=== PATIENT | female | born 1990 | race Hispanic/Latino ===

== ENCOUNTER 2017-10-15 11:53 | Emergency (ER) | payer SELFPAY ==
--- NOTE | 2017-10-15 12:59 | ER ---
Nurse's Notes [facility] Name: Sharon Bee Age: 27 yrs Sex: Female : 1990 Arrival Date: 10/15/2017 Time: 12:01 Bed DIS1 Private MD: None, None Diagnosis: Acute pharyngitis Presentation: 10/15 12:18 Presenting complaint: Patient states: sore throat and cough x 2 days ago. Transition of aa5 care: patient was not received from another setting of care. Onset of symptoms was September 2017. Risk Assessment: Do you want to hurt yourself or someone else? Patient reports no desire to harm self or others. Initial Sepsis Screen: Does the patient meet any 2 criteria? No. Patient's initial sepsis screen is negative. Does the patient have a suspected source of infection? No. Patient's initial sepsis screen is negative. Care prior to arrival: None. 12:18 Method Of Arrival: Ambulatory aa5 12:18 Acuity: MARZENA 4 aa5 Triage Assessment: 12:45 General: Appears in no apparent distress. comfortable, well groomed, well developed, sg well nourished, Behavior is calm, cooperative, appropriate for age. 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 - Social history:: Smoking status: Patient uses tobacco products, smokes one-half pack cigarettes per day. - Ebola Screening: : No symptoms or risks identified at this time. Screenin:45 Abuse screen: Denies threats or abuse. Denies injuries from another. Nutritional sg screening: No deficits noted. Tuberculosis screening: No symptoms or risk factors identified. Never had TB. Fall Risk None identified. Assessment: 12:45 General: Appears in no apparent distress. comfortable, well groomed, well developed, sg well nourished, Behavior is calm, cooperative, appropriate for age. Pain: Complains of pain in sore throat. Neuro: Level of Consciousness is awake, alert, obeys commands, Oriented to person, place, time, situation, Reservoir Engineering Manager are equal bilaterally Moves all extremities. Full function Gait is steady, Speech is normal, Facial symmetry appears normal. Cardiovascular: Heart tones S1 S2 present Patient's skin is warm and dry. Chest pain is denied. Respiratory: Airway is patent Respiratory effort is even, unlabored, Respiratory pattern is regular, symmetrical, Breath sounds are clear. GI: No signs and/or symptoms were reported involving the gastrointestinal system. : No signs and/or symptoms were reported regarding the genitourinary system. EENT: Throat is pink. Derm: No signs and/or symptoms reported regarding the dermatologic system. Derm: Skin is pink, warm \T\ dry. Musculoskeletal: No signs and/or symptoms reported regarding the musculoskeletal system. Vital Signs: 12:19 BP 130 / 83; Pulse 85; Resp 16 S; Temp 98.3(TE); Pulse Ox 100% on R/A; Weight 86.18 kg aa5 (R); Height 5 ft. 4 in. (162.56 cm) (R); Pain 6/10; 12:19 Body Mass Index 32.61 (86.18 kg, 162.56 cm) aa5 ED Course: 12:01 Patient arrived in ED. mr 12:01 None, None is Private Physician. mr 12:02 Ashley Newberry FNP-C [facility]. snw 12:02 Urban Turner MD is Attending Physician. snw 12:19 Triage completed. aa5 12:19 Arm band placed on. aa5 12:45 Patient has correct armband on for positive identification. Bed in low position. Call sg light in reach. Pulse ox on. NIBP on. 13:03 Alexandru Mcgregor RN is Primary Nurse. sg 13:03 No provider procedures requiring assistance completed. Patient did not have IV access sg during this emergency room visit. Administered Medications: 13:03 Drug: Zithromax 500 mg Route: PO; sg Outcome: 12:59 Discharge ordered by . snw 13:03 Discharged to home ambulatory. sg 13:03 Condition: good 13:03 Discharge instructions given to patient, Instructed on discharge instructions, follow up and referral plans. safety practices, Demonstrated understanding of instructions, follow-up care, medications, Prescriptions given X 1. 13:04 Patient left the ED. sg Signatures: Alexandru Mcgregor RN RN sg Therrien, Shelly, FNP-C FNP-Csnw Deng, Nalini mr Rouse, Abbie, RN RN aa5
--- NOTE | 2017-10-15 12:59 | EDPHYS ---
Physician Documentation [facility] Name: Sharon Bee Age: 27 yrs Sex: Female : 1990 Arrival Date: 10/15/2017 Time: 12:01 Bed DIS1 Private MD: None, None ED Physician Urban Turner HPI: 10/15 13:18 This 27 yrs old Female presents to ER via Ambulatory with complaints of Sore snw Throat. 13:18 The patient presents with sore throat. The patient describes throat pain as scratchy, snw suffocating. Onset: The symptoms/episode began/occurred suddenly, 2 day(s) ago, and became persistent. Severity of symptoms: At their worst the symptoms were moderate. Associated signs and symptoms: The patient has no apparent associated signs or symptoms. The patient has not experienced similar symptoms in the past. It is unknown whether or not the patient has recently seen a physician. 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 - Social history:: Smoking status: Patient uses tobacco products, smokes one-half pack cigarettes per day. - Ebola Screening: : No symptoms or risks identified at this time. ROS: 13:17 Constitutional: Negative for fever, chills, and weight loss, Eyes: Negative for injury, snw pain, redness, and discharge, Neck: Negative for injury, pain, and swelling, Cardiovascular: Negative for chest pain, palpitations, and edema, Respiratory: Negative for shortness of breath, cough, wheezing, and pleuritic chest pain, Abdomen/GI: Negative for abdominal pain, nausea, vomiting, diarrhea, and constipation, Back: Negative for injury and pain, : Negative for injury, bleeding, discharge, and swelling, MS/Extremity: Negative for injury and deformity, Skin: Negative for injury, rash, and discoloration, Neuro: Negative for headache, weakness, numbness, tingling, and seizure. 13:17 ENT: Positive for sore throat. Exam: 13:16 Constitutional: This is a well developed, well nourished patient who is awake, alert, snw and in no acute distress. Head/Face: Normocephalic, atraumatic. Eyes: Pupils equal round and reactive to light, extra-ocular motions intact. Lids and lashes normal. Conjunctiva and sclera are non-icteric and not injected. Cornea within normal limits. Periorbital areas with no swelling, redness, or edema. Chest/axilla: Normal chest wall appearance and motion. Nontender with no deformity. No lesions are appreciated. Cardiovascular: Regular rate and rhythm with a normal S1 and S2. No gallops, murmurs, or rubs. Normal PMI, no JVD. No pulse deficits. Respiratory: Lungs have equal breath sounds bilaterally, clear to auscultation and percussion. No rales, rhonchi or wheezes noted. No increased work of breathing, no retractions or nasal flaring. Abdomen/GI: Soft, non-tender, with normal bowel sounds. No distension or tympany. No guarding or rebound. No evidence of tenderness throughout. Back: No spinal tenderness. No costovertebral tenderness. Full range of motion. Skin: Warm, dry with normal turgor. Normal color with no rashes, no lesions, and no evidence of cellulitis. MS/ Extremity: Pulses equal, no cyanosis. Neurovascular intact. Full, normal range of motion. Neuro: Awake and alert, GCS 15, oriented to person, place, time, and situation. Cranial nerves II-XII grossly intact. Motor strength 5/5 in all extremities. Sensory grossly intact. Cerebellar exam normal. Normal gait. 13:16 ENT: TM's: not visable, because of cerumen, Nose: is normal, Mouth: is normal, Posterior pharynx: Tonsils: bilaterally enlarged, with erythema, erythema, that is moderate, Dental exam: normal, Breath odor: is normal. 13:16 Neck: External neck: is normal, ROM/movement: is normal, Lymph nodes: lymphadenopathy is appreciated, anterior cervical nodes. Vital Signs: 12:19 BP 130 / 83; Pulse 85; Resp 16 S; Temp 98.3(TE); Pulse Ox 100% on R/A; Weight 86.18 kg aa5 (R); Height 5 ft. 4 in. (162.56 cm) (R); Pain 6/10; 12:19 Body Mass Index 32.61 (86.18 kg, 162.56 cm) aa5 MDM: 12:46 Patient medically screened. snw 13:17 Data reviewed: vital signs, nurses notes. Data interpreted: Pulse oximetry: on room air snw is 100 %. Interpretation: normal. Counseling: I had a detailed discussion with the patient and/or guardian regarding: the historical points, exam findings, and any diagnostic results supporting the discharge/admit diagnosis, the need for outpatient follow up, to return to the emergency department if symptoms worsen or persist or if there are any questions or concerns that arise at home. Special discussion: Based on the history and exam findings, there is no indication for further emergent testing or inpatient evaluation. I discussed with the patient/guardian the need to see the primary care provider for further evaluation of the symptoms. Administered Medications: 13:03 Drug: Zithromax 500 mg Route: PO; sg Disposition: 10/15/17 12:59 Discharged to Home. Impression: Acute pharyngitis. - Condition is Stable. - Discharge Instructions: Hypertension, Pharyngitis, Rehydration, Adult. - Prescriptions for Zithromax 500 mg Oral Tablet - take 1 tablet by ORAL route once daily for 5 days; 5 tablet. - Medication Reconciliation Form, Thank You Letter, Antibiotic Education, Prescription Opioid Use form. - Follow up: Private Physician; When: 2 - 3 days; Reason: Recheck today's complaints, Continuance of care, Re-evaluation by your physician. Follow up: Emergency Department; When: As needed; Reason: Worsening of condition. Addendum: 10/18/2017 06:16 Co-signature as Attending Physician, Urban Turner MD. g s Signatures: Alexandru Mcgregor RN RN sg Ashley Newberry, PHOTOSTAT OPERATOR HELPER-C PHOTOSTAT OPERATOR HELPER-Csnw Abbie Rouse RN RN aa5 Urban Turner MD MD Corrections: (The following items were deleted from the chart) 10/15 13:04 12:59 10/15/2017 12:59 Discharged to Home. Impression: Acute pharyngitis. Condition is sg Stable. Forms are Medication Reconciliation Form, Thank You Letter, Antibiotic Education, Prescription Opioid Use. Follow up: Private Physician; When: 2 - 3 days; Reason: Recheck today's complaints, Continuance of care, Re-evaluation by your physician. Follow up: Emergency Department; When: As needed; Reason: Worsening of condition. snw
[2017-10-15] MEDS ORDERED: AZITHROMYCIN 250 MG TAB ONE (13:04)
[2017-10-15 13:09] VITALS: BP 130/83; TEMP 98.3; O2SAT 100
== END 2017-10-15 13:04 | disposition home or self-care (01) ==
LOC: ER 11:53
DX: J02.9 Acute pharyngitis, unspecified (principal); F17.210 Nicotine dependence, cigarettes, uncomplicated
CPT/HCPCS: 99283

== ENCOUNTER 2017-10-18 11:03 | Emergency (ER) | payer SELFPAY ==
[2017-10-18] MEDS ORDERED: DEXAMETHASONE 10 MG/ML VIAL ONE (11:36)
--- NOTE | 2017-10-18 12:24 | ER ---
Nurse's Notes [facility] Name: Sharon Bee Age: 27 yrs Sex: Female : 1990 Arrival Date: 10/18/2017 Time: 11:05 Bed 12 Private MD: None, None Diagnosis: Streptococcal pharyngitis Presentation: 10/18 11:11 Presenting complaint: Patient states: " I was seen her about 3 days ago and dx w/ ph pharyngitis but my throat is still really hurting and my L ear hurts." Pt denies fever, N/V/D. Transition of care: patient was not received from another setting of care. Onset of symptoms was October 18, 2017. Risk Assessment: Do you want to hurt yourself or someone else? Patient reports no desire to harm self or others. Initial Sepsis Screen: Does the patient meet any 2 criteria? Yes Does the patient have a suspected source of infection? No. Patient's initial sepsis screen is negative. Care prior to arrival: None. 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 - Social history:: Smoking status: Patient uses tobacco products, denies chronic smoking, but will smoke occasionally. - Ebola Screening: : No symptoms or risks identified at this time. Screenin:18 Abuse screen: Denies threats or abuse. Denies injuries from another. Nutritional ph screening: No deficits noted. Tuberculosis screening: No symptoms or risk factors identified. Fall Risk None identified. Assessment: 11:16 General: Appears in no apparent distress. comfortable, Behavior is calm, cooperative, ph appropriate for age, Denies fever. Pain: Complains of pain in left ear. Neuro: Level of Consciousness is awake, alert, obeys commands, Oriented to person, place, time, situation. Cardiovascular: Capillary refill < 3 seconds Patient's skin is warm and dry. Respiratory: Airway is patent Respiratory effort is even, unlabored, Breath sounds are clear bilaterally. Denies cough, shortness of breath. GI: No signs and/or symptoms were reported involving the gastrointestinal system. EENT: Throat is reddened bilaterally Reports pain when swallowing. Derm: Skin is intact, is healthy with good turgor, Skin is pink, warm \\T\\ dry. Musculoskeletal: Circulation, motion, and sensation intact. Range of motion: intact in all extremities. Vital Signs: 11:13 BP 119 / 78; Pulse 68; Resp 20; Temp 97.8(TE); Pulse Ox 100% on R/A; Weight 86.18 kg; ph Height 5 ft. 4 in. (162.56 cm); Pain 8/10; 11:13 Body Mass Index 32.61 (86.18 kg, 162.56 cm) ph ED Course: 11:05 Patient arrived in ED. sb2 11:05 None, None is Private Physician. sb2 11:09 Fernando Madrigal [facility]. pm1 11:09 Manolo Bravo MD is Attending Physician. pm1 11:11 Tina Gaston RN is Primary Nurse. ph 11:13 Triage completed. ph 11:14 Arm band placed on. ph 11:18 Patient has correct armband on for positive identification. Bed in low position. Call light in reach. 12:58 No provider procedures requiring assistance completed. Patient did not have IV access hb during this emergency room visit. Administered Medications: 11:49 Drug: Decadron 10 mg Route: IM; Site: right vastus lateralis; ph 12:41 Drug: Bicillin L-A 1.2 million units Route: IM; Site: right gluteus; hb Outcome: 12:23 Discharge ordered by . pm1 12:58 Discharged to home ambulatory. hb 12:58 Condition: stable 12:58 Discharge instructions given to patient, Instructed on discharge instructions, follow up and referral plans. medication usage, Demonstrated understanding of instructions, follow-up care, medications. 12:58 Patient left the ED. hb Signatures: Tina Gaston RN RN Fernando Madrigal NP STUDENT TEACHER pm1 Enma Pritchard RN RN Caron Lewis sb2
--- NOTE | 2017-10-18 12:24 | EDPHYS ---
Physician Documentation [facility] Name: Sharon Bee Age: 27 yrs Sex: Female : 1990 Arrival Date: 10/18/2017 Time: 11:05 Bed 12 Private MD: None, None ED Physician Manolo Bravo HPI: 10/18 11:25 This 27 yrs old Female presents to ER via Ambulatory with complaints of Sore pm1 Throat, Ear Pain. 11:25 The patient presents with sore throat. The patient describes throat pain as constant. pm1 Onset: The symptoms/episode began/occurred 5 day(s) ago. Severity of symptoms: in the emergency department the symptoms are actually worse. Modifying factors: The symptoms are alleviated by nothing, the symptoms are aggravated by foods, swallowing, Patient's oral intake status: good Denies contact with similarly ill indivduals. Associated signs and symptoms: Pertinent positives: earache, Pertinent negatives chills, fever. The patient has been recently seen at the [facility] Emergency Department, this week, for similar complaints was given a prescription for antibiotics. Patient seen here 3 days ago and prescribed azithromycin. Patient complaining of sore throat and left earache. Sore throat not improved with abs therapy. 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 - Social history:: Smoking status: Patient uses tobacco products, denies chronic smoking, but will smoke occasionally. - Ebola Screening: : No symptoms or risks identified at this time. ROS: 11:25 Constitutional: Negative for fever, chills, and weight loss, Eyes: Negative for injury, pm1 pain, redness, and discharge. 11:25 Neck: Negative for injury, pain, and swelling, Cardiovascular: Negative for chest pain, palpitations, and edema, Respiratory: Negative for shortness of breath, cough, wheezing, and pleuritic chest pain, Abdomen/GI: Negative for abdominal pain, nausea, vomiting, diarrhea, and constipation, Back: Negative for injury and pain, : Negative for injury, bleeding, discharge, and swelling, MS/Extremity: Negative for injury and deformity, Skin: Negative for injury, rash, and discoloration, Neuro: Negative for headache, weakness, numbness, tingling, and seizure. 11:25 ENT: Positive for ear pain, sore throat, Negative for sinus congestion, sinus pain, difficulty swallowing, difficulty handling secretions. Exam: 11:25 Constitutional: This is a well developed, well nourished patient who is awake, alert, pm1 and in no acute distress. Head/Face: Normocephalic, atraumatic. Eyes: Pupils equal round and reactive to light, extra-ocular motions intact. Lids and lashes normal. Conjunctiva and sclera are non-icteric and not injected. Cornea within normal limits. Periorbital areas with no swelling, redness, or edema. 11:25 Chest/axilla: Normal chest wall appearance and motion. Nontender with no deformity. No lesions are appreciated. Cardiovascular: Regular rate and rhythm with a normal S1 and S2. No gallops, murmurs, or rubs. Normal PMI, no JVD. No pulse deficits. Respiratory: Lungs have equal breath sounds bilaterally, clear to auscultation and percussion. No rales, rhonchi or wheezes noted. No increased work of breathing, no retractions or nasal flaring. Abdomen/GI: Soft, non-tender, with normal bowel sounds. No distension or tympany. No guarding or rebound. No evidence of tenderness throughout. Back: No spinal tenderness. No costovertebral tenderness. Full range of motion. Skin: Warm, dry with normal turgor. Normal color with no rashes, no lesions, and no evidence of cellulitis. MS/ Extremity: Pulses equal, no cyanosis. Neurovascular intact. Full, normal range of motion. 11:25 ENT: External ear(s): are unremarkable, Ear canal(s): cerumen impaction, occluding the right ear canal, occluding the left ear canal, TM's: not visable, because of cerumen, Nose: is normal, no acute changes, Mouth: is normal, no acute changes, Posterior pharynx: Airway: normal, no evidence of obstruction, patent, Tonsils: bilaterally enlarged, with erythema, no exudate, no ulcerations, erythema, that is moderate, exudate, is not appreciated, peritonsillar mass, is not appreciated, pooling of secretions, is not appreciated. 11:25 Neck: C-spine: vertebral tenderness, is not appreciated, crepitus, is not appreciated, Lymph nodes: lymphadenopathy is appreciated, posterior cervical nodes. 11:25 Neuro: Orientation: is normal, Motor: is normal, moves all fours, Gait: is steady, at a normal pace, without difficulty. Vital Signs: 11:13 BP 119 / 78; Pulse 68; Resp 20; Temp 97.8(TE); Pulse Ox 100% on R/A; Weight 86.18 kg; ph Height 5 ft. 4 in. (162.56 cm); Pain 8/10; 11:13 Body Mass Index 32.61 (86.18 kg, 162.56 cm) ph MDM: 11:11 Patient medically screened. pm1 12:21 Data reviewed: vital signs. Data interpreted: Pulse oximetry: on room air is 100 %. pm1 Interpretation: normal. Counseling: I had a detailed discussion with the patient and/or guardian regarding: the historical points, exam findings, and any diagnostic results supporting the discharge/admit diagnosis, lab results, the need for outpatient follow up, to return to the emergency department if symptoms worsen or persist or if there are any questions or concerns that arise at home. 10/18 11:27 Order name: [place] Screen Profile; Complete Time: 12:18 pm1 10/18 11:28 Order name: Strep; Complete Time: 12:18 pm1 10/18 11:25 Order name: Urine Dipstick-Ancillary (obtain specimen); Complete Time: 11:49 pm1 10/18 11:25 Order name: Urine Test (obtain specimen); Complete Time: 11:49 pm1 Administered Medications: 11:49 Drug: Decadron 10 mg Route: IM; Site: right vastus lateralis; ph 12:41 Drug: Bicillin L-A 1.2 million units Route: IM; Site: right gluteus; hb Disposition: 18:04 Co-signature as Attending Physician, Manolo Bravo MD. rn Disposition: 10/18/17 12:23 Discharged to Home. Impression: Streptococcal pharyngitis. - Condition is Stable. - Discharge Instructions: Strep Throat. - Medication Reconciliation Form, Thank You Letter, Antibiotic Education, Work release form form. - Follow up: Emergency Department; When: As needed; Reason: Worsening of condition. Follow up: Private Physician; When: 2 - 3 days; Reason: Recheck today's complaints, Continuance of care, Re-evaluation by your physician. - Problem is new. - Symptoms have improved. Signatures: Dispatcher [employer] EDMS Manolo Bravo MD MD rn Hall, Patricia, RN RN Fernando Madrigal, FOOD COUNTER ATTENDANT FOOD COUNTER ATTENDANT pm1 Enma Pritchard RN RN Corrections: (The following items were deleted from the chart) 12:58 12:23 10/18/2017 12:23 Discharged to Home. Impression: Streptococcal pharyngitis. hb Condition is Stable. Forms are Medication Reconciliation Form, Thank You Letter, Antibiotic Education, Prescription Opioid Use. Follow up: Emergency Department; When: As needed; Reason: Worsening of condition. Follow up: Private Physician; When: 2 - 3 days; Reason: Recheck today's complaints, Continuance of care, Re-evaluation by your physician. Problem is new. Symptoms have improved. pm1
[2017-10-18] MEDS ORDERED: PEN G BENZ LA 1.2MU/2ML SYRINGE IM ONE (12:40)
[2017-10-18 13:02] VITALS: BP 119/78; TEMP 97.8; O2SAT 100
== END 2017-10-18 12:58 | disposition home or self-care (01) ==
LOC: ER 11:03
DX: J02.0 Streptococcal pharyngitis (principal)
CPT/HCPCS: 36415; 86308; 87081; 96372; 99283; J0561; J1100

== ENCOUNTER 2018-05-08 22:01 | Emergency (ER) | payer SELFPAY ==
--- OUTSIDE RECORDS SUMMARY | 2018-05-08 22:04 | XMS REPORT ---
:1990 [facility] Address [address] [place] [address] Dr. Amaral [address] [place] [id number] Care Team Providers Name Role Phone Unavailable Unavailable Unavailable Problems This patient has no known problems. Allergies, Adverse Reactions, Alerts This patient has no known allergies or adverse reactions. Medications This patient has no known medications.
[2018-05-08 23:41] LABS: Protime INR 0.86
[2018-05-08 23:47] LABS: Absolute Lymphocytes (CBC) 2.8 K/uL (0.7-4.9); Absolute Monocytes 0.8 K/uL (0.1-1.3); Absolute Neutrophil 4.7 K/uL (1.8-8.0); Basophils % 0.3 % (0-1.3); Eosinophils % 6.8 % (0-4.4); Hematocrit 38.6 % (36.0-45.0); Lymphocytes % 31.4 % (15.3-44.8); MPV 8.2 fL (7.6-11.3); Monocytes % 8.9 % (3.3-12.3); RBC Red Blood Cell Count 4.11 M/uL (3.86-4.86)
[2018-05-08 23:57] LABS: ALT/SGPT 20 U/L (12-78); AST/SGOT 10 U/L (15-37); Albumin 3.5 g/dL (3.4-5.0); Alkaline Phosphatase 74 U/L (45-117); BUN Blood Urea Nitrogen 21 mg/dL (7-18); Bicarbonate 26 mmol/L (21-32); Bilirubin Direct 0.1 mg/dL (0-0.2); Bilirubin Total 0.2 mg/dL (0.2-1.0); Glucose Level 65 mg/dL (74-106); NT PRO-BNP 29 pg/mL (<125); Potassium 3.7 mmol/L (3.5-5.1); Protein, Total 6.9 g/dL (6.4-8.2); Sodium Level 141 mmol/L (136-145); Troponin (Emerg Dept Use Only) < 0.02 ng/mL (0.0-0.045)
--- NOTE | 2018-05-09 00:08 | ER ---
Nurse's Notes [facility] Name: Sharon Bee Age: 27 yrs Sex: Female : 1990 Arrival Date: 05/08/2018 Time: 22:03 Bed 16 Private MD: Diagnosis: Chest pain, unspecified Presentation: 05/08 22:16 Presenting complaint: Patient states: "I've been getting this pain in my chest off and lp1 on for the last 2 days and I just wanted to get it checked out"; Patient states pain to mid chest and back intermittently without exertion; Denies shortness of breath, dizziness, N/V;. Transition of care: patient was not received from another setting of care. Onset of symptoms was May 07, 2018. Risk Assessment: Do you want to hurt yourself or someone else? Patient reports no desire to harm self or others. Initial Sepsis Screen: Does the patient meet any 2 criteria? No. Patient's initial sepsis screen is negative. Does the patient have a suspected source of infection? No. Patient's initial sepsis screen is negative. Care prior to arrival: None. 22:16 Method Of Arrival: Ambulatory lp1 22:16 Acuity: MARZENA 3 lp1 Triage Assessment: 22:21 General: Appears in no apparent distress. comfortable, Behavior is calm, cooperative, lp1 appropriate for age. Pain: Denies pain. Cardiovascular: Patient's skin is warm and dry. 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 - Social history:: Smoking status: Patient uses tobacco products, denies chronic smoking, but will smoke occasionally, Patient uses alcohol, occasionally. street drugs, marijuana. - Ebola Screening: : No symptoms or risks identified at this time. Screenin:21 Abuse screen: Denies threats or abuse. Denies injuries from another. Nutritional lp1 screening: No deficits noted. Tuberculosis screening: No symptoms or risk factors identified. Fall Risk None identified. Assessment: 22:20 General: Appears in no apparent distress. comfortable, Behavior is calm, cooperative, rr5 appropriate for age. Pain: Complains of pain in chest Pain radiates to back Pain currently is 0 out of 10 on a pain scale. Quality of pain is described as sharp, Pain began gradually, Is intermittent. Neuro: Level of Consciousness is awake, alert, obeys commands, Oriented to person, place, time, situation, Appropriate for age. Cardiovascular: Reports chest pain, Capillary refill < 3 seconds Patient's skin is warm and dry. Respiratory: Airway is patent Respiratory effort is even, unlabored, Respiratory pattern is regular, symmetrical. GI: No signs and/or symptoms were reported involving the gastrointestinal system. : No signs and/or symptoms were reported regarding the genitourinary system. EENT: No signs and/or symptoms were reported regarding the EENT system. Derm: Skin is intact, Skin temperature is warm. Musculoskeletal: Capillary refill < 3 seconds, Range of motion: intact in all extremities. 23:20 Reassessment: Patient appears in no apparent distress at this time. No changes from rr5 previously documented assessment. Patient and/or family updated on plan of care and expected duration. Pain level reassessed. awaiting for laboratory results. 05/09 00:22 Reassessment: Patient appears in no apparent distress at this time. Patient is alert, rr5 oriented x 3, equal unlabored respirations, skin warm/dry/pink. discharge instruction given and explained without complaints made. Patient denies pain at this time. Vital Signs: 05/08 22:19 BP 124 / 78; Pulse 85; Resp 16; Temp 99(O); Pulse Ox 100% on R/A; Weight 81.65 kg; lp1 Height 5 ft. 4 in. (162.56 cm); Pain 0/10; 23:20 BP 115 / 70; Pulse 61; Resp 17; Pulse Ox 100% ; rr5 05/09 00:20 BP 118 / 66; Pulse 64; Resp 17; Pulse Ox 99% ; rr5 05/08 22:19 Body Mass Index 30.90 (81.65 kg, 162.56 cm) lp1 ED Course: 05/08 22:03 Patient arrived in ED. am2 22:13 Fernando Madrigal NP is PHCP. pm1 22:13 Doug Wilson MD is Attending Physician. pm1 22:17 Luevano, Bebeto, RN is Primary Nurse. rr5 22:19 Triage completed. lp1 22:20 Arm band placed on left wrist. lp1 22:20 Patient has correct armband on for positive identification. Placed in gown. Bed in low rr5 position. Call light in reach. Side rails up X2. desk monitor on. Pulse ox on. NIBP on. 22:21 Patient maintains SpO2 saturation greater than 95% on room air. lp1 22:44 XRAY Chest (1 view) In Process Unspecified. EDMS 23:00 Inserted saline lock: 20 gauge in left antecubital area, using aseptic technique. Blood ds4 collected. 23:10 Basic Metabolic Panel Sent. ds4 23:10 CBC with Diff Sent. ds4 23:10 LFT's Sent. ds4 23:10 Magnesium Sent. ds4 23:10 NT PRO-BNP Sent. ds4 23:10 PT-INR Sent. ds4 23:10 Troponin (emerg Dept Use Only) Sent. ds4 02 00:24 No provider procedures requiring assistance completed. IV discontinued, intact, rr5 bleeding controlled, No redness/swelling at site. Pressure dressing applied. Administered Medications: No medications were administered Outcome: 00:06 Discharge ordered by MD. pm1 00:24 Discharged to home ambulatory, with family. rr5 00:24 Condition: stable 00:24 Discharge instructions given to patient, Instructed on discharge instructions, follow up and referral plans. Demonstrated understanding of instructions, follow-up care. 00:24 Patient left the ED. rr5 Signatures: Dispatcher [employer] EDTX Renee Duque, KELLEY RN lp1 Nam Bailey ds4 Fernando Madrigal NP VOLUNTEER SERVICES COORDINATOR pm1 Amanda Mendoza am2 Bebeto Luevano, RN RN rr5
--- NOTE | 2018-05-09 00:08 | EDPHYS ---
Physician Documentation [facility] Name: Sharon Bee Age: 27 yrs Sex: Female : 1990 Arrival Date: 05/08/2018 Time: 22:03 Bed 16 Private MD: ED Physician Doug Wilson HPI: 05/08 23:46 This 27 yrs old Female presents to ER via Ambulatory with complaints of Chest pm1 Pain. 23:46 The patient or guardian reports chest pain that is located primarily in the anterior pm1 aspect of left upper chest. The pain does not radiate. Associated signs and symptoms: Pertinent negatives: abdominal pain, cough, dizziness, nausea, shortness of breath, vomiting. The chest pain is described as sharp. Duration: The patient or guardian reports multiple episodes, that are intermittent, the episodes last approximately 2 second(s). Modifying factors: The symptoms are alleviated by nothing. the symptoms are aggravated by deep breath. Severity of pain: in the emergency department the pain has resolved. The patient has not experienced similar symptoms in the past. The patient has not recently seen a physician. Onset: 2 days ago. 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 - Social history:: Smoking status: Patient uses tobacco products, denies chronic smoking, but will smoke occasionally, Patient uses alcohol, occasionally. street drugs, marijuana. - Ebola Screening: : No symptoms or risks identified at this time. ROS: 23:46 Constitutional: Negative for fever, chills, and weight loss, Eyes: Negative for injury, pm1 pain, redness, and discharge, ENT: Negative for injury, pain, and discharge, Neck: Negative for injury, pain, and swelling. 23:46 Respiratory: Negative for shortness of breath, cough, wheezing, and pleuritic chest pain, Abdomen/GI: Negative for abdominal pain, nausea, vomiting, diarrhea, and constipation, Back: Negative for injury and pain, : Negative for injury, bleeding, discharge, and swelling, MS/Extremity: Negative for injury and deformity, Skin: Negative for injury, rash, and discoloration, Neuro: Negative for headache, weakness, numbness, tingling, and seizure. 23:46 Cardiovascular: Positive for chest pain, Negative for edema, orthopnea, palpitations. Exam: 23:46 Constitutional: This is a well developed, well nourished patient who is awake, alert, pm1 and in no acute distress. Head/Face: Normocephalic, atraumatic. Eyes: Pupils equal round and reactive to light, extra-ocular motions intact. Lids and lashes normal. Conjunctiva and sclera are non-icteric and not injected. Cornea within normal limits. Periorbital areas with no swelling, redness, or edema. ENT: Nares patent. No nasal discharge, no septal abnormalities noted. Tympanic membranes are normal and external auditory canals are clear. Oropharynx with no redness, swelling, or masses, exudates, or evidence of obstruction, uvula midline. Mucous membranes moist. Neck: Trachea midline, no thyromegaly or masses palpated, and no cervical lymphadenopathy. Supple, full range of motion without nuchal rigidity, or vertebral point tenderness. No Meningismus. 23:46 Cardiovascular: Regular rate and rhythm with a normal S1 and S2. No gallops, murmurs, or rubs. Normal PMI, no JVD. No pulse deficits. Respiratory: Lungs have equal breath sounds bilaterally, clear to auscultation and percussion. No rales, rhonchi or wheezes noted. No increased work of breathing, no retractions or nasal flaring. Abdomen/GI: Soft, non-tender, with normal bowel sounds. No distension or tympany. No guarding or rebound. No evidence of tenderness throughout. Back: No spinal tenderness. No costovertebral tenderness. Full range of motion. Skin: Warm, dry with normal turgor. Normal color with no rashes, no lesions, and no evidence of cellulitis. MS/ Extremity: Pulses equal, no cyanosis. Neurovascular intact. Full, normal range of motion. 23:46 Chest/axilla: Inspection: normal, Palpation: tenderness, of the anterior aspect of left upper chest, that totally reproduces the patient's complaints. 23:46 Neuro: Orientation: is normal, Motor: is normal, moves all fours. Vital Signs: 22:19 BP 124 / 78; Pulse 85; Resp 16; Temp 99(O); Pulse Ox 100% on R/A; Weight 81.65 kg; lp1 Height 5 ft. 4 in. (162.56 cm); Pain 0/10; 23:20 BP 115 / 70; Pulse 61; Resp 17; Pulse Ox 100% ; rr5 05/09 00:20 BP 118 / 66; Pulse 64; Resp 17; Pulse Ox 99% ; rr5 05/08 22:19 Body Mass Index 30.90 (81.65 kg, 162.56 cm) lp1 MDM: 05/08 22:13 Patient medically screened. pm1 23:48 Data reviewed: vital signs. Data interpreted: Pulse oximetry: on room air is 100 %. pm1 Interpretation: normal. 05/09 00:06 Counseling: I had a detailed discussion with the patient and/or guardian regarding: the pm1 historical points, exam findings, and any diagnostic results supporting the discharge/admit diagnosis, lab results, radiology results, the need for outpatient follow up, to return to the emergency department if symptoms worsen or persist or if there are any questions or concerns that arise at home. 00:06 JOSETTE Risk Score: TOTAL SCORE = 0. pm1 05/08 22:32 Order name: Basic Metabolic Panel; Complete Time: 00:04 pm1 05/08 22:32 Order name: CBC with Diff; Complete Time: 00:04 pm05/08 22:32 Order name: LFT's; Complete Time: 00:04 pm05/08 22:32 Order name: Magnesium; Complete Time: 00:04 pm05/08 22:32 Order name: NT PRO-BNP; Complete Time: 00:04 pm05/08 22:32 Order name: PT-INR; Complete Time: 23:46 pm1 05/08 22:32 Order name: Troponin (emerg Dept Use Only); Complete Time: 00:04 pm1 05/08 22:32 Order name: XRAY Chest (1 view) pm1 05/08 22:32 Order name: EKG; Complete Time: 22:34 pm1 05/08 22:32 Order name: Cardiac monitoring; Complete Time: 23:10 pm1 05/08 22:32 Order name: EKG - Nurse/Tech; Complete Time: 23:09 pm1 05/08 22:32 Order name: IV Saline Lock; Complete Time: 23:09 pm1 02 22:32 Order name: Labs collected and sent; Complete Time: 23:09 pm1 05/08 22:32 Order name: O2 Per Protocol; Complete Time: 23:09 pm1 02 22:32 Order name: O2 Sat Monitoring; Complete Time: 23:09 pm1 Administered Medications: No medications were administered Disposition: 07:56 Co-signature as Attending Physician, Doug Wilson MD I agree with the assessment and gilda plan of care. Disposition: 05/09/18 00:06 Discharged to Home. Impression: Chest pain, unspecified. - Condition is Stable. - Discharge Instructions: Nonspecific Chest Pain. - Medication Reconciliation Form, Thank You Letter, Antibiotic Education, Prescription Opioid Use, Work release form form. - Follow up: Emergency Department; When: As needed; Reason: Worsening of condition. Follow up: Private Physician; When: 2 - 3 days; Reason: Recheck today's complaints, Continuance of care, Re-evaluation by your physician. - Problem is new. - Symptoms have improved. Signatures: Dispatcher [employer] EDDoug Tipton MD MD cha Pena, Laura, RN RN lp1 Fernando Madrigal, JUSTICE TERMINAL GAUGER pm1 Bebeto Luevano, RN RN rr5 Corrections: (The following items were deleted from the chart) 00:24 00:06 05/09/2018 00:06 Discharged to Home. Impression: Chest pain, unspecified. rr5 Condition is Stable. Forms are Medication Reconciliation Form, Thank You Letter, Antibiotic Education, Prescription Opioid Use. Follow up: Emergency Department; When: As needed; Reason: Worsening of condition. Follow up: Private Physician; When: 2 - 3 days; Reason: Recheck today's complaints, Continuance of care, Re-evaluation by your physician. Problem is new. Symptoms have improved. pm1
[2018-05-09 01:51] VITALS: TEMP 99
[2018-05-09 01:54] VITALS: BP 118/66; O2SAT 99
--- NOTE | 2018-05-09 06:50 | RAD REPORT ---
EXAM DESCRIPTION: RAD - Chest Single View - 05/08/2018 10:44 pm CLINICAL HISTORY: Intermittent chest pain COMPARISON: January 2016 TECHNIQUE: AP portable chest image was obtained 2239 hours . FINDINGS: No focal lung parenchymal process. Adjusting for more shallow inspiration, current exam is not significantly different from the comparison. Heart and vasculature are normal. No measurable ple ural effusion and no pneumothorax. No acute bony abnormality seen. No acute aortic findings suspected . IMPRESSION: No acute cardiopulmonary process. No suspicious interval change.
--- NOTE | 2018-05-09 08:09 | EKG ---
Test Date: 2018-04-07 Test Time: 22:24:50 Cheese Specialist: RR MEASUREMENT RESULTS: Intervals: Rate: 69 MA: 164 QRSD: 88 QT: 374 QTc: 400 [place]: P: 72 MA: 164 QRS: 28 T: 68 INTERPRETIVE STATEMENTS: Normal sinus rhythm Lateral infarct, age undetermined Abnormal ECG No previous ECG available for comparison Electronically Signed On 05-09-18 08:08:40 MOTTLER MACHINE FEEDER by Aly Robison
== END 2018-05-09 00:24 | disposition home or self-care (01) ==
LOC: ER 22:01
DX: R07.9 Chest pain, unspecified (principal); Z72.0 Tobacco use
CPT/HCPCS: 36415; 71045; 80048; 80076; 83735; 83880; 84484; 85025; 85610; 93005; 99285

== ENCOUNTER 2018-07-08 19:25 | Emergency (ER) | payer SELFPAY ==
--- OUTSIDE RECORDS SUMMARY | 2018-07-08 19:27 | XMS REPORT ---
:1990 [facility] Address [address] [place] [address] Dr. Amaral [address] [place] [id number] Care Team Providers Name Role Phone Unavailable Unavailable Unavailable Problems This patient has no known problems. Allergies, Adverse Reactions, Alerts This patient has no known allergies or adverse reactions. Medications This patient has no known medications.
--- NOTE | 2018-07-08 20:07 | EDPHYS ---
Physician Documentation [facility] Name: hSaron Bee Age: 27 yrs Sex: Female : 1990 Arrival Date: 07/08/2018 Time: 19:26 Bed 10 Private MD: ED Physician Doug Wilson HPI: 07/08 19:48 This 27 yrs old Female presents to ER via Ambulatory with complaints of Sore kb Throat, Fever. 19:48 The patient presents with sore throat. The patient describes throat pain as constant. kb Onset: The symptoms/episode began/occurred 2 day(s) ago. Severity of symptoms: At their worst the symptoms were moderate, in the emergency department the symptoms are unchanged. Modifying factors: The symptoms are alleviated by nothing, the symptoms are aggravated by swallowing, Patient's oral intake status: good. Associated signs and symptoms: Pertinent positives: fever, Sore throat Pertinent negatives chest pain, chills, cough, diarrhea, dysphagia, earache, flu-like symptoms, headache, nausea, rhinorrhea, shortness of breath, vomiting. The patient has not experienced similar symptoms in the past. The patient has not recently seen a physician. 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 - Social history:: Smoking status: Patient uses tobacco products, denies chronic smoking, but will smoke occasionally. - Ebola Screening: : No symptoms or risks identified at this time. ROS: 19:47 Cardiovascular: Negative for chest pain, palpitations, and edema, Respiratory: Negative kb for shortness of breath, cough, wheezing, and pleuritic chest pain, Abdomen/GI: Negative for abdominal pain, nausea, vomiting, diarrhea, and constipation, Back: Negative for injury and pain, MS/Extremity: Negative for injury and deformity, Skin: Negative for injury, rash, and discoloration, Neuro: Negative for headache, weakness, numbness, tingling, and seizure. 19:47 Constitutional: Positive for fever, Negative for body aches, chills, fatigue, malaise, poor PO intake, weight loss. 19:47 ENT: Positive for sore throat. Exam: 19:47 Constitutional: This is a well developed, well nourished patient who is awake, alert, kb and in no acute distress. Head/Face: Normocephalic, atraumatic. Neck: Trachea midline, no thyromegaly or masses palpated, and no cervical lymphadenopathy. Supple, full range of motion without nuchal rigidity, or vertebral point tenderness. No Meningismus. Chest/axilla: Normal chest wall appearance and motion. Nontender with no deformity. No lesions are appreciated. Cardiovascular: Regular rate and rhythm with a normal S1 and S2. No gallops, murmurs, or rubs. Normal PMI, no JVD. No pulse deficits. Respiratory: Lungs have equal breath sounds bilaterally, clear to auscultation and percussion. No rales, rhonchi or wheezes noted. No increased work of breathing, no retractions or nasal flaring. Abdomen/GI: Soft, non-tender, with normal bowel sounds. No distension or tympany. No guarding or rebound. No evidence of tenderness throughout. Skin: Warm, dry with normal turgor. Normal color with no rashes, no lesions, and no evidence of cellulitis. MS/ Extremity: Pulses equal, no cyanosis. Neurovascular intact. Full, normal range of motion. Neuro: Awake and alert, GCS 15, oriented to person, place, time, and situation. Cranial nerves II-XII grossly intact. Motor strength 5/5 in all extremities. Sensory grossly intact. Cerebellar exam normal. Normal gait. 19:47 ENT: External ear(s): are unremarkable, Ear canal(s): are normal, TM's: are normal, Nose: is normal, Mouth: is normal, Posterior pharynx: Airway: normal, Tonsils: are normal in appearance, bilaterally enlarged, with erythema, Uvula: normal, midline, swelling, that is mild, erythema, that is mild, exudate, is not appreciated. Vital Signs: 19:34 BP 118 / 68; Pulse 84; Resp 18; Temp 98.5(O); Pulse Ox 99% on R/A; Weight 80.74 kg (R); ak1 Height 5 ft. 4 in. (162.56 cm); Pain 6/10; 19:34 Body Mass Index 30.55 (80.74 kg, 162.56 cm) ak1 MDM: 19:36 Patient medically screened. kb 19:47 Data reviewed: vital signs, nurses notes. Data interpreted: Pulse oximetry: on room air kb is 99 %. Interpretation: normal. 20:06 Counseling: I had a detailed discussion with the patient and/or guardian regarding: the kb historical points, exam findings, and any diagnostic results supporting the discharge/admit diagnosis, lab results, the need for outpatient follow up, a family practitioner, to return to the emergency department if symptoms worsen or persist or if there are any questions or concerns that arise at home. 07/08 19:27 Order name: Flu [facility] 07/08 19:27 Order name: Strep [facility] 07/08 19:27 Order name: Influenza Screen (A ; Complete Time: 20:06 EDMS 07/08 19:27 Order name: Group A Streptococcus Rapid Sc; Complete Time: 19:55 EDMS 07/08 20:02 Order name: Throat Culture EDMS Administered Medications: No medications were administered Disposition: 07/09 06:42 Co-signature as Attending Physician, Doug Wilson MD I agree with the assessment and [facility] plan of care. Disposition: 07/08/18 20:07 Discharged to Home. Impression: Acute pharyngitis. - Condition is Stable. - Discharge Instructions: Pharyngitis, [id number], Sore Throat, [id number]. - Medication Reconciliation Form, Thank You Letter, Antibiotic Education, Prescription Opioid Use, Work release form form. - Follow up: Emergency Department; When: As needed; Reason: Worsening of condition. Follow up: Private Physician; When: 2 - 3 days; Reason: Recheck today's complaints, Continuance of care, Re-evaluation by your physician. Signatures: Dispatcher [employer] EDIA Ayesha Bone FNP-C FNP-Callie Moody RN RN aj1 Doug Wilson MD MD cha Krenek, Amber, RN RN ak1 Corrections: (The following items were deleted from the chart) 07/08 21:09 20:07 07/08/2018 20:07 Discharged to Home. Impression: Acute pharyngitis. Condition is aj1 Stable. Forms are Medication Reconciliation Form, Thank You Letter, Antibiotic Education, Prescription Opioid Use. Follow up: Emergency Department; When: As needed; Reason: Worsening of condition. Follow up: Private Physician; When: 2 - 3 days; Reason: Recheck today's complaints, Continuance of care, Re-evaluation by your physician. kb
--- NOTE | 2018-07-08 20:07 | ER ---
Nurse's Notes [facility] Name: Sharon Bee Age: 27 yrs Sex: Female : 1990 Arrival Date: 07/08/2018 Time: 19:26 Bed 10 Private MD: Diagnosis: Acute pharyngitis Presentation: 07/08 19:34 Presenting complaint: Patient states: fever 101.1 last night. tylenol at 1700. pt c/o ak1 throat pain X2 days. Transition of care: patient was not received from another setting of care. Onset of symptoms was July 06, 2018. Risk Assessment: Do you want to hurt yourself or someone else? Patient reports no desire to harm self or others. Initial Sepsis Screen: Does the patient meet any 2 criteria? No. Patient's initial sepsis screen is negative. Does the patient have a suspected source of infection? No. Patient's initial sepsis screen is negative. Care prior to arrival: None. 19:34 Method Of Arrival: Ambulatory ak1 19:34 Acuity: MARZENA 4 ak1 Triage Assessment: 19:35 General: Appears in no apparent distress. Behavior is calm, cooperative. 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 - Social history:: Smoking status: Patient uses tobacco products, denies chronic smoking, but will smoke occasionally. - Ebola Screening: : No symptoms or risks identified at this time. Screenin:00 Abuse screen: Denies threats or abuse. Denies injuries from another. Nutritional aj1 screening: No deficits noted. Tuberculosis screening: No symptoms or risk factors identified. Fall Risk None identified. Assessment: 20:00 General: Appears in no apparent distress. uncomfortable, Behavior is calm, cooperative, aj1 appropriate for age. Pain: Complains of pain in left aspect of posterior pharynx and right aspect of posterior pharynx. Neuro: Level of Consciousness is awake, alert, obeys commands, Oriented to person, place, time, situation. Cardiovascular: Patient's skin is warm and dry. Respiratory: Airway is patent Respiratory effort is even, unlabored, Respiratory pattern is regular, symmetrical, Breath sounds are clear bilaterally. GI: No signs and/or symptoms were reported involving the gastrointestinal system. : No signs and/or symptoms were reported regarding the genitourinary system. EENT: Throat is reddened has enlarged tonsils bilaterally Reports sore throat. Derm: No signs and/or symptoms reported regarding the dermatologic system. Skin is pink, warm \T\ dry. normal. Musculoskeletal: No signs and/or symptoms reported regarding the musculoskeletal system. Circulation, motion, and sensation intact. 21:08 Reassessment: Patient appears in no apparent distress at this time. No changes from aj1 previously documented assessment. Patient and/or family updated on plan of care and expected duration. Pain level reassessed. Patient is alert, oriented x 3, equal unlabored respirations, skin warm/dry/pink. Vital Signs: 19:34 BP 118 / 68; Pulse 84; Resp 18; Temp 98.5(O); Pulse Ox 99% on R/A; Weight 80.74 kg (R); ak1 Height 5 ft. 4 in. (162.56 cm); Pain 6/10; 19:34 Body Mass Index 30.55 (80.74 kg, 162.56 cm) ak1 ED Course: 19:26 Patient arrived in ED. am2 19:35 Triage completed. ak1 19:35 Arm band placed on Patient placed in an exam room, on a stretcher, Patient notified of ak1 wait time. 19:35 Flu and/or RSV swab sent to lab. Strep swab sent to lab. ak1 19:36 Ayesha Bone FNP-C is PHCP. kb 19:36 Doug Wilson MD is Attending Physician. kb 20:00 Patient has correct armband on for positive identification. Bed in low position. aj1 20:00 No provider procedures requiring assistance completed. aj1 20:49 Callie Romo, KELLEY is Primary Nurse. aj1 21:08 Patient did not have IV access during this emergency room visit. aj1 Administered Medications: No medications were administered Outcome: 20:07 Discharge ordered by . kb 21:08 Discharged to home ambulatory. aj1 21:08 Condition: good 21:08 Discharge instructions given to patient, Instructed on discharge instructions, follow up and referral plans. Demonstrated understanding of instructions, follow-up care. 21:09 Patient left the ED. aj1 Signatures: Ayesha Bone, TERRELL MEJÍA-Callie Moody RN RN aj1 Anai Taylor RN RN ak1 Amanda Mendoza am2
[2018-07-08 21:13] VITALS: BP 118/68; TEMP 98.5; O2SAT 99
== END 2018-07-08 21:09 | disposition home or self-care (01) ==
LOC: ER 19:25
DX: J02.9 Acute pharyngitis, unspecified (principal); Z72.0 Tobacco use
CPT/HCPCS: 87070; 87081; 87804; 99283

== ENCOUNTER 2018-07-28 18:48 | Emergency (ER) | payer SELFPAY ==
--- OUTSIDE RECORDS SUMMARY | 2018-07-28 18:51 | XMS REPORT ---
:1990 [facility] Address [address] [place] [address] Dr. Amaral [address] [place] [id number] Care Team Providers Name Role Phone Unavailable Unavailable Unavailable Problems This patient has no known problems. Allergies, Adverse Reactions, Alerts This patient has no known allergies or adverse reactions. Medications This patient has no known medications.
[2018-07-28] MEDS ORDERED: ALBUTEROL 2.5 MG/3 ML NEB SOL ONE (19:28)
[2018-07-28] MEDS ORDERED: predniSONE 20 MG TAB ONE (19:29)
--- NOTE | 2018-07-28 20:10 | EDPHYS ---
Physician Documentation [facility] Name: Sharon Bee Age: 27 yrs Sex: Female : 1990 Arrival Date: 07/28/2018 Time: 18:50 Bed 5 Private MD: ED Physician Doug Wilson HPI: 07/28 20:00 This 27 yrs old Female presents to ER via Ambulatory with complaints of Cold pm1 Symptoms. 20:00 The patient or guardian reports cough, with productive sputum, that is yellow. Onset: pm1 The symptoms/episode began/occurred yesterday. Severity of symptoms: in the emergency department the symptoms are unchanged. Modifying factors: The symptoms are alleviated by nothing, the symptoms are aggravated by nothing. Associated signs and symptoms: Pertinent positives: fever, sore throat, wheezing, sinus congestion. The patient has not experienced similar symptoms in the past. The patient has not recently seen a physician. 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 - Social history:: Smoking status: Patient/guardian denies using tobacco. - Ebola Screening: : No symptoms or risks identified at this time. ROS: 20:00 Eyes: Negative for injury, pain, redness, and discharge. pm1 20:00 Neck: Negative for injury, pain, and swelling, Cardiovascular: Negative for chest pain, palpitations, and edema. 20:00 Abdomen/GI: Negative for abdominal pain, nausea, vomiting, diarrhea, and constipation, Back: Negative for injury and pain, : Negative for injury, bleeding, discharge, and swelling, MS/Extremity: Negative for injury and deformity, Skin: Negative for injury, rash, and discoloration, Neuro: Negative for headache, weakness, numbness, tingling, and seizure. 20:00 Constitutional: Positive for body aches, fever, Negative for poor PO intake. 20:00 ENT: Positive for ear pain, sinus congestion, sore throat, Negative for difficulty swallowing, difficulty handling secretions, hoarseness. 20:00 Respiratory: Positive for cough, wheezing, Negative for shortness of breath. Exam: 20:00 Constitutional: This is a well developed, well nourished patient who is awake, alert, pm1 and in no acute distress. Head/Face: Normocephalic, atraumatic. Eyes: Pupils equal round and reactive to light, extra-ocular motions intact. Lids and lashes normal. Conjunctiva and sclera are non-icteric and not injected. Cornea within normal limits. Periorbital areas with no swelling, redness, or edema. ENT: Nares patent. No nasal discharge, no septal abnormalities noted. Tympanic membranes are normal and external auditory canals are clear. Oropharynx with no redness, swelling, or masses, exudates, or evidence of obstruction, uvula midline. Mucous membranes moist. Neck: Trachea midline, no thyromegaly or masses palpated, and no cervical lymphadenopathy. Supple, full range of motion without nuchal rigidity, or vertebral point tenderness. No Meningismus. Chest/axilla: Normal chest wall appearance and motion. Nontender with no deformity. No lesions are appreciated. Cardiovascular: Regular rate and rhythm with a normal S1 and S2. No gallops, murmurs, or rubs. Normal PMI, no JVD. No pulse deficits. 20:00 Abdomen/GI: Soft, non-tender, with normal bowel sounds. No distension or tympany. No guarding or rebound. No evidence of tenderness throughout. Back: No spinal tenderness. No costovertebral tenderness. Full range of motion. Skin: Warm, dry with normal turgor. Normal color with no rashes, no lesions, and no evidence of cellulitis. MS/ Extremity: Pulses equal, no cyanosis. Neurovascular intact. Full, normal range of motion. 20:00 Respiratory: the patient does not display signs of respiratory distress, Respirations: normal, Breath sounds: wheezing: expiratory that is mild, is heard diffusely. 20:00 Neuro: Orientation: is normal, Motor: is normal, moves all fours. Vital Signs: 19:00 BP 133 / 82; Pulse 82; Resp 16; Temp 97.8; Pulse Ox 98% on R/A; Weight 77.11 kg; Height la1 5 ft. 4 in. (162.56 cm); 19:00 Body Mass Index 29.18 (77.11 kg, 162.56 cm) la1 MDM: 19:[address] [facility] 20:09 Data reviewed: vital signs. Data interpreted: Pulse oximetry: on room air is 98 %. pm1 Interpretation: normal. Counseling: I had a detailed discussion with the patient and/or guardian regarding: the historical points, exam findings, and any diagnostic results supporting the discharge/admit diagnosis, lab results, the need for outpatient follow up, to return to the emergency department if symptoms worsen or persist or if there are any questions or concerns that arise at home. 07/28 19:12 Order name: Flu; Complete Time: 19:57 pm1 07/28 19:12 Order name: Strep; Complete Time: 19:57 pm1 07/28 19:50 Order name: Throat Culture EDMS Administered Medications: 19:21 Drug: Albuterol 2.5 mg Route: Inhalation; ak1 19:57 Follow up: Response: No adverse reaction ak1 19:21 Drug: predniSONE 60 mg Route: PO; ak1 19:56 Follow up: Response: No adverse reaction ak1 Disposition: 07/28/18 20:09 Discharged to Home. Impression: Bronchitis, not specified as acute or chronic. - Condition is Stable. - Discharge Instructions: Acute Bronchitis, Adult, How to Use an Inhaler. - Prescriptions for Tessalon Perles 100 mg Oral Capsule - take 1 capsule by ORAL route every 8 hours As needed; 15 capsule. Medrol (Juancarlos) 4 mg Oral Tablets, Dose Pack - take 1 tablet by ORAL route as directed - follow package instructions; 1 packet. Albuterol Sulfate 90 mcg/actuation - inhale 1-2 puff by INHALATION route every 4-6 hours; 1 Inhaler. - Medication Reconciliation Form, Thank You Letter, Antibiotic Education, Prescription Opioid Use form. - Follow up: Emergency Department; When: As needed; Reason: Worsening of condition. Follow up: Private Physician; When: 2 - 3 days; Reason: Recheck today's complaints, Continuance of care, Re-evaluation by your physician. - Problem is new. - Symptoms have improved. Addendum: 07/30/2018 11:04 Co-signature as Attending Physician, Doug Wilson MD I agree with the assessment and c vinson plan of care. Signatures: Dispatcher [employer] EDJudy Quintero RN RN aa1 Doug Wilson MD MD cha Attema, Lee, RN RN la1 Anai Taylor RN RN ak1 Fernando Madrigal, WARNING ANALYST WARNING ANALYST pm1 Corrections: (The following items were deleted from the chart) 07/28 20:19 20:09 07/28/2018 20:09 Discharged to Home. Impression: Bronchitis, not specified as aa1 acute or chronic. Condition is Stable. Forms are Medication Reconciliation Form, Thank You Letter, Antibiotic Education, Prescription Opioid Use. Follow up: Emergency Department; When: As needed; Reason: Worsening of condition. Follow up: Private Physician; When: 2 - 3 days; Reason: Recheck today's complaints, Continuance of care, Re-evaluation by your physician. Problem is new. Symptoms have improved. pm1
--- NOTE | 2018-07-28 20:10 | ER ---
Nurse's Notes [facility] Name: Sharon Bee Age: 27 yrs Sex: Female : 1990 Arrival Date: 07/28/2018 Time: 18:50 Bed 5 Private MD: Diagnosis: Bronchitis, not specified as acute or chronic Presentation: 07/28 18:58 Presenting complaint: Patient states: I have been feeling ill for 1.5 days and I am la1 trying to see if I need some antibiotics or something. pt reports cough and lethargy. TMAX 101.1, took tylenol at 1600. Transition of care: patient was not received from another setting of care. Onset of symptoms was July 28, 2018. Risk Assessment: Do you want to hurt yourself or someone else? Patient reports no desire to harm self or others. Initial Sepsis Screen: Does the patient meet any 2 criteria? No. Patient's initial sepsis screen is negative. Does the patient have a suspected source of infection? No. Patient's initial sepsis screen is negative. Care prior to arrival: None. 18:58 Method Of Arrival: Ambulatory la1 18:58 Acuity: MARZENA 4 la1 Triage Assessment: 19:04 General: Appears in no apparent distress. Behavior is calm, cooperative. 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 - Social history:: Smoking status: Patient/guardian denies using tobacco. - Ebola Screening: : No symptoms or risks identified at this time. Screenin:04 Abuse screen: Denies threats or abuse. Denies injuries from another. Nutritional ak1 screening: No deficits noted. Tuberculosis screening: No symptoms or risk factors identified. Fall Risk None identified. Assessment: 19:21 General: Appears in no apparent distress. uncomfortable, Behavior is calm, cooperative. ak1 Pain: Denies pain. Neuro: No deficits noted. Cardiovascular: No deficits noted. Respiratory: Reports cough that is Airway is patent Breath sounds are clear bilaterally. GI: No signs and/or symptoms were reported involving the gastrointestinal system. : No signs and/or symptoms were reported regarding the genitourinary system. EENT: Reports nasal congestion throat pain. Derm: No signs and/or symptoms reported regarding the dermatologic system. Musculoskeletal: No signs and/or symptoms reported regarding the musculoskeletal system. 20:17 Reassessment: Patient appears in no apparent distress at this time. Patient is alert, aa1 oriented x 3, equal unlabored respirations, skin warm/dry/pink. Discussed d/c \T\ f/u instructions with pt; denies questions or concerns at this time. Amb to lobby with steady gait. Patient states feeling better. Vital Signs: 19:00 BP 133 / 82; Pulse 82; Resp 16; Temp 97.8; Pulse Ox 98% on R/A; Weight 77.11 kg; Height la1 5 ft. 4 in. (162.56 cm); 19:00 Body Mass Index 29.18 (77.11 kg, 162.56 cm) la1 ED Course: 18:50 Patient arrived in ED. as 18:59 Triage completed. la1 19:00 Arm band placed on left wrist. la1 19:03 Anai Taylor, KELLEY is Primary Nurse. ak1 19:04 Patient has correct armband on for positive identification. Bed in low position. Call ak1 light in reach. Side rails up X 1. 19:05 Fernando Madrigal NP is PHCP. pm1 19:05 Doug Wilson MD is Attending Physician. pm1 19:22 Flu and/or RSV swab sent to lab. Strep swab sent to lab. ak1 20:17 No provider procedures requiring assistance completed. Patient did not have IV access aa1 during this emergency room visit. Administered Medications: 19:21 Drug: Albuterol 2.5 mg Route: Inhalation; ak1 19:57 Follow up: Response: No adverse reaction ak1 19:21 Drug: predniSONE 60 mg Route: PO; ak1 19:56 Follow up: Response: No adverse reaction ak1 Outcome: 20:09 Discharge ordered by . pm1 20:17 Discharged to home ambulatory, with friend. aa1 20:17 Condition: good 20:17 Discharge instructions given to patient, friend, Instructed on discharge instructions, follow up and referral plans. medication usage, Demonstrated understanding of instructions, follow-up care, medications, Prescriptions given X 3. 20:19 Patient left the ED. aa1 Signatures: Judy Rodriguez RN RN aa1 Charleen Pascal Lee, RN RN la1 Anai Taylor, RN RN ak1 Fernando Madrigal, FACILITIES MANAGER FACILITIES MANAGER pm1
[2018-07-28 20:38] VITALS: BP 133/82; TEMP 97.8; O2SAT 98
== END 2018-07-28 20:19 | disposition home or self-care (01) ==
LOC: ER 18:48
DX: J40 Bronchitis, not specified as acute or chronic (principal); R01.1 Cardiac murmur, unspecified
CPT/HCPCS: 87070; 87081; 87804; J7512

== ENCOUNTER 2019-01-28 12:38 | Emergency (ER) | payer SELFPAY ==
[2019-01-28 13:37] LABS: Urine Blood TRACE (NEG); Urine Glucose NEGATIVE (NEG); Urine Protein NEGATIVE (NEG); Urine pH 6.5 (5.0-7.0)
--- NOTE | 2019-01-28 14:06 | RAD REPORT ---
EXAM DESCRIPTION: RAD - Chest Pa And Lat (2 Views) - 01/28/2019 1:58 pm CLINICAL HISTORY: Cough;Congestion COMPARISON: May 2018 TECHNIQUE: PA and lateral views of the chest were obtained. FINDINGS: The lungs are clear. Heart size is normal and central vasculature is within normal limit s. No pleural effusion or pneumothorax seen. No acute bony finding noted. No aortic abnormality. IMPRESSION: No acute cardiopulmonary process. No significant interval change.
[2019-01-28] MEDS ORDERED: ALBUTEROL 2.5 MG/3 ML NEB SOL ONE (14:29)
[2019-01-28] MEDS ORDERED: IPRATROPIUM BROM 0.5MG/2.5ML ONE (14:29)
[2019-01-28] MEDS ORDERED: predniSONE 20 MG TAB ONE (14:30)
--- NOTE | 2019-01-28 14:56 | ER ---
Nurse's Notes [facility] Name: Sharon Bee Age: 28 yrs Sex: Female : 1990 Arrival Date: 01/28/2019 Time: 12:40 Bed 13 Private MD: Diagnosis: Cough;bronchitis Presentation: 01/28 12:43 Presenting complaint: Patient states: cough/congestion/fever x 1 month. Recently sv started having wheezing, back pain as well. Transition of care: patient was not received from another setting of care. Onset of symptoms was December 2018. Risk Assessment: Do you want to hurt yourself or someone else? Patient reports no desire to harm self or others. Initial Sepsis Screen: Does the patient meet any 2 criteria? No. Patient's initial sepsis screen is negative. Does the patient have a suspected source of infection? No. Patient's initial sepsis screen is negative. Care prior to arrival: Medication(s) given: Excedrin taken this morning. 12:43 Method Of Arrival: Ambulatory sv 12:43 Acuity: MARZENA 3 sv Triage Assessment: 12:47 General: Appears in no apparent distress. uncomfortable, Behavior is calm, cooperative, sv appropriate for age. Pain: Complains of pain in back. Neuro: Level of Consciousness is awake, alert, obeys commands, Gait is steady. Respiratory: Reports cough that is non-productive, Respiratory effort is even, unlabored, Respiratory pattern is regular, symmetrical. 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 - Social history:: Smoking status: Patient uses tobacco products, denies chronic smoking, but will smoke occasionally. - Ebola Screening: : No symptoms or risks identified at this time. - Family history:: not pertinent. - Hospitalizations: : No recent hospitalization is reported. Screenin:32 Abuse screen: Denies threats or abuse. Nutritional screening: No deficits noted. tw2 Tuberculosis screening: No symptoms or risk factors identified. Fall Risk None identified. Assessment: 12:44 Reassessment: Ok by Dr Wilson to order a CXR. sv 14:05 General: Appears in no apparent distress. comfortable, Behavior is calm, cooperative, rb1 Denies fever. Pain: Complains of pain in back Pain currently is 3 out of 10 on a pain scale. Aggravated by coughing. Neuro: Level of Consciousness is awake, alert, obeys commands, Oriented to person, place, time, situation. Cardiovascular: Capillary refill < 3 seconds is brisk in bilateral fingers. Respiratory: Reports cough that is productive, clear, cloudy sputum Airway is patent Respiratory effort is even, unlabored, Respiratory pattern is regular, symmetrical. GI: Reports nausea. : No signs and/or symptoms were reported regarding the genitourinary system. EENT: Reports nasal congestion since x 1 month. Derm: Skin is pink, warm \T\ dry. 15:00 Reassessment: Patient appears in no apparent distress at this time. Patient and/or rb1 family updated on plan of care and expected duration. Pain level reassessed. Patient is alert, oriented x 3, equal unlabored respirations, skin warm/dry/pink. Vital Signs: 12:45 BP 130 / 79; Pulse 89; Resp 20; Temp 98.4; Pulse Ox 99% ; Weight 88.9 kg; Height 5 ft. sv 4 in. (162.56 cm); Pain 3/10; 14:15 BP 131 / 80; Pulse 84; Resp 17; Pulse Ox 100% on R/A; Pain 3/10; rb1 15:15 BP 133 / 78; Pulse 98; Resp 16; Temp 98.3(O); Pulse Ox 100% on R/A; Pain 0/10; rb1 12:45 Body Mass Index 33.64 (88.90 kg, 162.56 cm) sv ED Course: 12:40 Patient arrived in ED. as 12:44 Triage completed. sv 12:45 Arm band placed on. sv 13:13 Urine --Ancillary (enter results) Sent. sv 13:13 Urine Dipstick--Ancillary (enter results) Sent. sv 13:57 Chest Pa And Lat (2 Views) XRAY In Process Unspecified. EDMS 14:00 Bed in low position. Call light in reach. tw2 14:01 Manasa Evans, KELLEY is Primary Nurse. rb1 14:03 Cale Ferrari MD is Attending Physician. wa 14:55 Wade Rueda MD is Referral Physician. wa 15:17 No provider procedures requiring assistance completed. Patient did not have IV access rb1 during this emergency room visit. Administered Medications: 14:34 Drug: Albuterol - atroVENT (3:1) (2.5 mg - 0.5 mg) 3 ml Route: Nebulizer; rb1 15:00 Follow up: Response: No adverse reaction; Marked relief of symptoms rb1 14:34 Drug: predniSONE 60 mg Route: PO; rb1 15:00 Follow up: Response: No adverse reaction rb1 Outcome: 14:56 Discharge ordered by . wa 15:17 Patient left the ED. rb1 15:17 Discharged to home ambulatory. rb1 15:17 Condition: stable 15:17 Discharge instructions given to patient, Instructed on discharge instructions, follow up and referral plans. medication usage, Demonstrated understanding of instructions, follow-up care, medications, Prescriptions given X 3. Signatures: Dispatcher [employer] Roxana Pickens RN RN sv Martinez, Amelia as Barber, Rebecca, RN RN rb1 Ruth Rajan RN RN tw2 Cale Ferrari MD MD oh
--- NOTE | 2019-01-28 14:57 | EDPHYS ---
Physician Documentation [facility] Name: Sharno Bee Age: 28 yrs Sex: Female : 1990 Arrival Date: 01/28/2019 Time: 12:40 Bed 13 Private MD: ED Physician Cale Ferrari HPI: 01/28 14:50 This 28 yrs old Female presents to ER via Ambulatory with complaints of Cough, wa Congestion. 14:50 The patient or guardian reports cough, that is constant, with no sputum. Onset: The wa symptoms/episode began/occurred 4 week(s) ago. Severity of symptoms: At their worst the symptoms were moderate, in the emergency department the symptoms are actually worse, moderately. Modifying factors: The symptoms are alleviated by nothing, the symptoms are aggravated by nothing. Associated signs and symptoms: Pertinent positives: nasal congestion. back pain. The patient has not experienced similar symptoms in the past. The patient has not recently seen a physician. states initially began with URI symptoms. URO symptoms have since improved but cough not getting better. denies SOB. . 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 - Social history:: Smoking status: Patient uses tobacco products, denies chronic smoking, but will smoke occasionally. - Ebola Screening: : No symptoms or risks identified at this time. - Family history:: not pertinent. - Hospitalizations: : No recent hospitalization is reported. ROS: 14:52 Constitutional: Negative for fever, chills, and weight loss, Eyes: Negative for injury, wa pain, redness, and discharge, Neck: Negative for injury, pain, and swelling, Cardiovascular: Negative for chest pain, palpitations, and edema, Abdomen/GI: Negative for abdominal pain, nausea, vomiting, diarrhea, and constipation, Back: Negative for injury and pain, : Negative for injury, bleeding, discharge, and swelling, MS/Extremity: Negative for injury and deformity, Skin: Negative for injury, rash, and discoloration, Neuro: Negative for headache, weakness, numbness, tingling, and seizure, Psych: Negative for depression, anxiety, suicide ideation, homicidal ideation, and hallucinations. 14:52 ENT: Positive for sinus congestion. 14:52 Respiratory: Positive for cough, with no reported sputum. 14:52 All other systems are negative. Exam: 14:53 Constitutional: This is a well developed, well nourished patient who is awake, alert, wa and in no acute distress. Head/Face: Normocephalic, atraumatic. Eyes: Pupils equal round and reactive to light, extra-ocular motions intact. Lids and lashes normal. Conjunctiva and sclera are non-icteric and not injected. Cornea within normal limits. Periorbital areas with no swelling, redness, or edema. ENT: Nares patent. No nasal discharge, no septal abnormalities noted. Tympanic membranes are normal and external auditory canals are clear. Oropharynx with no redness, swelling, or masses, exudates, or evidence of obstruction, uvula midline. Mucous membranes moist. Neck: Trachea midline, no thyromegaly or masses palpated, and no cervical lymphadenopathy. Supple, full range of motion without nuchal rigidity, or vertebral point tenderness. No Meningismus. Chest/axilla: Normal chest wall appearance and motion. Nontender with no deformity. No lesions are appreciated. Cardiovascular: Regular rate and rhythm with a normal S1 and S2. No gallops, murmurs, or rubs. Normal PMI, no JVD. No pulse deficits. Abdomen/GI: Soft, non-tender, with normal bowel sounds. No distension or tympany. No guarding or rebound. No evidence of tenderness throughout. Back: No spinal tenderness. No costovertebral tenderness. Full range of motion. Skin: Warm, dry with normal turgor. Normal color with no rashes, no lesions, and no evidence of cellulitis. MS/ Extremity: Pulses equal, no cyanosis. Neurovascular intact. Full, normal range of motion. Neuro: Awake and alert, GCS 15, oriented to person, place, time, and situation. Cranial nerves II-XII grossly intact. Motor strength 5/5 in all extremities. Sensory grossly intact. Cerebellar exam normal. Normal gait. 14:53 Respiratory: the patient does not display signs of respiratory distress, Respirations: normal, Breath sounds: mild scattered coarseness noted. Vital Signs: 12:45 BP 130 / 79; Pulse 89; Resp 20; Temp 98.4; Pulse Ox 99% ; Weight 88.9 kg; Height 5 ft. sv 4 in. (162.56 cm); Pain 3/10; 14:15 BP 131 / 80; Pulse 84; Resp 17; Pulse Ox 100% on R/A; Pain 3/10; rb1 15:15 BP 133 / 78; Pulse 98; Resp 16; Temp 98.3(O); Pulse Ox 100% on R/A; Pain 0/10; rb1 12:45 Body Mass Index 33.64 (88.90 kg, 162.56 cm) sv MDM: 14:03 Patient medically screened. wa 14:54 Differential Diagnosis: Bronchitis Upper Respiratory Infection Viral Syndrome wa Pneumonia. Data reviewed: vital signs, nurses notes, lab test result(s), radiologic studies. Test interpretation: by ED physician or midlevel provider: UA nml. UPT neg. CXR nml. ED course: nebs. prednisone given. will d/c with same. 01/28 13:12 Order name: Urine Dipstick--Ancillary (enter results); Complete Time: 14:24 ss 01/28 13:12 Order name: Urine --Ancillary (enter results); Complete Time: 14:24 ss 01/28 12:45 Order name: Chest Pa And Lat (2 Views) XRAY; Complete Time: 14:24 sv Administered Medications: 14:34 Drug: Albuterol - atroVENT (3:1) (2.5 mg - 0.5 mg) 3 ml Route: Nebulizer; rb1 15:00 Follow up: Response: No adverse reaction; Marked relief of symptoms rb1 14:34 Drug: predniSONE 60 mg Route: PO; rb1 15:00 Follow up: Response: No adverse reaction rb1 Disposition: 01/28/19 14:56 Discharged to Home. Impression: Cough, bronchitis. - Condition is Stable. - Discharge Instructions: Acute Bronchitis, [id number]. - Prescriptions for Prednisone 20 mg Oral Tablet - take 2 tablets by ORAL route once daily for 4 days; 8 tablet. Albuterol Sulfate 90 mcg/actuation - inhale 1-2 puff by INHALATION route every 4-6 hours; 1 Inhaler. cetirizine 10 mg Oral tablet - take 1 tablet by ORAL route once daily; 10 tablet. - Work release form, Medication Reconciliation Form, Thank You Letter, Antibiotic Education, Prescription Opioid Use form. - Follow up: Wade Rueda MD; When: 2 - 3 days; Reason: Recheck today's complaints. - Problem is new. - Symptoms have improved. - Notes: take meddication as prescribed. do not smoke. see your doctor or return here immediately if you rapidly worsen Signatures: Dispatcher [employer] EDRoxana Quiñones RN RN Manasa Evans RN RN rb1 Cale Ferrari MD MD wa Corrections: (The following items were deleted from the chart) 15:17 14:56 01/28/2019 14:56 Discharged to Home. Impression: Cough; bronchitis. Condition is rb1 Stable. Forms are Work release form, Medication Reconciliation Form, Thank You Letter, Antibiotic Education, Prescription Opioid Use. Follow up: Wade Rueda; When: 2 - 3 days; Reason: Recheck today's complaints. Problem is new. Symptoms have improved. wa
[2019-01-28 15:32] VITALS: BP 130/79; TEMP 98.4; O2SAT 99
== END 2019-01-28 15:17 | disposition home or self-care (01) ==
LOC: ER 12:38
DX: J40 Bronchitis, not specified as acute or chronic (principal)
CPT/HCPCS: 71046; 81003; 81025; 94640; 99284; J7512

== ENCOUNTER 2019-09-06 01:56 | Emergency (ER) | payer SELFPAY ==
[2019-09-06] MEDS ORDERED: METHYLPREDNISOLONE 125 MG INJ ONE (03:59)
[2019-09-06] MEDS ORDERED: IPRATROPIUM BROM 0.5MG/2.5ML ONE (03:59)
[2019-09-06] MEDS ORDERED: ALBUTEROL 2.5 MG/3 ML NEB SOL ONE (04:00)
[2019-09-06] MEDS ORDERED: HYDROCODONE/CHLORPHEN 5 ML/OSYR ONE (04:00)
--- NOTE | 2019-09-06 04:13 | ER ---
Nurse's Notes [facility] Name: Sharon Bee Age: 29 yrs Sex: Female : 1990 Arrival Date: 09/06/2019 Time: 01:59 Bed 8 Private MD: Diagnosis: Asthmatic bronchitis Presentation: 09/05 02:29 Chief complaint: Patient states: "I was wondering if I could get a steroid shot or lp1 something, I have had this cough and congestion for 2 weeks and my chest is starting to hurt from the coughing"; patient states sore throat; denies fever. Coronavirus screen: Patient reports a cough. Patient reports shortness of breath or difficulty breathing. Patient denies measured and/or subjective temperature greater than 100.4F prior to today's visit. Patient denies travel on a cruise ship or to a country the [facility] currently lists as an affected area. Patient denies contact with known and/or suspected case of COVID-19. Ebola Screen: No symptoms or risks identified at this time. Risk Assessment: Do you want to hurt yourself or someone else? Patient reports no desire to harm self or others. Onset of symptoms was September 06, 2019. 02:29 Method Of Arrival: Ambulatory lp1 02:29 Acuity: MARZENA 3 lp1 02:32 Initial Sepsis Screen: Does the patient meet any 2 criteria? No. Patient's initial lp1 sepsis screen is negative. Does the patient have a suspected source of infection? No. Patient's initial sepsis screen is negative. 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 - Social history:: Smoking status: unknown Patient uses street drugs, marijuana. Screenin:34 Abuse screen: Denies threats or abuse. Denies injuries from another. Nutritional lp1 screening: No deficits noted. Tuberculosis screening: No symptoms or risk factors identified. Fall Risk None identified. Assessment: 02:48 General: Appears in no apparent distress. comfortable, Behavior is calm, cooperative, rr5 appropriate for age. Pain: Complains of pain in chest Pain radiates to back Pain currently is 4 out of 10 on a pain scale. Quality of pain is described as aching, Pain began gradually, Is intermittent. Neuro: Level of Consciousness is awake, alert, obeys commands, Oriented to person, place, time, situation. Cardiovascular: Capillary refill < 3 seconds Patient's skin is warm and dry. Respiratory: Reports cough that is pain with cough Airway is patent Respiratory effort is even, unlabored, Respiratory pattern is regular, symmetrical. GI: No signs and/or symptoms were reported involving the gastrointestinal system. : No signs and/or symptoms were reported regarding the genitourinary system. EENT: No signs and/or symptoms were reported regarding the EENT system. Derm: Skin is intact, is healthy with good turgor, Skin is pink, warm \\T\\ dry. Skin temperature is warm. Musculoskeletal: Circulation, motion, and sensation intact. Capillary refill < 3 seconds. 03:10 Reassessment: Patient appears in no apparent distress at this time. Patient and/or rr5 family updated on plan of care and expected duration. Pain level reassessed. Patient is alert, oriented x 3, equal unlabored respirations, skin warm/dry/pink. awaiting for results. 04:21 Reassessment: Patient appears in no apparent distress at this time. Patient is alert, rr5 oriented x 3, equal unlabored respirations, skin warm/dry/pink. discharge instruction given and explained without complaints made. awaiting for her ride home. patient received tussionex advised not to drive home. Patient states feeling better. Patient states symptoms have improved. Vital Signs: 02:32 BP 130 / 98; Pulse 71; Resp 18; Temp 98.1(O); Pulse Ox 99% on R/A; Weight 90.26 kg (R); lp1 Height 5 ft. 4 in. (162.56 cm); 03:58 BP 126 / 78; Pulse 79; Resp 20; Pulse Ox 98% ; rr5 04:21 BP 135 / 75; Pulse 80; Resp 19; Pulse Ox 98% ; rr5 02:32 Body Mass Index 34.16 (90.26 kg, 162.56 cm) lp1 ED Course: 01:59 Patient arrived in ED. ag3 02:31 Triage completed. lp1 02:31 Arm band placed on right wrist. lp1 02:34 Flu and/or RSV swab sent to lab. Strep swab sent to lab. lp1 02:48 Bebeto Luevano, RN is Primary Nurse. rr5 02:50 Patient has correct armband on for positive identification. Bed in low position. Call rr5 light in reach. Pulse ox on. NIBP on. 02:59 Dejuan Li MD is Attending Physician. pkl 03:06 Chest Pa And Lat (2 Views) XRAY In Process Unspecified. EDMS 03:58 Initial Neb Treatment Given as ordered Patient was instructed and evaluated on rr5 procedure. 04:21 No provider procedures requiring assistance completed. Patient did not have IV access rr5 during this emergency room visit. Administered Medications: 03:55 Drug: SOLU-Medrol 125 mg Route: IM; Site: right deltoid; rr5 03:58 Drug: Albuterol - atroVENT (3:1) (2.5 mg - 0.5 mg) 3 ml Route: Nebulizer; rr5 03:58 Drug: Tussionex Pennkinetic ER 5 ml Route: PO; rr5 Outcome: 04:12 Discharge ordered by . pkl 04:21 Discharged to home ambulatory. rr5 04:21 Condition: stable 04:21 Discharge instructions given to patient, Instructed on discharge instructions, follow up and referral plans. medication usage, Demonstrated understanding of instructions, follow-up care, medications, Prescriptions given X 4. 05:23 Patient left the ED. lp1 Signatures: Dispatcher [employer] EDMT Dejuan Li MD MD pkl Renee Duque RN RN lp1 Kassie Malagon 3 Bebeto Luevano, RN RN rr5
--- NOTE | 2019-09-06 04:13 | EDPHYS ---
Physician Documentation [facility] Name: Sharon Bee Age: 29 yrs Sex: Female : 1990 Arrival Date: 09/06/2019 Time: 01:59 Bed 8 Private MD: ED Physician Dejuan Li HPI: 09/05 03:23 This 29 yrs old Female presents to ER via Ambulatory with complaints of Cough. pkl 03:23 The patient or guardian reports cough, described as moderate, with no sputum. Onset: pkl The symptoms/episode began/occurred 2 week(s) ago. Associated signs and symptoms: Pertinent positives: wheezing. 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 - Social history:: Smoking status: unknown Patient uses street drugs, marijuana. ROS: 03:23 Eyes: Negative for injury, pain, redness, and discharge, ENT: Negative for injury, pkl pain, and discharge, Neck: Negative for injury, pain, and swelling, Cardiovascular: Negative for chest pain, palpitations, and edema. 03:23 Respiratory: Positive for cough, with no reported sputum, wheezing. 03:23 Abdomen/GI: Negative for abdominal pain, nausea, vomiting, and diarrhea. 03:23 Back: Negative for acute changes. 03:23 : Negative for urinary symptoms. 03:23 MS/extremity: Negative for acute changes. 03:23 Skin: Negative for rash. 03:23 Neuro: Negative for altered mental status. Exam: 03:23 Head/Face: Normocephalic, atraumatic. Eyes: Pupils equal round and reactive to light, pkl extra-ocular motions intact. Lids and lashes normal. Conjunctiva and sclera are non-icteric and not injected. Cornea within normal limits. Periorbital areas with no swelling, redness, or edema. ENT: Nares patent. No nasal discharge, no septal abnormalities noted. Tympanic membranes are normal and external auditory canals are clear. Oropharynx with no redness, swelling, or masses, exudates, or evidence of obstruction, uvula midline. Mucous membranes moist. Neck: Trachea midline, no thyromegaly or masses palpated, and no cervical lymphadenopathy. Supple, full range of motion without nuchal rigidity, or vertebral point tenderness. No Meningismus. Chest/axilla: Normal chest wall appearance and motion. Nontender with no deformity. No lesions are appreciated. Cardiovascular: Regular rate and rhythm with a normal S1 and S2. No gallops, murmurs, or rubs. Normal PMI, no JVD. No pulse deficits. 03:23 Respiratory: the patient does not display signs of respiratory distress, Respirations: normal, Breath sounds: bronchial sounds, that are moderate, are scattered, rhonchi, that are moderate, are scattered. 03:23 Abdomen/GI: Bowel sounds: normal, Palpation: abdomen is soft and non-tender. 03:23 Back: Exam negative for acute changes. 03:23 : Exam negative for acute changes. 03:23 Musculoskeletal/extremity: Exam is negative for acute changes. 03:23 Skin: Exam negative for rash. 03:23 Neuro: Orientation: is normal, Mentation: is normal, Cranial nerves: grossly normal, Motor: is normal. Vital Signs: 02:32 BP 130 / 98; Pulse 71; Resp 18; Temp 98.1(O); Pulse Ox 99% on R/A; Weight 90.26 kg (R); lp1 Height 5 ft. 4 in. (162.56 cm); 03:58 BP 126 / 78; Pulse 79; Resp 20; Pulse Ox 98% ; rr5 04:21 BP 135 / 75; Pulse 80; Resp 19; Pulse Ox 98% ; rr5 02:32 Body Mass Index 34.16 (90.26 kg, 162.56 cm) lp1 MDM: 02:59 Patient medically screened. pkl 04:10 Data reviewed: vital signs, nurses notes, lab test result(s), radiologic studies, plain pkl films. ED course: Patient feeling much better. Advised to follow up with PCP next week. Patient understood instruction. 09/05 02:32 Order name: Flu; Complete Time: 03:22 lp1 09/05 02:32 Order name: Strep; Complete Time: 03:22 lp1 09/05 02:32 Order name: Chest Pa And Lat (2 Views) XRAY lp1 09/05 03:17 Order name: Throat Culture EDMS Administered Medications: 03:55 Drug: SOLU-Medrol 125 mg Route: IM; Site: right deltoid; rr5 03:58 Drug: Albuterol - atroVENT (3:1) (2.5 mg - 0.5 mg) 3 ml Route: Nebulizer; rr5 03:58 Drug: Tussionex Pennkinetic ER 5 ml Route: PO; rr5 Disposition: 09/06/19 04:12 Discharged to Home. Impression: Asthmatic bronchitis. - Condition is Stable. - Prescriptions for Prednisone 20 mg Oral Tablet - take 1 tablet by ORAL route once daily for 5 days; 5 tablet. Zithromax Z- Juancarlos 250 mg Oral Tablet - take 1 tablet by ORAL route as directed for 5 days Day 1 - take two (2) tablets one time. Day 2, 3, 4 , 5 take one (1) tablet once daily.; 6 tablet. Albuterol Sulfate 90 mcg/actuation - inhale 1-2 puff by INHALATION route every 4-6 hours; 1 Inhaler. Guaifenesin AC 10- 100 mg/5 mL Oral Liquid - take 10 milliliters by ORAL route every 8 hours As needed; 120 milliliter. - Medication Reconciliation Form, Thank You Letter, Antibiotic Education, Prescription Opioid Use form. - Follow up: Private Physician; When: 2 - 3 days; Reason: Re-evaluation by your physician. - Problem is new. - Symptoms have improved. Signatures: Dispatcher [employer] EDAR Dejuan Li MD MD pkl Renee Duque RN RN lp1 Bebeto Luevano RN RN rr5 Corrections: (The following items were deleted from the chart) 05:23 04:12 09/06/2019 04:12 Discharged to Home. Impression: Asthmatic bronchitis. Condition lp1 is Stable. Forms are Medication Reconciliation Form, Thank You Letter, Antibiotic Education, Prescription Opioid Use. Follow up: Private Physician; When: 2 - 3 days; Reason: Re-evaluation by your physician. Problem is new. Symptoms have improved. pkl
[2019-09-06 05:31] VITALS: TEMP 98.1
[2019-09-06 05:32] VITALS: O2SAT 98
[2019-09-06 05:34] VITALS: BP 135/75
--- NOTE | 2019-09-06 08:39 | RAD REPORT ---
EXAM DESCRIPTION: RAD - Chest Pa And Lat (2 Views) - 09/06/2019 3:07 am CLINICAL HISTORY: COUGH COMPARISON: Chest two views December 2018 TECHNIQUE: Frontal and lateral views of the chest were obtained. FINDINGS: The lungs are clear. Lung parenchymal pattern matches the prior study. Heart size is norm al and central vasculature is within normal limits. No pleural effusion or pneumothorax seen. No ac paco bony finding noted. No aortic abnormality. No significant change from comparison. IMPRESSION: No acute cardiopulmonary process.
== END 2019-09-06 05:23 | disposition home or self-care (01) ==
LOC: ER 01:56
DX: J45.909 Unspecified asthma, uncomplicated (principal); R01.1 Cardiac murmur, unspecified
CPT/HCPCS: 71046; 87070; 87081; 87804; 94640; 96372; 99284; J2930

== ENCOUNTER 2020-06-04 12:04 | Emergency (ER) | payer SELFPAY ==
--- OUTSIDE RECORDS SUMMARY | 2020-06-04 12:07 | XMS REPORT | Continuity of Care Document ---
:1990 Author Organization [facility] t Address [address] [place] [address] Care Team Providers Name Role Phone [place] DO Attending Clinician Doctor Unassigned, Name Attending Clinician Unavailable Problems This patient has no known problems. Allergies, Adverse Reactions, Alerts This patient has no known allergies or adverse reactions. Medications This patient has no known medications. Procedures This patient has no known procedures. Encounters Start End Encounter Admission Attending Care Care Encounter Source Date/Time Date/Time Type Type Clinicians Facility Department ID 2020-04-22 2020-04-22 Emergency MEG Obregon [id number] 08:09:00 11:33:00 Jimbo [place] [id number] [place] [id number] [place] [id number] 2020-04-22 2020-04-22 Orders Doctor [place] [id number] 00:00:00 00:00:00 Only UnassignedCHANEL [id number] [facility] [id number] 2019-12-15 2019-12-15 Letter Doctor [place] [id number] 00:00:00 00:00:00 (Out) UnassignedCHANEL [id number] [facility] [id number] Results This patient has no known results.
[2020-06-04] MEDS ORDERED: HYDROCODONE/APAP 7.5/325 MG TAB ONE (13:50)
[2020-06-04] MEDS ORDERED: LIDOCAINE 1% MPF 5 ML VIAL ONE (14:05)
[2020-06-04] MEDS ORDERED: BUPIVACAINE 0.5% PF 10 ML VIAL ONE (14:05)
--- NOTE | 2020-06-04 14:42 | RAD REPORT ---
EXAM DESCRIPTION: RAD - Finger-Thumb Right - 06/04/2020 2:23 pm CLINICAL HISTORY: Thumb pain and swelling FINDINGS: No fracture or dislocation. No bone or joint abnormality visualized
[2020-06-04] MEDS ORDERED: ONDANSETRON 4 MG (ODT) TAB ONE (15:04)
--- NOTE | 2020-06-04 15:20 | ER ---
Nurse's Notes [facility] Name: Sharon Bee Age: 29 yrs Sex: Female : 1990 Arrival Date: 06/04/2020 Time: 12:06 Bed 2 Private MD: Diagnosis: Cellulitis of right finger-right thumb Presentation: 06/04 12:23 Chief complaint: Patient states: "I woke up with my right thumb swelling and really jd3 hurting. no recent injury.". Coronavirus screen: At this time, the client does not indicate any symptoms associated with coronavirus-19. Ebola Screen: Patient negative for fever greater than or equal to 101.5 degrees Fahrenheit, and additional compatible Ebola Virus Disease symptoms. Initial Sepsis Screen: Does the patient meet any 2 criteria? No. Patient's initial sepsis screen is negative. Does the patient have a suspected source of infection? No. Patient's initial sepsis screen is negative. Risk Assessment: Do you want to hurt yourself or someone else? Patient reports no desire to harm self or others. Onset of symptoms was June 04, 2020. 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 - Social history:: Smoking status: Patient reports the use of cigarette tobacco products, denies chronic smoking, but will smoke occasionally. Screenin:05 Abuse screen: Denies threats or abuse. Denies injuries from another. Nutritional ca1 screening: No deficits noted. Tuberculosis screening: No symptoms or risk factors identified. Fall Risk None identified. Assessment: 13:05 General: Appears in no apparent distress. comfortable, Behavior is calm, cooperative, ca1 appropriate for age. Pain: Complains of pain in dorsal aspect of distal phalanx of right thumb, dorsal aspect of proximal phalanx of right thumb, palmar aspect of distal phalanx of right thumb, palmar aspect of proximal phalanx of right thumb and right thumbnail Pain currently is .9 out of 10 on a pain scale. Pain began 1 day ago. Neuro: Level of Consciousness is awake, alert, obeys commands, Oriented to person, place, time, situation. Derm: Skin is intact, is healthy with good turgor, Skin is pink, warm \\T\\ dry. Musculoskeletal: Circulation, motion, and sensation intact. Capillary refill < 3 seconds, Range of motion: limited in IP of right thumb Swelling present in dorsal aspect of distal phalanx of right thumb and palmar aspect of distal phalanx of right thumb. 13:37 Reassessment: Patient appears in no apparent distress at this time. Patient and/or ca1 family updated on plan of care and expected duration. Pain level reassessed. Patient is alert, oriented x 3, equal unlabored respirations, skin warm/dry/pink. 14:30 Reassessment: Patient appears in no apparent distress at this time. Patient and/or ca1 family updated on plan of care and expected duration. Pain level reassessed. Patient is alert, oriented x 3, equal unlabored respirations, skin warm/dry/pink. 15:30 Reassessment: Patient appears in no apparent distress at this time. Patient and/or ca1 family updated on plan of care and expected duration. Pain level reassessed. Patient is alert, oriented x 3, equal unlabored respirations, skin warm/dry/pink. Vital Signs: 12:24 BP 134 / 98; Pulse 116; Resp 17 S; Temp 97.6(TE); Pulse Ox 100% on R/A; Weight 90.72 kg jd3 (R); Height 5 ft. 4 in. (162.56 cm) (R); Pain 8/10; 13:37 BP 127 / 82; Pulse 87; Resp 16 S; Pulse Ox 100% on R/A; ca1 14:30 BP 113 / 73; Pulse 99; Resp 16 S; Pulse Ox 100% on R/A; ca1 15:30 BP 126 / 89; Pulse 89; Resp 16 S; Pulse Ox 100% on R/A; ca1 12:24 Body Mass Index 34.33 (90.72 kg, 162.56 cm) jd3 ED Course: 12:06 Patient arrived in ED. as 12:19 Arsalan Collins MD is Attending Physician. kdr 12:23 Triage completed. jd3 12:26 Arm band placed on. jd3 13:05 Patient has correct armband on for positive identification. Bed in low position. Call ca1 light in reach. Side rails up X 1. Pulse ox on. NIBP on. 13:14 Doug Mendoza PA is PHCP. cp 13:16 Liz Farrar, RN is Primary Nurse. ca1 14:23 XRAY Finger-Thumb RIGHT In Process Unspecified. EDMS 15:15 Assist provider with I \\T\\ D: of an abscess on right thumb Set up I\\T\\D tray. Performed by ca 1 Doug WILSON Dressing with 4X4s, tape Patient tolerated well. Patient did not have IV access during this emergency room visit. 15:19 Francis Ochoa MD is Referral Physician. cp Administered Medications: 13:35 Drug: Hydrocodone-Acetaminophen (7.5 mg-325 mg) 1 tabs {Note: rass 0.} Route: PO; ca1 15:43 Follow up: Response: No adverse reaction; Pain is decreased; RASS: Alert and Calm (0) ca1 14:49 Drug: Lidocaine (1 %) 10 ml {Note: by PA. Tatiana} Volume: 20 ml; Route: ca1 Infiltration; 14:49 Drug: Marcaine (0.5 %) 10 ml {Note: by STEVE Simpson.} Volume: 10 ml; Route: ca1 Infiltration; 14:49 Drug: Ondansetron (Zofran) 4 mg Route: PO; ca1 15:44 Follow up: Response: No adverse reaction; Nausea is decreased ca1 15:43 Drug: Bactrim (160 mg-800 mg (DS) 1 tablet Route: PO; ca1 15:43 Follow up: Response: Medication administered at discharge. ca1 15:43 Drug: Doxycycline 100 mg Route: PO; ca1 15:43 Follow up: Response: Medication administered at discharge. ca1 Outcome: 15:20 Discharge ordered by . cp 15:50 Discharged to home ambulatory. ca1 15:50 Condition: stable 15:50 Discharge instructions given to patient, Instructed on discharge instructions, follow up and referral plans. no drinking with medication, no driving heavy equipment, medication usage, wound care, Demonstrated understanding of instructions, follow-up care, medications, wound care, Prescriptions given X x 5 15:51 Patient left the ED. ca1 Signatures: Dispatcher [employer] EDMS Arsalan Collins MD MD kdr Martinez, Amelia as Page, Corey, PA PA cp Davies, Jonathon, RN RN jd3 Liz Farrar RN RN ca1 Corrections: (The following items were deleted from the chart) 12:27 12:24 Pulse 116bpm; Resp 17bpm; Spontaneous; Pulse Ox 100% RA; Temp 97.6F Temporal; jd3 90.72 kg Reported; Height 5 ft. 4 in. Reported; BMI: 34.3; Pain 8/10; jd3 13:38 13:37 BP 127 / 82; Pulse 67bpm; Resp 16bpm; Spontaneous; Pulse Ox 100% RA; ca1 ca1
--- NOTE | 2020-06-04 15:21 | EDPHYS ---
Physician Documentation [facility] Name: Sharon Bee Age: 29 yrs Sex: Female : 1990 Arrival Date: 06/04/2020 Time: 12:06 Bed 2 Private MD: ED Physician Arsalan Collins HPI: 06/04 13:30 This 29 yrs old Female presents to ER via Ambulatory with complaints of finger cp swelling. 13:30 The patient or guardian reports pain, swelling, tenderness. The complaints affect the cp nelson side distal phalanx right thumb. Context: resulted from an unknown cause. Onset: The symptoms/episode began/occurred this morning. Associated signs and symptoms: Pertinent negatives: cyanosis distally, decreased sensation distally, known injury. 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 - Social history:: Smoking status: Patient reports the use of cigarette tobacco products, denies chronic smoking, but will smoke occasionally. ROS: 13:40 Constitutional: Negative for body aches, chills, fever, poor PO intake. cp 13:40 MS/extremity: Positive for pain, swelling, tenderness, of the palmar aspect of distal cp phalanx of right thumb, Negative for injury or acute deformity, paresthesias. 13:40 Skin: Negative for rash. 13:40 All other systems are negative. Exam: 13:45 Constitutional: The patient appears in no acute distress, alert, awake, non-toxic, well cp developed, well nourished, uncomfortable. 13:45 Musculoskeletal/extremity: Extremities: grossly normal except: noted in the palmar cp aspect of distal phalanx of right thumb: erythema, pain, swelling, tenderness, There is no evidence of obvious abscess, Perfusion: the extremity is normally perfused throughout, Severe pain noted. 13:45 Skin: cellulitis, that is moderate, on the palmar aspect of distal phalanx of right thumb. Vital Signs: 12:24 BP 134 / 98; Pulse 116; Resp 17 S; Temp 97.6(TE); Pulse Ox 100% on R/A; Weight 90.72 kg jd3 (R); Height 5 ft. 4 in. (162.56 cm) (R); Pain 8/10; 13:37 BP 127 / 82; Pulse 87; Resp 16 S; Pulse Ox 100% on R/A; ca1 14:30 BP 113 / 73; Pulse 99; Resp 16 S; Pulse Ox 100% on R/A; ca1 15:30 BP 126 / 89; Pulse 89; Resp 16 S; Pulse Ox 100% on R/A; ca1 12:24 Body Mass Index 34.33 (90.72 kg, 162.56 cm) jd3 MDM: 13:14 Patient medically screened. cp 15:17 ED course: Review of [place] prescription monitor website shows narcotic score of 040, cp sedative score of 020 and overdose risk score of 190. 15:20 Data reviewed: vital signs, nurses notes, radiologic studies, plain films. cp 15:20 Test interpretation: by ED physician or midlevel provider: xrays of right thumb cp negative for foreign body and/or fracture. Counseling: I had a detailed discussion with the patient and/or guardian regarding: the historical points, exam findings, and any diagnostic results supporting the discharge/admit diagnosis, radiology results, to return to the emergency department if symptoms worsen or persist or if there are any questions or concerns that arise at home. Response to treatment: the patient's symptoms have markedly improved after treatment. ED course: VSS. Pain improved with meds. Digital block performed using 8 ccs mixture 1% lidocaine w/o epi and 0.5% marcaine. Area cleaned with alcohol and betadine, using 21 gauge needle, area pierced with resultant bloody drainage. Will discharge to home with RXs for oral antibiotics and pain meds. 06/04 13:25 Order name: XRAY Finger-Thumb RIGHT; Complete Time: 14:43 cp Administered Medications: 13:35 Drug: Hydrocodone-Acetaminophen (7.5 mg-325 mg) 1 tabs {Note: rass 0.} Route: PO; ca1 15:43 Follow up: Response: No adverse reaction; Pain is decreased; RASS: Alert and Calm (0) ca1 14:49 Drug: Lidocaine (1 %) 10 ml {Note: by STEVE Simpson.} Volume: 20 ml; Route: ca1 Infiltration; 14:49 Drug: Marcaine (0.5 %) 10 ml {Note: by PA. Tatiana} Volume: 10 ml; Route: ca1 Infiltration; 14:49 Drug: Ondansetron (Zofran) 4 mg Route: PO; ca1 15:44 Follow up: Response: No adverse reaction; Nausea is decreased ca1 15:43 Drug: Bactrim (160 mg-800 mg (DS) 1 tablet Route: PO; ca1 15:43 Follow up: Response: Medication administered at discharge. ca1 15:43 Drug: Doxycycline 100 mg Route: PO; ca1 15:43 Follow up: Response: Medication administered at discharge. ca1 Disposition: 16:00 Chart complete. cp 16:50 Co-signature as Attending Physician, Arsalan Collins MD I agree with the assessment and kdr plan of care. Disposition: 06/04/20 15:20 Discharged to Home. Impression: Cellulitis of right finger - right thumb. - Condition is Stable. - Discharge Instructions: Cellulitis, Adult. - Prescriptions for Doxycycline Hyclate 100 mg Oral Tablet - take 1 tablet by ORAL route every 12 hours; 20 tablet. Bactrim DS 800- 160 mg Oral Tablet - take 1 tablet by ORAL route every 12 hours for 10 days; 20 tablet. Ibuprofen 800 mg Oral Tablet - take 1 tablet by ORAL route every 8 hours As needed take with food; 30 tablet. Tylenol- Codeine #3 300-30 mg Oral Tablet - take 2 tablets by ORAL route every 8-12 hours As needed; 15 tablet. Zofran 4 mg Oral Tablet - take 1 tablet by ORAL route every 12 hours As needed; 20 tablet. - Medication Reconciliation Form, Thank You Letter, Antibiotic Education, Prescription Opioid Use form. - Follow up: Francis Ochoa MD; When: 2 - 3 days; Reason: Worsening of condition. - Problem is new. - Symptoms have improved. Signatures: Dispatcher [employer] EDMS Arsalan Collins MD MD kdr Page, Corey, PA PA cp Davies, Jonathon, RN RN jd3 Liz Farrar RN RN ca1 Corrections: (The following items were deleted from the chart) 15:51 15:20 06/04/2020 15:20 Discharged to Home. Impression: Cellulitis of right finger - ca1 right thumb. Condition is Stable. Forms are Medication Reconciliation Form, Thank You Letter, Antibiotic Education, Prescription Opioid Use. Follow up: Francis Ochoa; When: 2 - 3 days; Reason: Worsening of condition. Problem is new. Symptoms have improved. cp
[2020-06-04] MEDS ORDERED: DOXYCYCLINE 100 MG CAP PO ONE (15:59)
[2020-06-04] MEDS ORDERED: SMZ./TMP. 800/160 MG TABLET ONE (15:59)
[2020-06-04 20:45] VITALS: TEMP 97.6; O2SAT 100
[2020-06-04 20:48] VITALS: BP 126/89
== END 2020-06-04 15:51 | disposition home or self-care (01) ==
LOC: ER 12:04
DX: L03.011 Cellulitis of right finger (principal); F17.210 Nicotine dependence, cigarettes, uncomplicated
CPT/HCPCS: 99284

== ENCOUNTER 2021-04-13 06:32 | Emergency (ER) | payer SELFPAY ==
--- OUTSIDE RECORDS SUMMARY | 2021-04-13 06:34 | XMS REPORT | Continuity of Care Document ---
:1990 Author Organization [facility] t Address [address] [place] [address] Care Team Providers Name Role Phone Ellen Iqbal Attending Clinician ELLEN MIDDLETON Attending Clinician Unavailable Doctor Unassigned, Name Attending Clinician Unavailable Singer VILLARREAL Attending Clinician Payers Payer Name Policy Type Policy Number Effective Date Expiration Date S yogi [facility] - [id number] 2013 00:00:00 OUT OF STATE Problems Condition Condition Condition Status Onset Resolution Last Treating Co mments Source Name Details Category Date Date Treatment Clinician Date Uterine Uterine Disease Active Univers size-date size-date 04-14 ity [place] Medical antepartum antepartum Br anch Nausea Nausea Disease Active Overview: Univer s without without 04-14 Formattin ity o f vomiting vomiting 00:00: g of this Bill as 00 note Medical might be Branch different from the original. 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 Marijuana . Positive drug screen in 2010 for THC Hepatitis Hepatitis Disease Active 2012-04 Uni vers C carrier C carrier 2-23 ity of 00:00: [place] 00 Medical Branch Generalize Generalize Disease Active 2012-04 U nivers d anxiety d anxiety 05-25 ity of disorder disorder 00:00: [address] High-risk High-risk Disease Active 2012-04 Overview: Univers 05-25 Formattin i ty of 00:00: g of this [place] 00 note Medical might be Branch different from the original. 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 SARS-CoV-2 [facility] (event) Branch Tobacco use and 2020-11-04 2020-11-04 Never used Universit y of exposure 00:00:00 00:00:00 [facility] Alcohol intake 2020-11-04 2020-11-04 Current University of 00:00:00 00:00:00 non-drinker of [facility] alcohol Branch (finding) Tobacco Comment 2013-03-24 2013-03-24 states she only Univ ersity of 00:00:00 00:00:00 smoked once a [place] Medic al week ago and has Branch stopped. states only time she smoked Sex Ass[birth year] At [birth year] Universit y of 00:00:00 00:00:00 [facility] Smoking Status Start Date Stop Date Source Former smoker 2020-11-04 00:00:00 2020-11-04 00:00:00 Universi of [facility] Medications Ordered Filled Start Stop Current Ordering Indication Dosage Frequency Signature Comments Components Source Medication Medication Date Date Medication? Clinician (SIG) Name Name amoxicillin 2020- No 500mg Take 500 Univers (TRIMOX) 8- 08-05 mg by ity of 500 mg 02:18: 00:00 mouth 3 [place] capsule 27 :00 (three) Medical times Branch daily. ALPRAZolam 2020- No .5mg Take 0.5 Un deangelo (XANAX) 0.5 - 08-05 mg by ity of mg tablet 02:18: 00:00 mouth 2 [place] 21 :00 (two) Medical times Branch daily. acetaminoph 2020- No 650mg Take 650 Univers en 806 08-05 mg by ity of (TYLENOL) 02:18: 00:00 mouth [place] 325 mg 18 :00 every 6 Medical tablet (six) Branch hours as needed. ketorolac 2020- No 30mg 30 mg, Unive rs (TORADOL) 04-22 Slow IV ity of injection 18:00: 17:59 Push, Q6H, [place] 30 mg 00 :00 4 doses, Medical First dose Branch on Basia 04/22/20 at 1200, Last dose on Sun04/23/20 at 0600, Routine cefTRIAXone 2020- No 2000mg 2,000 mg, Univers (ROCEPHIN) 04-22 IV ity of 2,000 mg in 17:15: 16:56 Piggyback, [place] NaCl 0.9% 00 :00 ONCE, 1 Medical (NS) 100 mL dose, [facility] MINI-BAG 04/22/20 at 1115, 100 mL
Reas on for Anti-Infec tive: Empiric Therapy for Suspected Infection< br>Empiric Therapy Site: Urine
D uration of therapy: 72 hours NaCl 0.9% 2020- No 1000mL at 999 Uni vers (NS) bolus 04-22 mL/hr, ity of infusion 15:30: 16:00 1,000 mL, Bill as 1,000 mL 00 :00 IV Medical Piggyback, [place] ONCE, 1 dose, Basia 04/22/20 at 0930, STAT ondansetron 2020- No 4mg 4 mg, Slow Univers (ZOFRAN 04-22 IV Push, ity of (PF)) 14:30: 14:25 ONCE, 1 [place] injection 4 00 :00 dose, Basia Med ical mg 04/22/20 at Branch 0830, Routine ondansetron 2020- Yes [id number] 4mg Take 1 Univers 4 mg -21 tablet by ity of disintegrat 00:00: mouth [place] ing tablet 00 every 8 Medica l (eight) Branch hours as needed for Nausea and Vomiting (N/V). ondansetron 2020- Yes [id number] 4mg Take 1 Univers 4 mg 1-21 tablet by ity of disintegrat 00:00: mouth [place] ing tablet 00 every 8 Medica l (eight) Branch hours as needed for Nausea and Vomiting (N/V). ondansetron Yes [id number] 4mg Take 1 Univers 4 mg 1-21 tablet by ity of disintegrat 00:00: mouth [place] ing tablet 00 every 8 Medica l (eight) Branch hours as needed for Nausea and Vomiting (N/V). ondansetron 2020- No [id number] 4mg Take 1 Univers 4 mg 1-21 08-05 tablet by ity of disintegrat 00:00: 00:00 [place] tablet 00 :00 every 8 Medica l (eight) Branch hours as needed for Nausea and Vomiting (N/V). sulfamethox 2020- No [id number] 1{tbl} Take 1 Univers azole-trime 1-21 02-05 tablet by it y of thoprim 00:00: 05:59 mouth 2 [place] 800-160 mg 00 :00 (two) Medical per tablet times Branch daily for 14 days. acetaminoph Yes 650mg Take 650 U nivers en 1-16 mg by ity of (TYLENOL) 19:13: mouth [place] 325 mg 48 every 6 Medical tablet (six) Branch hours as needed. acetaminoph Yes 650mg Take 650 U nivers en 1-16 mg by ity of (TYLENOL) 19:13: mouth [place] 325 mg 48 every 6 Medical tablet (six) Branch hours as needed. acetaminoph Yes 650mg Take 650 U nivers en 1-16 mg by ity of (TYLENOL) 19:13: mouth [place] 325 mg 48 every 6 Medical tablet (six) Branch hours as needed. acetaminoph Yes 650mg Take 650 U nivers en 1-16 mg by ity of (TYLENOL) 19:13: mouth [place] 325 mg 48 every 6 Medical tablet (six) Branch hours as needed. acetaminoph Yes 650mg Take 650 U nivers en 1-16 mg by ity of (TYLENOL) 19:13: mouth [place] 325 mg 48 every 6 Medical tablet (six) Branch hours as needed. ALPRAZolam 2012-04 Yes .5mg Take 0.5 Uni vers (XANAX) 0.5 2-23 mg by ity of mg tablet 16:14: mouth 2 [place] 46 (two) Medical times Branch daily. ALPRAZolam 2012-04 Yes .5mg Take 0.5 Uni vers (XANAX) 0.5 2-23 mg by ity of mg tablet 16:14: mouth 2 [place] 46 (two) Medical times Branch daily. ALPRAZolam 2012-04 Yes .5mg Take 0.5 Uni vers (XANAX) 0.5 2-23 mg by ity of mg tablet 16:14: mouth 2 [place] 46 (two) Medical times Branch daily. ALPRAZolam 2012-04 Yes .5mg Take 0.5 Uni vers (XANAX) 0.5 2-23 mg by ity of mg tablet 16:14: mouth 2 [place] 46 (two) Medical times Branch daily. ALPRAZolam 2012-04 Yes .5mg Take 0.5 Uni vers (XANAX) 0.5 2-23 mg by ity of mg tablet 16:14: mouth 2 [place] 46 (two) Medical times Branch daily. amoxicillin 2012-04 Yes 500mg Take 500 U nivers (TRIMOX) 2-23 mg by ity of 500 mg 16:13: mouth 3 [place] capsule 24 (three) Medical times Branch daily. amoxicillin 2012-04 Yes 500mg Take 500 U nivers (TRIMOX) 2-23 mg by ity of 500 mg 16:13: mouth 3 [place] capsule 24 (three) Medical times Branch daily. amoxicillin 2012-04 Yes 500mg Take 500 U nivers (TRIMOX) 2-23 mg by ity of 500 mg 16:13: mouth 3 [place] capsule 24 (three) Medical times Branch daily. amoxicillin 2012-04 Yes 500mg Take 500 U nivers (TRIMOX) 2-23 mg by ity of 500 mg 16:13: mouth 3 [place] capsule 24 (three) Medical times Branch daily. amoxicillin 2012-04 Yes 500mg Take 500 U nivers (TRIMOX) 2-23 mg by ity of 500 mg 16:13: mouth 3 [place] capsule 24 (three) Medical times Branch daily. 2012-04 Yes [id number] 1{tbl} Take 1 Tab Univers multivitami 2-23 by mouth ity of n ( 00:00: [place]. [place] VITAMIN) 00 Medical tablet Branch 2012-04 Yes [id number] 1{tbl} Take 1 Tab Univers multivitami 2-23 by mouth ity of n ( 00:00: daily. [place] VITAMIN) 00 Medical tablet Branch 2012-04 Yes [id number] 1{tbl} Take 1 Tab Univers multivitami 2-23 by mouth ity of n ( 00:00: daily. [place] VITAMIN) 00 Medical tablet Branch 2012-04 Yes [id number] 1{tbl} Take 1 Tab Univers multivitami 2-23 by mouth ity of n ( 00:00: daily. [place] VITAMIN) 00 Medical tablet Branch 2012-04 Yes [id number] 1{tbl} Take 1 Tab Univers multivitami 2-23 by mouth ity of n ( 00:00: daily. [place] VITAMIN) 00 Medical tablet [place] 2012-041- No [id number] 1{tbl} Take 1 Tab Univers multivitami 2-23 08-05 by mouth ity of n ( 00:00: 00:00 daily. Bill as VITAMIN) 00 :00 [facility] Immunizations Ordered Filled Immunization Date Status Comments [facility] e Immunization Name Name Rubella 2011-03-11 Completed University of 00:00:00 [facility] Varicella 2011-03-11 Completed University of (varivax)(chicken 00:00:00 [place] edical pox) Branch Rubella 2011-03-11 Completed University of 00:00:00 [facility] Varicella 2011-03-11 Completed University of (varivax)(chicken 00:00:00 [place] M edical pox) Branch Rubella 2011-03-11 Completed University of 00:00:00 [facility] Varicella 2011-03-11 Completed University of (varivax)(chicken 00:00:00 [place] M edical pox) Branch Rubella 2011-03-11 Completed University of 00:00:00 [facility] Varicella 2011-03-11 Completed University of (varivax)(chicken 00:00:00 [place] M edical pox) Branch Rubella 2011-03-11 Completed University of 00:00:00 [facility] Varicella 2011-03-11 Completed University of (varivax)(chicken 00:00:00 [place] M edical pox) Branch Rubella 2011-03-11 Completed University of 00:00:00 [facility] Varicella 2011-03-11 Completed University of (varivax)(chicken 00:00:00 [place] M edical pox) Branch TDAP 2011-01-22 Completed University of 00:00:00 [place] [facility] TDAP 2011-01-22 Completed University of 00:00:00 [place] [facility] TDAP 2011-01-22 Completed University of 00:00:00 [place] [facility] TDAP 2011-01-22 Completed University of 00:00:00 [place] [facility] TDAP 2011-01-22 Completed University of 00:00:00 [place] [facility] TDAP 2011-01-22 Completed University of 00:00:00 [facility] Vital Signs Vital Name Observation Time Observation Value Comments Source Systolic blood 2020-11-05 05:50:00 136 mm[Hg] Univer sity of pressure [facility] Diastolic blood 2020-11-05 05:50:00 88 mm[Hg] Unive rsity of [facility] Heart rate 2020-11-05 05:50:00 85 /min [facility] Respiratory rate 2020-11-05 05:50:00 20 /min [facility] Oxygen saturation in 2020-11-05 05:50:00 100 /min [facility] Arterial blood by [facility] Pulse oximetry [place] Body temperature 2020-11-05 02:15:00 37.39 Daja [facility] Body height 2020-11-05 02:15:00 162.6 cm [facility] Body weight 2020-11-05 02:15:00 85.276 kg [facility] BMI 2020-11-05 02:15:00 32.27 kg/m2 [facility] Systolic blood 2020-11-03 20:53:00 134 mm[Hg] Univer sity of pressure [facility] Diastolic blood 2020-11-03 20:53:00 70 mm[Hg] Unive rsity of [facility] Heart rate 2020-11-03 20:53:00 91 /min [facility] Body temperature 2020-11-03 20:53:00 37.22 Daja [facility] [place] [facility] Respiratory rate 2020-11-03 20:53:00 14 /min [facility] Body weight 2020-11-03 20:53:00 90.719 kg Universi ty of [place] [facility] BMI 2020-11-03 20:53:00 34.33 kg/m2 Universi ty of [place] [facility] Oxygen saturation in 2020-11-03 20:53:00 99 /min University of Arterial blood by [facility] Pulse oximetry Branch Systolic blood 2020-04-22 17:00:00 115 mm[Hg] Univer sity of pressure [place] [facility] Diastolic blood 2020-04-22 17:00:00 78 mm[Hg] Unive rsity of pressure [place] [facility] Heart rate 2020-04-22 17:00:00 79 /min Universi ty of [place] [facility] Respiratory rate 2020-04-22 17:00:00 18 /min Univ ersity of [place] [facility] Oxygen saturation in 2020-04-22 17:00:00 97 /min University of Arterial blood by [facility] Pulse oximetry Branch Body temperature 2020-04-22 15:03:42 37.06 Daja [facility] [place] [facility] ersity of [place] [facility] Body weight 2020-04-22 14:06:00 90.719 kg Universi ty of [place] [facility] BMI 2020-04-22 14:06:00 34.33 kg/m2 Universi ty of [place] [facility] Systolic blood 2020-04-22 17:00:00 115 mm[Hg] Univer sity of pressure [place] [facility] Diastolic blood 2020-04-22 17:00:00 78 mm[Hg] Unive rsity of pressure [place] [facility] Heart rate 2020-04-22 17:00:00 79 /min Universi ty of [place] [facility] Respiratory rate 2020-04-22 17:00:00 18 /min Univ ersity of [place] [facility] Oxygen saturation in 2020-04-22 17:00:00 97 /min University of Arterial blood by [facility] Pulse oximetry Branch Body temperature 2020-04-22 15:03:42 37.06 Daja Univ ersity of [place] [facility] Body weight 2020-04-22 14:06:00 90.719 kg Universi ty of [place] [facility] BMI 2020-04-22 14:06:00 34.33 kg/m2 Universi ty of [place] [facility] Procedures Procedure Date / Time Performed Performing Clinician Sourc e COMP. METABOLIC PANEL 2020-11-05 03:28:00 Lashawn Sun [facility] ([id number]) Medical Branch CBC WITH DIFF 2020-11-05 03:28:00 Lashawn Sun [facility] Medical Branch URINALYSIS 2020-11-05 03:28:00 Lashawn Sun [facility] Medical [place] NOTICE OF PRIVACY 2020-11-05 02:00:38 Doctor Unassigned, No [facility] Branch CONSENT/REFUSAL FOR 2020-11-05 02:00:15 Doctor Unassigned, No Un iversity of [place] DIAGNOSIS AND Name Medical Branch TREATMENT NOTICE OF PRIVACY 2020-11-03 20:36:23 Doctor Unassigned, [facility] Branch CONSENT/REFUSAL FOR 2020-11-03 20:35:15 Doctor Unassigned, No Un iversity of [place] DIAGNOSIS AND Name Medical Branch TREATMENT CT ABDOMEN PELVIS WO 2020-04-22 14:46:00 Jimbo Obregon [facility] CONTRAST Medical Branch POCT TEST 2020-04-22 14:25:00 Jimbo Obregon [facility] of [place] [facility] COMP. METABOLIC PANEL 2020-04-22 14:24:00 Jimbo [place] ([id number]) Medical Branch CBC WITH DIFF 2020-04-22 14:24:00 [place], [facility] o f [place] [facility] URINALYSIS 2020-04-22 14:24:00 [facility] o f [place] [facility] NOTICE OF PRIVACY 2020-04-22 13:57:03 Doctor Unassigned, No Univ ersity of [facility] Name Medical Branch CONSENT/REFUSAL FOR 2020-04-22 13:56:47 Doctor Unassigned, No Un iversity of [place] DIAGNOSIS AND Name Medical Branch TREATMENT Encounters Start End Encounter Admission Attending Care Care Encounter Source Date/Time Date/Time Type Type Clinicians Facility Department ID 2020-11-04 2020-11-05 Emergency Harika Middleton [facility] [id number] Univers 21:22:00 00:55:00 Ellen Allen [id number] i [facility] [id number] [place] [id number] [place] [id number] Branch 2020-11-04 2020-11-04 Emergency X Harika MIDDLETON [facility] ERT [id number] Univers 21:22:00 21:22:00 ity [facility] 2020-11-03 2020-11-03 Emergency [place] [id number] Univers 15:54:00 17:59:00 [place] [id number] i ty of [place] 4.2.7.2.686 [facility] [id number] [place] [address] Branch 2020-11-03 2020-11-[address] [facility] ERT [id number] Univers 15:35:00 15:35:00 ity [facility] 2020-11-03 2020-11-03 Orders Doctor [place] [id number] Univers 00:00:00 00:00:00 Only Unassigned, CHANEL [id number] [facility] 4.2.7.2.686 [facility] [id number] [place] [address] Branch 2020-04-22 2020-04-22 Emergency [place], [facility] [id number] 08:09:00 11:33:00 Jimbo Allen [id number] [place] 4.2.7.2.686 [place] [id number] 2020-04-22 2020-04-22 Emergency [place], [facility] [id number] Univers 08:09:00 11:33:00 Jimbo Allen [id number] i ty of [place] 4.2.7.2.686 [facility] [id number] [place] [address] Branch 2020-04-22 2020-04-[address] [facility] ERT [id number] Univers 07:58:00 07:58:00 ity [facility] 2020-04-22 2020-04-22 Orders Doctor [place] [id number] 00:00:00 00:00:00 Only UnassignedCHANEL [id number] [facility] 4.2.7.2.686 [id number] 2020-04-22 2020-04-22 Orders Doctor [place] [id number] Univers 00:00:00 00:00:00 Only Unassigned, CHANEL [id number] ity of [facility] 4.2.7.2.686 Bill as [id number] [facility] 009 Branch 2019-12-15 2019-12-15 Letter Doctor [place] [id number] 00:00:00 00:00:00 (Out) Unassigned, CHANEL [id number] [facility] 4.2.7.2.686 [id number] 2019-12-15 2019-12-15 Letter Doctor [place] [id number] Univers 00:00:00 00:00:00 (Out) Unassigned, CHANEL [id number] ity of [facility] 4.2.7.2.686 Bill as [id number] [address] Results Test Description Test Time Test Comments Results Result Comments Source URINALYSIS 2020-11-05 04:15:11 Test Item Value Reference Range Interpretation Comme nts APPEARANCE (test code = Hazy Clear A 7029770135) COLOR (test code = 0225354008) Anai Yellow A PH (test code = 9631636089) 4.8-8.0 SP GRAVITY (test code = 1.003-1.030 5344443853) GLU U QUAL (test code = Normal Normal 8610744928) BLOOD (test code = 6842283421) Negative Negative KETONES (test code = 1304180692) 5 mg/dL Negative A PROTEIN (test code = 2887-8) 30 mg/dL Negative A UROBILIN (test code = Normal Normal 6819785485) BILIRUBIN (test code = Negative Negative 9154133376) NITRITE (test code = 8784760949) Negative Negative LEUK VERNA (test code = Negative Negative 2234722832) RBC/HPF (test code = 8976193996) See_Comment [Automated message] The system which ge nerated this result transmit nessa reference range: 0 - 3 HP F. The reference range was not used to interpret th is result as normal/abnormal . WBC/HPF (test code = 6149949802) See_Comment [Automated message] The system which ge nerated this result transmit nessa reference range: 0 - 5 HP F. The reference range was not used to interpret th is result as normal/abnormal . BACTERIA (test code = Moderate Negative A 2312193679) MUCOUS (test code = 4050420611) Marked Negative LPF A SQ EPITH (test code = HPF 6480653169) HYAL CAST (test code = See_Comment H [Aut omated message] The 6405744776) system which ge nerated this result transmit nessa reference range: <=2 LPF. The reference range was not u sed to interpret this result as normal/abnormal . TRANS EPI (test code = <1 See_Comment [Aut omated message] The 1472138363) system which ge nerated this result transmit nessa reference range: <=1 HPF. The reference range was not u sed to interpret this result as normal/abnormal . Lab Interpretation (test code = Abnormal 45471-0) [facility]. METABOLIC PANEL ([id number])2020-11-05 04:11:13 Test Item Value Reference Range Interpretation Comments NA (test code = 138 mmol/L 135-145 7315514335) K (test code = 3.6 mmol/L 3.5-5.0 6697573122) CL (test code = 102 mmol/L 98-108 6245165215) CO2 TOTAL (test code = 27 mmol/L 23-31 3084512772) AGAP (test code = 2-16 0613259253) BUN (test code = 16 mg/dL 7-23 0864265933) GLUCOSE (test code = 75 mg/dL 70-110 4020138100) CREATININE (test code = 1.11 mg/dL 0.50-1.04 H 8543895117) TOTAL BILI (test code = 0.3 mg/dL 0.1-1.8 1363794933) CALCIUM (test code = 9.5 mg/dL 8.6-10.6 7642207068) T PROTEIN (test code = 7.2 g/dL 6.3-8.2 6680725853) ALBUMIN (test code = 4.2 g/dL 3.5-5.0 3349935522) ALK PHOS (test code = 62 U/L 34-122 1915065039) ALTv (test code = 17 U/L 5-35 1742-6) AST(SGOT) (test code = 29 U/L 13-40 2431554146) eGFR (test code = mL/min/1.73m2 5555500260) EDGAR (test code = EDGAR) Association of Glomerular Filtration Rate (GFR) and Staging of Kidney Disease* + --+ --+ ------+| GFR (mL/min/1.73 m2) ?| With Kidney Damage ?| ?Without Kidney Damage+ --------+ --------+ +| ?>90 ?| ?Stage one ?| ? Normal ?+ ---+ ---+ -------+| ?60-89 ?| ?Stage two ?| ? Decreased GFR ? + --+ --+ ------+| ?30-59 ?| ?Stage three ?| ? Stage three ? + --+ --+ ------+| ?15-29 ?| ?Stage four ? | ? Stage four ?+ ---+ ---+ -------+| ?<15 (or dialysis) ? ?| ?Stage five ? | ? Stage five ?+ ---+ ---+ -------+ *Each stage assumes the associated GFR level has been in effect for at least three months. ?Stages 1 to 5, with or without kidney disease, indicate chronic kidney disease. Notes: Determination of stages one and two (with eGFR >59mL/min/1.73 m2) requires estimation of kidney damage for at least three months as defined by structural or functional abnormalities of the kidney, manifested by either:Pathological abnormalities or Markers of kidney damage (including abnormalities in the composition of the blood or urine or abnormalities in imaging tests). Lab Interpretation Abnormal (test code = 10588-0) [facility] WITH [id number] 03:40:30 Test Item Value Reference Range Interpretation Comments WBC (test code = See_Comment [Automated 7950-2) message] The sy stem which generated this result transmitted reference range : 4.30 - 11.10 10*3/?L. The reference range was not used to interpret this result as normal/abnormal . RBC (test code = See_Comment [Automated 806-1) message] The sy stem which generated this result transmitted reference range : 3.93 - 5.25 10*6/?L. The reference range was not used to interpret this result as normal/abnormal . HGB (test code = 12.3 g/dL 11.6-15.0 718-7) HCT (test code = 37.0 % 35.7-45.2 4544-3) MCV (test code = 91.4 fL 80.6-95.5 787-2) MCH (test code = 30.4 pg 25.9-32.8 785-6) MCHC (test code = 33.2 g/dL 31.6-35.1 786-4) RDW-SD (test code = 42.9 fL 39.0-49.9 35259-6) RDW-CV (test code = 12.9 % 12.0-15.5 788-0) PLT (test code = See_Comment [Automated 777-3) message] The sy stem which generated this result transmitted reference range : 166 - 358 10*3/ ?L. The reference r larry was not used to interpret this result as normal/abnormal . MPV (test code = 9.4 fL 9.5-12.9 L 70422-6) NRBC/100 WBC (test See_Comment [Automat ed code = 4300959805) message] The system which generated this result transmitted reference range : 0.0 - 10.0 /100 WBCs. The refer ence range was not u sed to interpret th is result as normal/abnormal . NRBC x10^3 (test code <0.01 See_Comment [Auto mated = 3262585183) message] The s ystem which generated this result transmitted reference range : 10*3/?L. The reference range was not used to interpret this result as normal/abnormal . GRAN MAT (NEUT) % 56.1 % (test code = 770-8) IMM GRAN % (test code 0.20 % = 0303794549) LYMPH % (test code = 32.7 % 736-9) MONO % (test code = 9.0 % 5905-5) EOS % (test code = 1.6 % 713-8) BASO % (test code = 0.4 % 706-2) GRAN MAT x10^3(ANC) 5.02 10*3/uL 1.88-7.09 (test code = 7212993517) IMM GRAN x10^3 (test <0.03 0.00-0.06 code = 0897134466) LYMPH x10^3 (test code 2.93 10*3/uL 1.32-3.29 = 731-0) MONO x10^3 (test code 0.81 10*3/uL 0.33-0.92 = 742-7) EOS x10^3 (test code = 0.14 10*3/uL 0.03-0.39 711-2) BASO x10^3 (test code 0.04 10*3/uL 0.01-0.07 = 704-7) Lab Interpretation Abnormal (test code = 54379-7) [facility] WITH [id number] 15:23:00 Test Item Value Reference Range Interpretation Comments WBC (test code = See_Comment H [Automated 1650-2) message] The sy stem which generated this result transmitted reference range : 4.30 - 11.10 10*3/?L. The reference range was not used to interpret this result as normal/abnormal . RBC (test code = See_Comment [Automated 379-8) message] The sy stem which generated this result transmitted reference range : 3.93 - 5.25 10*6/?L. The reference range was not used to interpret this result as normal/abnormal . HGB (test code = 12.9 g/dL 11.6-15 718-7) HCT (test code = 38.8 % 35.7-45.2 4544-3) MCV (test code = 92.6 fL 80.6-95.5 787-2) MCH (test code = 30.8 pg 25.9-32.8 785-6) MCHC (test code = 33.2 g/dL 31.6-35.1 786-4) RDW-SD (test code = 41.8 fL 39-49.9 47057-3) RDW-CV (test code = 12.3 % 12-15.5 788-0) PLT (test code = See_Comment [Automated 447-3) message] The sy stem which generated this result transmitted reference range : 166 - 358 10*3/ ?L. The reference r larry was not used to interpret this result as normal/abnormal . MPV (test code = 9.5 fL 9.5-12.9 93663-6) NRBC/100 WBC (test See_Comment [Automat ed code = 7368294124) message] The system which generated this result transmitted reference range : 0.0 - 10.0 /100 WBCs. The refer ence range was not u sed to interpret th is result as normal/abnormal . NRBC x10^3 (test code <0.01 See_Comment [Auto mated = 3256557282) message] The s ystem which generated this result transmitted reference range : 10*3/?L. The reference range was not used to interpret this result as normal/abnormal . GRAN MAT (NEUT) % 74.1 % (test code = 770-8) IMM GRAN % (test code 0.40 % = 4723743915) LYMPH % (test code = 13.0 % 736-9) MONO % (test code = 11.5 % 5905-5) EOS % (test code = 0.8 % 713-8) BASO % (test code = 0.2 % 706-2) GRAN MAT x10^3(ANC) 9.93 10*3/uL 1.88-7.09 H (test code = 7479007237) IMM GRAN x10^3 (test 0.06 10*3/uL 0-0.06 code = 1552168496) LYMPH x10^3 (test code 1.74 10*3/uL 1.32-3.29 = 731-0) MONO x10^3 (test code 1.55 10*3/uL 0.33-0.92 H = 742-7) EOS x10^3 (test code = 0.11 10*3/uL 0.03-0.39 711-2) BASO x10^3 (test code 0.03 10*3/uL 0.01-0.07 = 704-7) Lab Interpretation Abnormal (test code = 38118-2) [facility] [id number] 15:12:23CT Abdomen and Pelvis without contrast. CLINICAL HISTORY: ?FLANK PAIN WITH HEMATURIA. R/O RENAL STONES. TECHNIQUE: Multidetector helical CT acquisition was obtained from the lungbases to the greater trochanters without oral and IV contrast. ?The imageswere reviewed in lung, bone, and soft tissue windows. FINDINGS: ?Absence of intravenous contrast limits evaluation of the solidorgans. Evaluation of the bowel is also limited by lack of oral contrast. Lower lungs: Clear. Liver, Gallbladder and Spleen: Unremarkable. Peritoneum: ?No free air or free fluid. No lymphadenopathy. Pancreas and Adrenals: ?Unremarkable pancreas and adrenal glands. Kidneys and Ureters: Mild increased attenuation of the renal pyramids notedon both sides which could be signs of systemic dehydration and/or very mildform of tubular ectasia. No kidney stones are seen. Congestion notedsurrounding the inferior pole of right kidney with thick and the renalfascia. Multiple calcifications are seen in the pelvis, most likelyphleboliths.. ? Vessels: Normal. Retroperitoneum: No abnormal fluid or lymphadenopathy. Bowel: No acute findings. Normal appendix is visualized. Bladder ?and Reproductive Organs: Urinary bladder is collapsed. No g rosspathology in the uterus or adnexa. Bones: Exaggerated lumbar lordosis, probably partially sacralized L5, withbilateral L5 spondylolysis and very minimal spondylolisthesis. Soft tissues: Unremarkable. CONCLUSION:1. No kidney stones or hydronephrosis. Increased attenuation of the renalpyramids couldbe signs of systemic dehydration and/or mild form of tubularectasia.2. Congestion of focal fat and thickened fascia along the inferior pole ofthe right kidney could be sign of recently passed kidney stone. The otherpossibility is pyelonephritis. Please correlate with history and urinalysisas well as blood test results. [facility], Radiant Results Inft User - 04/22/2020 9:13 AM CSTCT Abdomen and Pelvis without contrast.CLINICAL HISTORY: FLANK PAIN WITH HEMATURIA. R/O RENAL STONES.TECHNIQUE: Multidetector helical CT acquisition was obtained from the lungbases to the greater trochanters without oral and IV contrast. The imageswere reviewed in lung, bone, and soft tissue windows.FINDINGS: Absence of intravenous contrast limits evaluation of the solidorgans. Evaluation of the bowel is also limited by lack of oral contrast. Lower lungs: Clear.Liver, Gallbladder and Spleen: Unremarkable.Peritoneum:No free air or free fluid. No lymphadenopathy.Pancreas and Adrenals: Unremarkable pancreas and adrenal glands.Kidneys and Ureters: Mild increased attenuation of the renal pyramids notedon both sides which could be signs of systemic dehydration and/or very mildform of tubular ectasia. No kidney stonesare seen. Congestion notedsurrounding the inferior pole of right kidney with thick and the renalfascia. Multiple calcifications are seen in the pelvis, most likelyphleboliths.. Vessels: Normal.Retroperitoneum: No abnormal fluid or lymphadenopathy.Bowel: No acute findings. Normal appendix is visualized.Bladder and Reproductive Organs: Urinary bladder is collapsed. No grosspathology in the uterus or adnexa. Bones: Exaggerated lumbar lordosis, probably partially sacralized L5, withbilateral L5 spondylolysis and very minimal spondylolisthesis.Soft tissues: Unremarkable.CONCLUSION:1. No kidney stones or hydronephrosis. Increased attenuation of the renalpyramids could be signs of systemic dehydration and/or mild form of tubularectasia.2. Congestion of focal fat and thickened fascia along the inferiorpole ofthe right kidney could be sign of recently passed kidney stone. The otherpossibility is pyelonephritis. Please correlate with history and urinalysisas well as blood test results.[facility]. METABOLIC PANEL ([id number])2020-04-22 15:01:00 Test Item Value Reference Range Interpretation Comments NA (test code = 135 mmol/L 135-145 7890359636) K (test code = 3.6 mmol/L 3.5-5 3451549636) CL (test code = 103 mmol/L 98-108 2406356850) CO2 TOTAL (test code = 24 mmol/L 23-31 4442209776) AGAP (test code = 2-16 5981797364) BUN (test code = 9 mg/dL 7-23 2562375792) GLUCOSE (test code = 108 mg/dL 70-110 8566212208) CREATININE (test code 0.82 mg/dL 0.5-1.04 = 8822779111) TOTAL BILI (test code 0.5 mg/dL 0.1-1.1 = 0189420549) CALCIUM (test code = 9.1 mg/dL 8.6-10.6 2376719374) T PROTEIN (test code = 7.6 g/dL 6.3-8.2 8428235934) ALBUMIN (test code = 4.3 g/dL 3.5-5 3385098641) ALK PHOS (test code = 79 U/L 34-122 7595780249) ALTv (test code = 18 U/L 5-35 1742-6) AST(SGOT) (test code = 24 U/L 13-40 5277876404) eGFR Calculation mL/min/1.73m2 (Non-) (test code = 0140492294) eGFR Calculation mL/min/1.73m2 () (test code = 6606053480) EDGAR (test code = EDGAR) Association of Glomerular Filtration Rate (GFR) and Staging of Kidney Disease* + -+ + ---+| GFR (mL/min/1.73 m2) ?| With Kidney Damage ?| ?Without Kidney Damage+ -------+ ------+ ---------+| ?>90 ?| ?Stage one ?| ? Normal ?+ --+ -+ ----+| ?60-89 ?| ?Stage two ?| ? Decreased GFR ? + -+ + ---+| ?30-59 ?| ?Stage three ?| ? Stage three ? + -+ + ---+| ?15-29 ?| ?Stage four ? | ? Stage four ?+ --+ -+ ----+| ?<15 (or dialysis) ? ?| ?Stage five ? | ? Stage five ?+ --+ -+ ----+ *Each stage assumes the associated GFR level has been in effect for at least three months. ?Stages 1 to 5, with or without kidney disease, indicate chronic kidney disease. Notes: Determination of stages one and two (with eGFR >59mL/min/1.73 m2) requires estimation of kidney damage for at least three months as defined by structural or functional abnormalities of the kidney, manifested by either:Pathological abnormalities or Markers of kidney damage (including abnormalities in the composition of the blood or urine or abnormalities in imaging tests). [facility] [id number] 14:59:00 Test Item Value Reference Range Interpretation Comments APPEARANCE (test code = Hazy Clear A 1025531444) COLOR (test code = Yellow Yellow 4238382092) PH (test code = 4.8-8.0 6252209420) SP GRAVITY (test code = 1.003-1.030 8725227418) GLU U QUAL (test code = Normal Normal 5318314365) BLOOD (test code = 1+ Negative A 6574839869) KETONES (test code = 5 mg/dL Negative A 4695663797) PROTEIN (test code = Negative Negative 2887-8) UROBILIN (test code = Normal Normal 8729566412) BILIRUBIN (test code = Negative Negative 5239470888) NITRITE (test code = Positive Negative A 5092731409) LEUK VERNA (test code = 25/uL Negative A 9070720815) RBC/HPF (test code = See_Comment [Autom ated message] 2712364218) The system [employer] generated this result transmitted ref erence range: 0 - 3 HP F. The reference range was not used to int erpret this result as normal/abnormal . WBC/HPF (test code = See_Comment H [Autom ated message] 1617167932) The system [employer] generated this result transmitted ref erence range: 0 - 5 HP F. The reference range was not used to int erpret this result as normal/abnormal . BACTERIA (test code = Moderate Negative A 6233959563) MUCOUS (test code = Moderate Negative LPF A 4290277795) SQ EPITH (test code = HPF 5077588142) Lab Interpretation (test Abnormal code = 43626-2) [facility] [id number] 14:25:00 Test Item Value Reference Range Interpretation Comments POCT PREG (test code = 1605) negative On board controls acceptable with present C Line (test code = 3574) POCT PREG LOT # (test code = 3575) [id number] POCT PREG TEST DATE (test 2021-11-30 code = 3576) Lab Interpretation (test code = Normal 84708-5) [facility]"
[2021-04-13 07:33] LABS: Urine Blood Negative (Negative); Urine Glucose Negative (Negative); Urine Protein Negative (Negative); Urine Specific Gravity 1.025 (1.005-1.030)
[2021-04-13] MEDS ORDERED: ONDANSETRON 4 MG/2 ML VIAL ONE (07:34)
[2021-04-13] MEDS ORDERED: NA CHLORIDE 0.9% 1,000 ML ONE (07:34)
[2021-04-13] MEDS ORDERED: MORPHINE 4 MG/ML SYR ONE ×2 (07:34→09:53)
[2021-04-13 07:42] LABS: Absolute Lymphocytes (CBC) 0.4 K/uL (0.7-4.9); Lymphocytes % 3.7 % (15.3-44.8); MPV 7.6 fL (7.6-11.3); RBC Red Blood Cell Count 4.47 M/uL (3.86-4.86)
[2021-04-13 08:09] LABS: Urine Bacteria <20 /HPF (<20); Urine RBC <5 /HPF (NONE SEEN)
[2021-04-13 08:10] LABS: Potassium 3.5 mmol/L (3.5-5.1)
[2021-04-13 08:45] LABS: Urine Specific Gravity/Preg 1.025 (1.005-1.030)
[2021-04-13 09:23] LABS: SARS-COV-2 RT PCR NEGATIVE (NEGATIVE)
--- NOTE | 2021-04-13 09:31 | RAD REPORT ---
EXAM DESCRIPTION: CT - Abdomen Pelvis W Contrast - 04/13/2021 8:59 am CLINICAL HISTORY: fever, vomiting;Abd pain COMPARISON: Abdomen Pelvis W Contrast dated 03/11/2016 TECHNIQUE: Biphasic, helical CT imaging of the abdomen and pelvis was performed following 100 ml non -ionic IV contrast. No oral contrast administered. All CT scans are performed using dose optimization technique as appropriate and may include automated exposure control or mA/KV adjustment according to patient size. FINDINGS: No suspicious findings in the lung bases. The liver, spleen, and pancreas show no suspicious findings. Gallbladder and biliary tree are also wi thout suspicious finding. Symmetric renal function is seen with no hydronephrosis or suspicious renal mass. No pyelonephritis o r acute parenchymal process. Urinary bladder is only partially filled. Bladder wall does not appear t hickened or edematous. There are no bladder calculi present. Patient has numerous pelvic floor phlebo liths but none of these can be localize to a ureter. No adrenal abnormalities. Uterus and right ovary show no suspicious findings. Left ovary shows a 15 millimeter involuting cyst. Trace amounts of phys iologic quantity fluid seen in the adnexa and cul-de-sac. No gastric abnormality seen. A few of the distal small bowel loops are mildly prominent. This is a mi nimal finding. A few scattered mesenteric sub centimeter lymph nodes are seen. Tip of the cecum rests on the floor the pelvis. No appendicitis findings. No free air or pneumatosis. No abnormal free fluid or inflammatory stranding. No mass or bulky lym phadenopathy. No hernia finding seen. Patient does have L5 spondylolysis but there is no spondylolisthesis. Vertebral body height and align ment are normal. IMPRESSION: No CT findings of pyelonephritis. Cystitis is not suspected based on CT findings. No hyd ronephrosis or acute abnormality seen. A few mildly prominent small bowel loops in the lower left abdomen. This is a minimal finding. No sherry endicitis findings. Small involuting left ovarian cyst. L5 spondylolysis without spondylolisthesis. This is a potential source for back pain but would not be associated with fever symptoms.
--- NOTE | 2021-04-13 09:46 | EDPHYS ---
Physician Documentation [facility] Name: Sharon Bee Age: 30 yrs Sex: Female : 1990 Arrival Date: 04/13/2021 Time: 06:34 Bed 13 Private MD: ED Physician Manolo Bravo HPI: 04/13 07:27 This 30 yrs old Female presents to ER via Ambulatory with complaints of Back rn Pain, Nausea. 07:27 This 30 yrs old Female presents to ER via Ambulatory with complaints of Back rn Pain, Nausea. 07:27 The patient presents with pain that is acute. The symptoms are located in the left mid rn back and right mid back. Onset: The symptoms/episode began/occurred last night. The pain does not radiate. Associated signs and symptoms: Pertinent positives: abdominal pain, fever, nausea, vomiting, Pertinent negatives: chest pain, urinary retention, weakness. Modifying factors: The patient symptoms are alleviated by nothing, the patient symptoms are aggravated by nothing. Severity of symptoms: At their worst the symptoms were moderate, in the emergency department the symptoms are unchanged. The patient has experienced a previous episode. The patient has not recently seen a physician. Patient reports mid back pain since last night. Associated with abdominal pain, nausea, vomiting, diarrhea. Reports subjective fever and chills. Generalized weakness and malaise. Denies cough or shortness of breath.. 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 - Social history:: Smoking status: Reported history of juuling and/or vaping. - Family history:: not pertinent. - Hospitalizations: : No recent hospitalization is reported. ROS: 07:27 Constitutional: Positive for fever and chills Eyes: Negative for injury, pain, redness, rn and discharge, ENT: Negative for injury, pain, and discharge, Neck: Negative for injury, pain, and swelling, Cardiovascular: Negative for chest pain, palpitations, and edema, Respiratory: Negative for shortness of breath, cough, wheezing, and pleuritic chest pain, Abdomen/GI: Positive for abdominal pain/nausea/vomiting/diarrhea Back: Positive for mid back pain : Negative for injury, bleeding, discharge, and swelling, MS/Extremity: Negative for injury and deformity, Skin: Negative for injury, rash, and discoloration, Neuro: Negative for headache, numbness, tingling, and seizure. Exam: 07:30 Constitutional: This is a well developed, well nourished patient who is awake, alert, rn appears uncomfortable, sitting upright Head/Face: Normocephalic, atraumatic. Eyes: Periorbital areas with no swelling, redness, or edema. Cardiovascular: Tachycardic, regular. No pulse deficits. Respiratory: Mild tachypnea, speaking full sentences Abdomen/GI: Soft, nontender nondistended Back: No spinal tenderness. No costovertebral tenderness. Full range of motion. Skin: Warm, dry MS/ Extremity: Pulses equal, no cyanosis. Neuro: Awake and alert, GCS 15 Vital Signs: 06:54 BP 126 / 81; Pulse 106; Resp 24; Temp 97.9; Pulse Ox 100% on R/A; Weight 89.81 kg; vc1 Height 5 ft. 4 in. (162.56 cm); Pain 8/10; 08:24 BP 118 / 76; Pulse 83; Resp 17; Pulse Ox 100% ; Pain 0/10; jh6 10:00 BP 112 / 70; Pulse 76; Resp 18; Temp 97.9(O); Pulse Ox 99% ; Pain 1/10; jh6 06:54 Body Mass Index 33.99 (89.81 kg, 162.56 cm) vc1 MDM: 07:01 Patient medically screened. rn 09:43 Differential diagnosis: Hydronephrosis Pyelonephritis UTI, myalgias, viral rn syndrome, COVID, flu. Data reviewed: vital signs, nurses notes, lab test result(s), radiologic studies, CT scan, and as a result, I will discharge patient. Counseling: I had a detailed discussion with the patient and/or guardian regarding: the historical points, exam findings, and any diagnostic results supporting the discharge/admit diagnosis, lab results, radiology results, the need for outpatient follow up, to return to the emergency department if symptoms worsen or persist or if there are any questions or concerns that arise at home. Response to treatment: the patient's symptoms have markedly improved after treatment, and as a result, I will discharge patient. Special discussion: Based on the patient's Hx, exam, and Dx evaluation, there is no indication for emergent surgery or inpatient Tx. It is understood by the patient/guardian that if the Sx's persist or worsen they need to return immediately for re-evaluation. I discussed with the patient/guardian in detail that at this point there is no indication for admission to the hospital. It is understood, however, that if the symptoms persist or worsen the patient needs to return immediately for re-evaluation. ED course: CT scan without acute findings. Possible enteritis given nonspecific findings on CT as well as vomiting and diarrhea. No urinary infection or pyelonephritis. COVID-negative but symptoms just began last night and told her to get retested in 48 hours. Will DC home with return precautions.. 04/13 07:03 Order name: Urine Culture 04/13 07:03 Order name: Urine Microscopic Only 04/13 07:03 Order name: Urine Culture [facility] 04/13 07:03 Order name: Urine Microscopic Only; Complete Time: 08:16 [facility] 04/13 07:17 Order name: CBC with Diff; Complete Time: 07:45 04/13 07:17 Order name: Basic Metabolic Panel; Complete Time: 08:16 04/13 07:17 Order name: Blood Culture Adult (2) 04/13 07:17 Order name: Procalcitonin; Complete Time: 09:11 04/13 07:17 Order name: COVID-19/FLU A+B (Document "Date of Onset" if Symptomatic); Complete Time: rn 09:27 04/13 07:17 Order name: CT Abd/Pelvis - IV Contrast Only; Complete Time: 09:33 04/13 07:32 Order name: Urine Dipstick-Ancillary; Complete Time: 07:45 [facility] 04/13 07:46 Order name: Urine --Ancillary (enter results); Complete Time: 09:11 bd 04/13 07:03 Order name: Urine Dipstick-Ancillary (obtain specimen); Complete Time: 07:40 rn 04/13 07:03 Order name: Urine Test (obtain specimen); Complete Time: 07:40 04/13 07:17 Order name: IV Start; Complete Time: 07:19 rn Administered Medications: 07:35 Drug: morphine 4 mg Route: IVP; Site: right antecubital; 6 07:58 Follow up: Response: Pain is decreased 6 07:35 Drug: Zofran (Ondansetron) 4 mg Route: IVP; Site: right antecubital; 6 07:58 Follow up: Response: Nausea is decreased 6 07:35 Drug: NS 0.9% 1000 ml Route: IV; Rate: 1000 ml; Site: right antecubital; 6 08:34 Follow up: IV Status: Completed infusion; IV Intake: 1000ml 6 09:49 Drug: morphine 4 mg Route: IVP; Site: right antecubital; [facility] 10:03 Follow up: Response: No adverse reaction [facility] Disposition Summary: 04/13/21 09:45 Discharge Ordered Location: Home rn Problem: new rn Symptoms: have improved rn Condition: Stable rn Diagnosis - Vomiting rn - Diarrhea, unspecified rn - Myalgia rn Followup: rn - With: Private Physician - When: As needed - Reason: Recheck today's complaints, Re-evaluation by your physician Discharge Instructions: - Discharge Summary Sheet rn - Diarrhea, Adult rn - Vomiting, Adult rn Forms: - Medication Reconciliation Form rn - Thank You Letter rn - Antibiotic rn angiography - Prescription Opioid Use rn Prescriptions: - ondansetron 4 mg Oral tablet,disintegrating - place 1 tablet by TRANSLINGUAL route every 8 hours As needed; 15 tablet; rn Refills: 0, Product Selection Permitted Signatures: Dispatcher [employer] Manolo Alcantar MD MD rn Hastedt, Jennifer RN RN jh6 Tana Marks, RN RN vc1
--- NOTE | 2021-04-13 09:46 | ER ---
Nurse's Notes [facility] Name: Sharon Bee Age: 30 yrs Sex: Female : 1990 Arrival Date: 04/13/2021 Time: 06:34 Bed 13 Private MD: Diagnosis: Vomiting;Diarrhea, unspecified;Myalgia Presentation: 04/13 06:54 Chief complaint: Patient states: Last night around 10 oclock my back started hurting, I vc1 went to take a bath to try and feel better but started throwing up, I didn't stop all night. I also have diarrhea I felt like I was running a fever so I took Dayquil around 550. Coronavirus screen: Vaccine status: Patient reports being unvaccinated. diarrhea, muscle pain, vomiting. The client reports previous COVID testing was negative. Date of collection: April 04, 2021. Ebola Screen: No symptoms or risks identified at this time. Initial Sepsis Screen: Does the patient meet any 2 criteria? No. Patient's initial sepsis screen is negative. Does the patient have a suspected source of infection? No. Patient's initial sepsis screen is negative. Risk Assessment: Do you want to hurt yourself or someone else? Patient reports no desire to harm self or others. Onset of symptoms was April 12, 2021 at 22:00. Care prior to arrival: Medication(s) given: Dayquil \T\0600. 06:54 Method Of Arrival: Ambulatory vc1 06:54 Acuity: MARZENA 3 vc1 Triage Assessment: 07:00 General: Appears uncomfortable, ill, Behavior is crying. Pain: Complains of pain in vc1 left mid back and right mid back Pain does not radiate. Pain currently is 8 out of 10 on a pain scale. Quality of pain is described as aching, throbbing, Pain began suddenly, Alleviated by nothing. applying pressure. Neuro: No deficits noted. GI: Reports lower abdominal pain, diarrhea, nausea, vomiting. Musculoskeletal: Circulation, motion, and sensation intact. LPN RN: 07:01 LMP 03/31/2021 vc1 Historical: - Allergies: 06:59 No Known Allergies; vc1 - Home Meds: 06:59 None [Active]; vc1 - PMHx: 06:59 Kidney Infections; Heart Murmur; vc1 - PSHx: 06:59 None; vc1 - Immunization history:: Adult Immunizations up to date, Client reports having NOT received the Covid vaccine. - Social history:: Smoking status: Reported history of juuling and/or vaping. - Family history:: not pertinent. - Hospitalizations: : No recent hospitalization is reported. Screenin:17 Abuse screen: Denies threats or abuse. Nutritional screening: No deficits noted. jh6 Tuberculosis screening: No symptoms or risk factors identified. Fall Risk None identified. Assessment: 07:14 General: Appears uncomfortable, obese, Behavior is cooperative. Pain: Complains of pain jh6 in left mid back and right mid back Pain currently is 10 out of 10 on a pain scale. level that patient reports is acceptable is 3 out of 10 on a pain scale. Quality of pain is described as gnawing, Pain began 1 day ago. Is continuous. Neuro: No deficits noted. GI: Reports nausea, vomiting, since lastnight. 07:58 Reassessment: Patient states feeling better. Patient states symptoms have improved. 6 10:04 Reassessment: Patient states feeling better. Patient states symptoms have improved. 6 Vital Signs: 06:54 BP 126 / 81; Pulse 106; Resp 24; Temp 97.9; Pulse Ox 100% on R/A; Weight 89.81 kg; vc1 Height 5 ft. 4 in. (162.56 cm); Pain 8/10; 08:24 BP 118 / 76; Pulse 83; Resp 17; Pulse Ox 100% ; Pain 0/10; jh6 10:00 BP 112 / 70; Pulse 76; Resp 18; Temp 97.9(O); Pulse Ox 99% ; Pain 1/10; jh6 06:54 Body Mass Index 33.99 (89.81 kg, 162.56 cm) vc1 ED Course: 06:34 Patient arrived in ED. bp1 06:59 Triage completed. vc1 07:01 Manolo Bravo MD is Attending Physician. rn 07:02 Arm band placed on right wrist. Patient placed in an exam room. vc1 07:14 Lianet Gann, KELLEY is Primary Nurse. 6 07:16 Inserted saline lock: 20 gauge in right antecubital area, using aseptic technique. 6 07:17 Placed in gown. Bed in low position. Call light in reach. Adult w/ patient. 6 07:40 Urine Culture Sent. 5 07:40 Urine Microscopic Only Sent. 5 07:41 Urine Culture Sent. 5 07:41 Urine Microscopic Only Sent. 5 08:59 CT Abd/Pelvis - IV Contrast Only In Process Unspecified. EDMS 10:03 No provider procedures requiring assistance completed. IV discontinued, intact, jh6 bleeding controlled, No redness/swelling at site. Pressure dressing applied. Administered Medications: 07:35 Drug: morphine 4 mg Route: IVP; Site: right antecubital; 6 07:58 Follow up: Response: Pain is decreased [facility] 07:35 Drug: Zofran (Ondansetron) 4 mg Route: IVP; Site: right antecubital; 6 07:58 Follow up: Response: Nausea is decreased [facility] 07:35 Drug: NS 0.9% 1000 ml Route: IV; Rate: 1000 ml; Site: right antecubital; 6 08:34 Follow up: IV Status: Completed infusion; IV Intake: 1000ml [facility] 09:49 Drug: morphine 4 mg Route: IVP; Site: right antecubital; 6 10:03 Follow up: Response: No adverse reaction [facility] Intake: 08:34 IV: 1000ml; Total: 1000ml. [facility] Outcome: 09:45 Discharge ordered by . rn 10:03 Discharged to home ambulatory. [facility] 10:03 Condition: improved 10:03 Discharge instructions given to patient, Instructed on discharge instructions, follow up and referral plans. Demonstrated understanding of instructions, follow-up care, medications, Prescriptions given X 1. 10:05 Patient left the ED. [facility] Signatures: Dispatcher [employer] EDMS Manolo Bravo MD MD rn Martinez, Maria Criss Mcmillan Jennifer RN RN 6 Tana Marks RN RN vc1
[2021-04-13 10:15] VITALS: TEMP 97.9
[2021-04-13 10:18] VITALS: BP 112/70; O2SAT 99
== END 2021-04-13 10:05 | disposition home or self-care (01) ==
LOC: ER 06:32
DX: R19.7 Diarrhea, unspecified (principal); M79.10 Myalgia, unspecified site; Z20.822 Contact with and (suspected) exposure to COVID-19
CPT/HCPCS: 0240U; 36415; 74177; 80048; 81003; 81015; 81025; 84145; 85025; 87040; 87086; 87088; 87205; J2405; J7030; Q9967

== ENCOUNTER 2022-08-19 15:53 | Emergency (ER) | payer SELFPAY ==
--- OUTSIDE RECORDS SUMMARY | 2022-08-19 15:56 | XMS REPORT | Continuity of Care Document ---
:1990 Author Organization [facility] t Address [address] [place] [address] Care Team Providers Name Role Phone Pcp, Patient Does Not Have A Primary Care Physician [id number] TRANG ADAMS Attending Clinician Unavailable Trang Mcnulty Attending Clinician ABBE OBREGON Attending Clinician Unavailable Abbe Obregon DO Attending Clinician DOUG DEE Attending Clinician Unavailable Doug Dee MD Attending Clinician МАРИЯ FOX Attending Clinician Unavailable Мария Fox MD Attending Clinician Harika Iqbal Attending Clinician Harika MIDDLETON Attending Clinician Unavailable Doctor Unassigned, [place] Attending Clinician Unavailable Payers Payer Name Policy Type Policy Number Effective Date Expiration Date S yogi [facility] - [id number] 2013 00:00:00 OUT OF STATE Problems Condition [...] different from the original. 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 Marijuana . 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 ICD10 Diagnosis Term Program Director Utility Allergies, Adverse Reactions, Alerts Allergy Allergy Status Severity Reaction(s) Onset Inactive Treating Comm ents Source Name Type Date Date Clinician NO KNOWN Drug Active Univers ALLERGIE Class ity of S [facility] Social History Social Habit Start Date Stop Date Quantity Comments Source History of Current smoker University of tobacco use [facility] Exposure to 2022-06-24 2022-07-04 Not sure University SARS-CoV-2 00:00:00 19:15:00 [facility] (event) Branch Alcohol intake 2022-07-04 2022-07-04 Current University of 00:00:00 00:00:00 non-drinker of [facility] alcohol (finding) Branch Tobacco use and 2013-03-24 2013-03-24 Smokeless tobacco Un iversity of exposure 00:00:00 00:00:00 non-user [facility] Tobacco Comment 2013-03-24 2013-03-24 states she only Univ ersity of 00:00:00 00:00:00 smoked once a [place] [facility] week ago and has Branch stopped. states only time she smoked Sex Ass[birth year] At [birth year] Universit y of 00:00:00 00:00:00 [facility] Smoking Status Start Date Stop Date Source Ex-smoker 2013-03-24 00:00:00 2013-03-24 00:00:00 Universi [facility] Medical Branch Medications Ordered Filled Start Stop Current Ordering Indication Dosage Frequency Signature Comments Components Source Medication Medication Date Date Medication? Clinician (SIG) Name Name predniSONE 2022- No 60mg 60 mg, Univ ers (DELTASONE) 07-05 Oral, ity of tablet 60 00:45: 00:47 ONCE, 1 [place] mg 00 :00 dose, On Sun07/04/22 Branch at 1945, MICHELLE valACYclovi 2022- Yes [id number] 1g Take 1 Univers r 1 gram 07-04 tablet by ity o f tablet 00:00: 04:59 mouth in [place] 00 :00 the Medical morning Branch and 1 tablet at noon and 1 tablet in the evening. Do all this for 7 days. predniSONE 2022- Yes [id number] 40mg Take 2 Univers 20 mg 07-04- tablets by ity of tablet 00:00: 04:59 mouth in [place] 00 :00 the Medical morning Branch for 4 days. terbinafine Yes [id number] Apply to Univers HCL 1 % 3-02 area(s) 2 ity of cream 00:00: (two) [place] 00 times Medical daily. Branch terbinafine 0 Yes [id number] 250mg Take 1 Univers HCL 250 mg 3-02 tablet by ity of tablet 00:00: mouth in [place] 00 the Medical morning. Branch terbinafine 0 Yes [id number] Apply to Univers HCL 1 % 3-02 area(s) 2 ity of cream 00:00: (two) [place] 00 times Medical daily. Branch terbinafine 0 Yes [id number] 250mg Take 1 Univers HCL 250 mg 3-02 tablet by ity of tablet 00:00: mouth in [place] 00 the Medical morning. Branch terbinafine 2022-0 Yes [id number] Apply to Univers HCL 1 % 3-02 area(s) 2 ity of cream 00:00: (two) [place] 00 times Medical daily. [place] terbinafine 2022-0 Yes [id number] 250mg Take 1 Univers HCL 250 mg 3-02 tablet by ity of tablet 00:00: mouth in [place] 00 the Medical morning. [place] terbinafine 2022-0 Yes [id number] Apply to Univers HCL 1 % 3-02 area(s) 2 ity of cream 00:00: (two) [place] 00 times Medical daily. Branch terbinafine Yes [id number] 250mg Take 1 Univers HCL 250 mg 3-02 tablet by ity of tablet 00:00: mouth in [place] 00 the Medical morning. Branch amoxicillin 2020- No 500mg Take 500 Univers (TRIMOX) 8 08-05 mg by ity of 500 mg 02:18: 00:00 mouth 3 [place] capsule 27 :00 (three) Medical times Branch daily. ALPRAZolam 2020- No .5mg Take 0.5 Un deangelo (XANAX) 0.5 8 08-05 mg by ity of mg tablet 02:18: 00:00 mouth 2 [place] 21 :00 (two) Medical times Branch daily. acetaminoph 2020- No 650mg Take 650 Univers en 8 08-05 mg by ity of (TYLENOL) 02:18: [...] of 2,000 mg in 17:15: 16:56 Piggyback, [place] NaCl 0.9% 00 :00 ONCE, 1 Medical (NS) 100 mL dose, [facility] MINI-BAG 04/22/20 at 1115, 100 mL
Reas on for Anti-Infec tive: Empiric Therapy for Suspected Infection< br>Empiric Therapy Site: Urine
D uration of therapy: 72 hours NaCl 0.9% 2020- No 1000mL at 999 Uni vers (NS) bolus 1-21 01-21 mL/hr, ity of infusion 15:30: 16:00 1,000 mL, Bill as 1,000 mL 00 :00 IV Medical Piggyback, Branch ONCE, 1 dose, Bas[place] 04/22/20 at 0930, STAT ondansetron 2020- No 4mg 4 mg, Slow Univers (ZOFRAN 04-22 IV Push, ity of (PF)) 14:30: 14:25 ONCE, 1 [place] injection 4 00 :00 dose, [place] Med ical mg 04/22/20 at Branch 0830, Routine ondansetron Yes [id number] 4mg Take 1 Univers 4 mg -21 tablet by ity of disintegrat 00:00: mouth [place] ing tablet 00 every 8 Medica l (eight) Branch hours as needed for Nausea and Vomiting (N/V). ondansetron Yes [id number] 4mg Take 1 Univers 4 mg -21 tablet by ity of disintegrat 00:00: mouth [place] ing tablet 00 every 8 Medica l (eight) Branch hours as needed for Nausea and Vomiting (N/V). ondansetron Yes [id number] 4mg Take 1 Univers 4 mg -21 tablet by ity of disintegrat 00:00: mouth [place] ing tablet 00 every 8 Medica l (eight) Branch hours as needed for Nausea and Vomiting (N/V). ondansetron 2020- No [id number] 4mg Take 1 Univers 4 mg 04-22 08-05 tablet by ity of disintegrat 00:00: 00:00 [place] tablet 00 :00 every 8 Medica l (eight) Branch hours as needed for Nausea and Vomiting (N/V). sulfamethox 2020- No [id number] 1{tbl} Take 1 Univers azole-trime - 02-05 tablet by it y of thoprim [...] ity of mg tablet 16:14: mouth 2 [place] 46 (two) Medical times Branch daily. ALPRAZolam 2012-04 Yes .5mg Take 0.5 Uni vers (XANAX) 0.5 2-23 mg by ity of mg tablet 16:14: mouth 2 [place] 46 (two) Medical times Branch daily. ALPRAZolam 2012-04 Yes .5mg Take 0.5 Uni vers (XANAX) 0.5 2-23 mg by ity of mg tablet 16:14: mouth 2 [place] 46 (two) Medical times Branch daily. ALPRAZolam 2012-04 Yes .5mg Take 0.5 Uni vers (XANAX) 0.5 2-23 mg by ity of mg tablet 16:14: mouth 2 [place] 46 (two) Medical times Branch daily. ALPRAZolam 2012-04 Yes .5mg Take 0.5 Uni vers (XANAX) 0.5 2-23 mg by ity of mg tablet 16:14: mouth 2 [place] 46 (two) Medical times Branch daily. amoxicillin [...] (three) Medical times Branch daily. 2012-04 Yes [id number] 1{tbl} Take 1 Tab Univers multivitami 2-23 by mouth ity of n ( 00:00: [place]. [place] VITAMIN) 00 Medical tablet Branch 2012-04 Yes [id number] 1{tbl} Take 1 Tab Univers multivitami 2-23 by mouth ity of n ( 00:00: daily. [place] VITAMIN) 00 Medical tablet Branch 2012-04 Yes [id number] 1{tbl} Take 1 Tab Univers multivitami 2-23 by mouth ity of n ( 00:00: daily. [place] VITAMIN) 00 Medical tablet Branch 2012-04 Yes [id number] 1{tbl} Take 1 Tab Univers multivitami 2-23 by mouth ity of n ( 00:00: daily. [place] VITAMIN) 00 Medical tablet Branch 2012-04 Yes [id number] 1{tbl} Take 1 Tab Univers multivitami 2-23 by mouth ity of n ( 00:00: daily. [place] VITAMIN) 00 Medical tablet Branch 2012-04- No [id number] 1{tbl} Take 1 Tab Univers multivitami 2-23 08-05 by mouth ity of n ( 00:00: 00:00 daily. Bill as VITAMIN) 00 :00 Medical tablet Branch Immunizations Ordered Filled Immunization Date Status Comments [facility] Immunization Name Name Rubella 2011-03-11 Completed [facility] 00:00:00 [facility] Varicella 2011-03-11 Completed [facility] (varivax)(chicken 00:00:00 [place] M edical pox) Branch Rubella 2011-03-11 Completed University of 00:00:00 [facility] Varicella 2011-03-11 Completed University of (varivax)(chicken 00:00:00 [place] M edical pox) Branch Rubella 2011-03-11 Completed University of 00:00:00 [facility] Varicella 2011-03-11 Completed University of (varivax)(chicken 00:00:00 [place] M edical pox) Branch Rubella 2011-03-11 Completed University of 00:00:00 [facility] Varicella 2011-03-11 Completed University of (varivax)(chicken 00:00:00 [place] M edical pox) Branch Rubella 2011-03-11 Completed University of 00:00:00 [facility] Varicella 2011-03-11 Completed University of (varivax)(chicken 00:00:00 [place] M edical pox) Branch Rubella 2011-03-11 Completed University of 00:00:00 [facility] Varicella 2011-03-11 Completed University of (varivax)(chicken 00:00:00 [place] M edical pox) Branch Rubella 2011-03-11 Completed University of 00:00:00 [facility] Varicella 2011-03-11 Completed University of (varivax)(chicken 00:00:00 [place] M edical pox) Branch Rubella 2011-03-11 Completed University of 00:00:00 [facility] Varicella 2011-03-11 Completed University of (varivax)(chicken 00:00:00 [place] M edical pox) Branch Rubella 2011-03-11 Completed University of 00:00:00 [facility] Varicella 2011-03-11 Completed University of (varivax)(chicken 00:00:00 [place] M edical pox) Branch Rubella 2011-03-11 Completed University of 00:00:00 [facility] Varicella 2011-03-11 Completed University of (varivax)(chicken 00:00:00 [place] M edical pox) Branch TDAP 2011-01-22 Completed University of 00:00:00 [facility] TDAP 2011-01-22 Completed University of 00:00:00 [facility] TDAP 2011-01-22 Completed University of 00:00:00 [facility] TDAP 2011-01-22 Completed University of 00:00:00 [facility] TDAP 2011-01-22 Completed University of 00:00:00 [place] [facility] TDAP 2011-01-22 Completed University of 00:00:00 [place] [facility] TDAP 2011-01-22 Completed University of 00:00:00 [place] [facility] TDAP 2011-01-22 Completed University of 00:00:00 [place] [facility] TDAP 2011-01-22 Completed University of 00:00:00 [place] [facility] TDAP 2011-01-22 Completed University of 00:00:00 [facility] Vital Signs Vital Name Observation Time Observation Value Comments Source Systolic blood 2022-07-05 00:15:00 122 mm[Hg] Univer sity of pressure [facility] Diastolic blood 2022-07-05 00:15:00 76 mm[Hg] Unive rsity of pressure [facility] Heart rate 2022-07-05 00:15:00 91 /min Universi ty of [facility] Body temperature 2022-07-05 00:15:00 37 [facility]05 00:15:00 16 /[facility] Body height 2022-07-05 00:15:00 162.6 cm Universi ty of [facility] Body weight 2022-07-05 00:15:00 95.255 kg Universi ty of [facility] BMI 2022-07-05 00:15:00 36.05 kg/m2 Universi ty [facility] Oxygen saturation in 2022-07-05 00:15:00 100 /min [facility] Arterial blood by [facility] Pulse oximetry Branch Systolic blood 2022-06-24 01:08:13 171 mm[Hg] Univer sity of pressure [facility] Diastolic blood 2022-06-24 01:08:13 100 mm[Hg] Unive rsity of pressure [facility] Heart rate 2022-06-24 01:06:00 103 /min Universi ty of [facility] Body temperature 2022-06-24 01:06:00 37.11 Daja Univ ersity [facility] Respiratory rate 2022-06-24 01:06:00 18 /min Univ ersity [facility] Body height 2022-06-24 01:06:00 162.6 cm Universi ty of [facility] Body weight 2022-06-24 01:06:00 96.616 kg Universi ty of [facility] BMI 2022-06-24 01:06:00 36.56 kg/m2 Universi ty of [place] [facility] Oxygen saturation in 2022-06-24 01:06:00 99 /min University of Arterial blood by [facility] Pulse oximetry Branch Systolic blood 2022-06-02 00:27:00 141 mm[Hg] Univer sity of pressure [place] [facility] Diastolic blood 2022-06-02 00:27:00 60 mm[Hg] Unive rsity of pressure [place] [facility] Heart rate 2022-06-02 00:27:00 105 /min Universi ty of [place] [facility] Body temperature 2022-06-02 00:27:00 37 Daja Univ ersity of [place] [facility] Respiratory rate 2022-06-02 00:27:00 18 /min Univ ersity of [place] [facility] Body weight 2022-06-02 00:27:00 85.276 kg Universi ty of [place] [facility] BMI 2022-06-02 00:27:00 32.27 kg/m2 Universi ty of [place] [facility] Oxygen saturation in 2022-06-02 00:27:00 99 /min University of Arterial blood by [facility] Pulse oximetry Branch Systolic blood 2020-11-05 05:50:00 136 mm[Hg] Univer sity of pressure [place] [facility] Diastolic blood 2020-11-05 05:50:00 88 mm[Hg] Unive rsity of pressure [place] [facility] Heart rate 2020-11-05 05:50:00 85 /min Universi ty of [place] [facility] Respiratory rate 2020-11-05 05:50:00 20 /min Univ ersity of [place] [facility] Oxygen saturation in 2020-11-05 05:50:00 100 /min University of Arterial blood by [facility] Pulse oximetry Branch Body temperature 2020-11-05 02:15:00 37.39 Daja Univ ersity of [place] [facility] Body height 2020-11-05 02:15:00 162.6 cm Universi ty of [place] [facility] Body weight 2020-11-05 02:15:00 85.276 kg Universi ty of [place] [facility] BMI 2020-11-05 02:15:00 32.27 kg/m2 Universi ty of [place] [facility] Systolic blood 2020-11-03 20:53:00 134 mm[Hg] Univer sity of pressure [place] [facility] Diastolic blood 2020-11-03 20:53:00 70 mm[Hg] Unive rsity of pressure [place] [facility] Heart rate 2020-11-03 20:53:00 91 /min Universi ty of [place] [facility] Body temperature 2020-11-03 20:53:00 37.22 Daja Univ ersity of [place] [facility] Respiratory rate 2020-11-03 20:53:00 14 /min Univ ersity of [place] [facility] Body weight 2020-11-03 20:53:00 90.719 kg Universi ty of [place] [facility] BMI 2020-11-03 20:53:00 34.33 kg/m2 Universi ty of [place] [facility] Oxygen saturation in 2020-11-03 20:53:00 99 /min University of Arterial blood by [facility] Pulse oximetry Branch Systolic blood 2020-04-22 17:00:00 115 mm[Hg] Univer sity of pressure [place] [facility] Diastolic blood 2020-04-22 17:00:00 78 mm[Hg] Unive rsity of pressure [place] [facility] Heart rate 2020-04-22 17:00:00 79 /min Universi ty of [place] [facility] Respiratory rate 2020-04-22 17:00:00 18 /min Univ ersity of [place] [facility] Oxygen saturation in 2020-04-22 17:00:00 97 /min University of Arterial blood by [facility] Pulse oximetry Branch Body temperature 2020-04-22 15:03:42 37.06 Daja Univ ersity of [place] [facility] Body weight 2020-04-22 14:06:00 90.719 kg Universi ty of [place] [facility] BMI 2020-04-22 14:06:00 34.33 kg/m2 Universi ty of [place] [facility] Systolic blood 2020-04-22 17:00:00 115 mm[Hg] Univer sity of pressure [place] [facility] Diastolic blood 2020-04-22 17:00:00 78 mm[Hg] Unive rsity of pressure [place] [facility] Heart rate 2020-04-22 17:00:00 79 /min Universi ty of [place] [facility] Respiratory rate 2020-04-22 17:00:00 18 /min Univ ersity of [place] [facility] Oxygen saturation in 2020-04-22 17:00:00 97 /min University Arterial blood by [facility] Pulse oximetry Branch Body temperature 2020-04-22 15:03:42 37.06 Daja [facility] [place] Body weight 2020-04-22 14:06:00 90.719 kg [facility] Medical Branch BMI 2020-04-22 14:06:00 34.33 kg/m2 [facility] Medical [place] Procedures Procedure Date / Time Performed Performing Clinician Rolanda e CONSENT/REFUSAL FOR 2022-07-05 00:13:23 Doctor Unassigned, No Un iversity of [place] DIAGNOSIS AND Name Medical Branch TREATMENT CONSENT/REFUSAL FOR 2022-06-24 01:03:56 Doctor Unassigned, No Un iversity of [place] DIAGNOSIS AND Name Medical Branch TREATMENT NOTICE OF PRIVACY 2022-06-07 04:06:27 [facility] CONSENT/REFUSAL FOR 2022-06-07 04:06:00 Doctor Unassigned, No Un iversity of [place] DIAGNOSIS AND Name Medical Branch TREATMENT CONSENT/REFUSAL FOR 2022-06-02 00:14:50 Doctor Unassigned, No Un iversity of [place] DIAGNOSIS AND Name Medical Branch TREATMENT COMP. METABOLIC PANEL 2020-11-05 03:28:00 Lashawn Sun [facility] ([id number]) Medical Branch CBC WITH DIFF 2020-11-05 03:28:00 Lashawn Sun [facility] URINALYSIS 2020-11-05 03:28:00 Lashawn Sun [facility] NOTICE OF PRIVACY 2020-11-05 02:00:38 Doctor Unassigned, No Univ ersity [facility] [place] [facility] Name Medical Branch CONSENT/REFUSAL FOR 2020-11-05 02:00:15 Doctor Unassigned, No Un iversity of [place] DIAGNOSIS AND Name Medical Branch TREATMENT NOTICE OF PRIVACY 2020-11-03 20:36:23 [facility] CONSENT/REFUSAL FOR 2020-11-03 20:35:15 Doctor Unassigned, No Un iversity of [place] DIAGNOSIS AND Name Medical Branch TREATMENT CT ABDOMEN PELVIS WO 2020-04-22 14:46:[address] [facility] POCT TEST 2020-04-22 14:25:00 Abbe Obregoni ty [facility] COMP. METABOLIC PANEL 2020-04-22 14:24:00 Abbe Obregon [facility] ([id number]) [facility] CBC WITH DIFF 2020-04-22 14:24:00 Singer [facility] URINALYSIS 2020-04-22 14:24:00 Singer [facility] NOTICE OF PRIVACY 2020-04-22 13:57:03 Doctor Unassigned, No Univ [facility] PRACTICES Name [facility] CONSENT/REFUSAL FOR 2020-04-22 13:56:47 Doctor Unassigned, No [facility] DIAGNOSIS AND Name [facility] TREATMENT Encounters Start End Encounter Admission Attending Care Care Encounter Source Date/Time Date/Time Type Type Clinicians Facility Department ID 2022-07-04 2022-07-04 Emergency X RIDSTACI, [facility] ERT [id number] Univers 19:18:00 19:53:00 TRANG becerra [facility] 2022-07-04 2022-07-04 Emergency [place], [facility] [id number] Univers 19:18:00 19:53:00 Trang [place] [id number] ity [facility] [id number] [facility] [id number] [address] 2022-06-23 2022-06-23 Emergency X [facility] ERT [id number] Univers 20:11:00 20:32:00 ABBE vu [facility] 2022-06-23 2022-06-23 Emergency [facility] [id number] Univers 20:11:00 20:32:00 Abbe [place] [id number] i ty [facility] [id number] [facility] [id number] [address] 2022-06-06 2022-06-06 Emergency X LEILA, [facility] ERT [id number] Univers 22:16:00 22:30:00 DOUG vu [facility] 2022-06-06 2022-06-06 Emergency [facility] [id number] Univers 22:16:00 22:30:00 Doug [place] [id number] i ty of [place] [id number] [facility] [id number] [address] 2022-06-01 2022-06-01 Emergency [facility] [id number] Univers 18:29:00 18:46:00 МАРИЯ ity of [facility] 2022-06-01 2022-06-01 [facility] [id number] Univers 18:29:00 18:46:00 Мария [place] [id number] ity of [place] [id number] [facility] [id number] [address] 2020-11-04 2020-11-05 Emergency Harika Middleton [facility] [id number] Univers 21:22:00 00:55:00 Keyonna [place] [id number] i ty of [place] [id number] [facility] [id number] [address] 2020-11-04 2020-11-04 Emergency X Harika MIDDLETON [facility] ERT [id number] Univers 21:22:00 21:22:00 ity of [facility] 2020-11-03 2020-11-03 [facility] [id number] Univers 15:54:00 17:59:00 Alejandro [id number] i ty of [place] [id number] [facility] [id number] [address] 2020-11-03 2020-11-03 Emergency X [facility] ERT [id number] Univers 15:35:00 15:35:00 ity of [facility] 2020-11-03 2020-11-03 Orders Doctor [place] [id number] Univers 00:00:00 00:00:00 Only Unassigned, CHANEL [id number] ity of [facility] [id number] Bill as [id number] [address] 2020-04-22 2020-04-22 Emergency [place], [facility] [id number] 08:09:00 11:33:00 Abbe Alejandro [id number] [place] [id number] [place] [id number] [facility] 2020-04-22 2020-04-22 Emergency [place], [facility] [id number] Univers 08:09:00 11:33:00 Abbe [place] [id number] i ty of [place] [id number] [place] [facility] [id number] [address] 2020-04-22 2020-04-22 Emergency X [facility] ERT [id number] Univers 07:58:00 07:58:00 ity of [facility] 2020-04-22 2020-04-22 Orders Doctor [place] [id number] 00:00:00 00:00:00 Only Unassigned, CHANEL [id number] [facility] 4.2.7.2.686 [id number] 2020-04-22 2020-04-22 Orders Doctor [place] [id number] Univers 00:00:00 00:00:00 Only Unassigned, CHANEL [id number] ity of [facility] 4.2.7.2.686 Bill as [id number] [address] 2019-12-15 2019-12-15 Letter Doctor [place] [id number] 00:00:00 00:00:00 (Out) Unassigned, CHANEL [id number] [facility] [id number] [id number] 2019-12-15 2019-12-15 Letter Doctor [place] Mckeon2.840.114 [id number] Univers 00:00:00 00:00:00 (Out) Unassigned, CHANEL [id number] ity of [facility] [id number] Bill as [id number] [address] Results Test Description Test Time Test Comments Results Result Comments Source URINALYSIS 2020-11-05 04:15:11 Test Item Value Reference Range Interpretation Comme nts APPEARANCE (test code = Hazy Clear A [id number]) COLOR (test code = 4359676801) Anai Yellow A PH (test code = 8682724147) 4.8-8.0 SP GRAVITY (test code = 1.003-1.030 0088070007) GLU U QUAL (test code = Normal Normal [id number]) BLOOD (test code = 7281181972) Negative Negative KETONES (test code = 0564762245) 5 mg/dL Negative A PROTEIN (test code = 2887-8) 30 mg/dL Negative A UROBILIN (test code = Normal Normal 1615982345) BILIRUBIN (test code = Negative Negative 0994540083) NITRITE (test code = 3181514343) Negative Negative LEUK VERNA (test code = Negative Negative 5151555805) RBC/HPF (test code = 8545418555) See_Comment [Automated message] The system which ge nerated this result transmit nessa reference range: 0 - 3 HP F. The reference range was not used to interpret th is result as normal/abnormal . WBC/HPF (test code = 6733046250) See_Comment [Automated message] The system which ge nerated this result transmit nessa reference range: 0 - 5 HP F. The reference range was not used to interpret th is result as normal/abnormal . BACTERIA (test code = Moderate Negative A 0859566092) MUCOUS (test code = 1259051837) Marked Negative LPF A SQ EPITH (test code = HPF 0273243733) HYAL CAST (test code = See_Comment H [Aut omated message] The 6885224638) system which ge nerated this result transmit nessa reference range: <=2 LPF. The reference range was not u sed to interpret this result as normal/abnormal . TRANS EPI (test code = <1 See_Comment [Aut omated message] The 1518678905) system which ge nerated this result transmit nessa reference range: <=1 HPF. The reference range was not u sed to interpret this result as normal/abnormal . Lab Interpretation (test code = Abnormal 48828-6) [facility]. METABOLIC PANEL ([id number])2020-11-05 04:11:13 Test Item Value Reference Range Interpretation Comments NA (test code = 138 mmol/L 135-145 1397584743) K (test code = 3.6 mmol/L 3.5-5.0 8035369802) CL (test code = 102 mmol/L 98-108 1857076919) CO2 TOTAL (test code = 27 mmol/L 23-31 7825728581) AGAP (test code = 2-16 5927445630) BUN (test code = 16 mg/dL 7-23 7482057111) GLUCOSE (test code = 75 mg/dL 70-110 4928755322) CREATININE (test code = 1.11 mg/dL 0.50-1.04 H 9640907531) TOTAL BILI (test code = 0.3 mg/dL 0.1-1.3 1686282514) CALCIUM (test code = 9.5 mg/dL 8.6-10.6 2983471099) T PROTEIN (test code = 7.2 g/dL 6.3-8.2 9484530497) ALBUMIN (test code = 4.2 g/dL 3.5-5.0 1938100675) ALK PHOS (test code = 62 U/L 34-122 4684305620) ALTv (test code = 17 U/L 5-35 1742-6) AST(SGOT) (test code = 29 U/L 13-40 7868905228) eGFR (test code = mL/min/1.73m2 2883314073) EDGAR (test code = EDGAR) Association of [...] tests). Lab Interpretation Abnormal (test code = 88609-7) [facility] WITH [id number] 03:40:30 Test Item Value Reference Range Interpretation Comments WBC (test code = See_Comment [Automated 9930-2) message] The sy stem which generated this result transmitted reference range : 4.30 - 11.10 10*3/?L. The reference range was not used to interpret this result as normal/abnormal . RBC (test code = See_Comment [Automated 729-8) message] The sy stem which generated this [...] RDW-SD (test code = 42.9 fL 39.0-49.9 35888-9) RDW-CV (test code = 12.9 % 12.0-15.5 788-0) PLT (test code = See_Comment [Automated 517-3) message] The sy stem which generated this result transmitted reference range : 166 - 358 10*3/ ?L. The reference r larry was not used to interpret this result as normal/abnormal . MPV (test code = 9.4 fL 9.5-12.9 L 48641-7) NRBC/100 WBC (test See_Comment [Automat ed code = 0080039729) message] The system which generated this result transmitted reference range : 0.0 - 10.0 /100 WBCs. The refer ence range was not u sed to interpret th is result as normal/abnormal . NRBC x10^3 (test code <0.01 See_Comment [Auto mated = 1147352969) message] The s ystem which generated this result transmitted reference range : 10*3/?L. The reference range was not used to interpret this result as normal/abnormal . GRAN MAT (NEUT) % 56.1 % (test code = 770-8) IMM GRAN % (test code 0.20 % = 5455907912) LYMPH % (test code = 32.7 % 736-9) MONO % (test code = 9.0 % 5905-5) EOS % (test code = 1.6 % 713-8) BASO % (test code = 0.4 % 706-2) GRAN MAT x10^3(ANC) 5.02 10*3/uL 1.88-7.09 (test code = 2333251632) IMM GRAN x10^3 (test <0.03 0.00-0.06 code = 6253277924) LYMPH x10^3 (test code 2.93 10*3/uL 1.32-3.29 = 731-0) MONO x10^3 (test code 0.81 10*3/uL 0.33-0.92 = 742-7) EOS x10^3 (test code = 0.14 10*3/uL 0.03-0.39 711-2) BASO x10^3 (test code 0.04 10*3/uL 0.01-0.07 = 704-7) Lab Interpretation Abnormal (test code = 10853-0) [facility] WITH [id number] 15:23:00 Test Item Value Reference Range Interpretation Comments WBC (test code = See_Comment H [Automated 6690-2) message] The sy stem which generated this result transmitted reference range : 4.30 - 11.10 10*3/?L. The reference range was not used to interpret this result as normal/abnormal . RBC (test code = See_Comment [Automated 789-8) message] The sy stem which generated this [...] RDW-SD (test code = 41.8 fL 39-49.9 15443-8) RDW-CV (test code = 12.3 % 12-15.5 788-0) PLT (test code = See_Comment [Automated 777-3) message] The sy stem which generated this result transmitted reference range : 166 - 358 10*3/ ?L. The reference r larry was not used to interpret this result as normal/abnormal . MPV (test code = 9.5 fL 9.5-12.9 56437-7) NRBC/100 WBC (test See_Comment [Automat ed code = 9619284717) message] The system which generated this result transmitted reference range : 0.0 - 10.0 /100 WBCs. The refer ence range was not u sed to interpret th is result as normal/abnormal . NRBC x10^3 (test code <0.01 See_Comment [Auto mated = 4950034256) message] The s ystem which generated this result transmitted reference range : 10*3/?L. The reference range was not used to interpret this result as normal/abnormal . GRAN MAT (NEUT) % 74.1 % (test code = 770-8) IMM GRAN % (test code 0.40 % = 3696568884) LYMPH % (test code = 13.0 % 736-9) MONO % (test code = 11.5 % 5905-5) EOS % (test code = 0.8 % 713-8) BASO % (test code = 0.2 % 706-2) GRAN MAT x10^3(ANC) 9.93 10*3/uL 1.88-7.09 H (test code = 4035829661) IMM GRAN x10^3 (test 0.06 10*3/uL 0-0.06 code = 9541735870) LYMPH x10^3 (test code 1.74 10*3/uL 1.32-3.29 = 731-0) MONO x10^3 (test code 1.55 10*3/uL 0.33-0.92 H = 742-7) EOS x10^3 (test code = 0.11 10*3/uL 0.03-0.39 711-2) BASO x10^3 (test code 0.03 10*3/uL 0.01-0.07 = 704-7) Lab Interpretation Abnormal (test code = 41168-6) [facility] [id number] 15:12:23CT Abdomen and Pelvis without contrast. CLINICAL [...] and urinalysisas well as blood test results. [facility], Radiant Results Inft User - 04/22/2020 [...] contrast. Lower lungs: Clear.Liver, Gallbladder and Spleen: Unremarkable.Peritoneum: No free air or free fluid. No lymphadenopathy.Pancreas [...] in the pelvis, most likelyphleboliths.. Vessels: Normal.Retroperitoneum: Noabnormal fluid or lymphadenopathy.Bowel: No acute findings. Normal [...] and urinalysisas well as blood test results. [facility]. METABOLIC PANEL (12878)2020-04-22 15:01:00 Test Item Value Reference Range Interpretation Comments NA (test code = 135 mmol/L 135-145 1595783061) K (test code = 3.6 mmol/L 3.5-5 2380084003) CL (test code = 103 mmol/L 98-108 5920464204) CO2 TOTAL (test code = 24 mmol/L 23-31 8180237484) AGAP (test code = 2-16 5240363656) BUN (test code = 9 mg/dL 7-23 0584526552) GLUCOSE (test code = 108 mg/dL 70-110 4724692770) CREATININE (test code 0.82 mg/dL 0.5-1.04 = 8436619299) TOTAL BILI (test code 0.5 mg/dL 0.1-1.1 = 2157504220) CALCIUM (test code = 9.1 mg/dL 8.6-10.6 1032105448) T PROTEIN (test code = 7.6 g/dL 6.3-8.2 5240356263) ALBUMIN (test code = 4.3 g/dL 3.5-5 7567181031) ALK PHOS (test code = 79 U/L 34-122 8350295078) ALTv (test code = 18 U/L 5-35 1742-6) AST(SGOT) (test code = 24 U/L 13-40 4770542742) eGFR Calculation mL/min/1.73m2 (Non-) (test code = 3118897048) eGFR Calculation mL/min/1.73m2 () (test code = 7497214248) EDGAR (test code = EDGAR) Association of [...] or urine or abnormalities in imaging tests). [facility] 14:59:00 Test Item Value Reference Range Interpretation Comments APPEARANCE (test code = Hazy Clear A 8029355458) COLOR (test code = Yellow Yellow 0093294806) PH (test code = 4.8-8.0 7138175552) SP GRAVITY (test code = 1.003-1.030 8680989702) GLU U QUAL (test code = Normal Normal 6666987820) BLOOD (test code = 1+ Negative A 7653861815) KETONES (test code = 5 mg/dL Negative A 1235529764) PROTEIN (test code = Negative Negative 2887-8) UROBILIN (test code = Normal Normal 8948561014) BILIRUBIN (test code = Negative Negative 6711370382) NITRITE (test code = Positive Negative A 5129429623) LEUK VERNA (test code = 25/uL Negative A 0995545163) RBC/HPF (test code = See_Comment [Autom ated message] 5335744544) The system [employer] generated this result transmitted ref erence range: 0 - 3 HP F. The reference range was not used to int erpret this result as normal/abnormal . WBC/HPF (test code = See_Comment H [Autom ated message] 1049916574) The system whic h generated this result transmitted ref erence range: 0 - 5 HP F. The reference range was not used to int erpret this result as normal/abnormal . BACTERIA (test code = Moderate Negative A 9605654234) MUCOUS (test code = Moderate Negative LPF A 1033388335) SQ EPITH (test code = HPF 7449534748) Lab Interpretation (test Abnormal code = 47540-0) [facility] [id number] 14:25:00 Test Item Value Reference Range Interpretation Comments POCT PREG (test code = 1605) negative On board controls acceptable with present C Line (test code = 3574) POCT PREG LOT # (test code = 3575) [id number] POCT PREG TEST DATE (test 2021-11-30 code = 3576) Lab Interpretation (test code = Normal 44376-4) [facility]"
--- NOTE | 2022-08-19 16:43 | ER ---
Nurse's Notes [facility] Name: Sharon Bee Age: 31 yrs Sex: Female : 1990 Arrival Date: 08/19/2022 Time: 15:53 Bed Waiting Private MD: Diagnosis: ED Course: 08/19 15:54 Patient arrived in ED. mr 15:59 [facility] 15:59 Doug Wilson MD is Attending Physician. [facility] 16:20 Patient's name was called from ER Figure 1. No response. 16:42 Patient's name was called from ER lobby. No response. Unable to locate patient. Will hb disposition as left without being seen by a provider. Administered Medications: No medications were administered Outcome: 16:42 Patient left the ED. hb Signatures: Cynthia Deng Enma Pritchard, RN RN Lianet Ramírez FNP FNP [facility]
--- NOTE | 2022-08-19 16:43 | EDPHYS ---
Physician Documentation [facility] Name: Sharon Bee Age: 31 yrs Sex: Female : 1990 Arrival Date: 08/19/2022 Time: 15:53 Bed Waiting Private MD: ED Physician Administered Medications: No medications were administered Disposition Summary: 08/19/22 16:42 Eloped Disposition: before being seen by provider hb Reason: unknown hb Signatures: Enma Pritchard RN RN Lianet Hernandez, GUN PROFILER GUN PROFILER [email or web address] Corrections: (The following items were deleted from the chart) 08/19 16:26 15:59 Patient medically screened. 7 jh7
== END 2022-08-19 16:42 | disposition left against medical advice (07) ==
LOC: ER 15:53
DX: Z02.9 Encounter for administrative examinations, unspecified (principal)

== ENCOUNTER 2022-08-20 11:27 | Emergency (ER) | payer SELFPAY ==
--- OUTSIDE RECORDS SUMMARY | 2022-08-20 11:31 | XMS REPORT | Continuity of Care Document ---
:1990 Author Organization [facility] Address [address] [place] [address] Care Team Providers Name Role Phone Pcp, [...] Harika MIDDLETON Attending Clinician Unavailable Doctor Unassigned, [place] Attending Clinician Unavailable Payers Payer Name Policy Type Policy Number Effective Date Expiration Date [facility] - [id number] 2013 00:00:00 OUT OF STATE Problems Condition [...] different from the original. 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 Marijuana . Positive drug screen in 2010 for THC Hepatitis Hepatitis Disease Active 2012-04 Uni vers C carrier C carrier 2- ity of 00:00: [place] 00 Medical Branch Generalize Generalize Disease Active 2012-04 U nivers d anxiety d anxiety 05-25 ity of disorder disorder 00:00: 00 Medical Branch High-risk High-risk Disease Active 2012-04 Overview: Univers 05-25 Formattin i ty of 00:00: g of this [place] note Medical might be Branch different from the original. ICD10 Diagnosis Term Medical Administrative Assistant Utility Allergies, Adverse Reactions, Alerts Allergy Allergy Status Severity Reaction(s) Onset Inactive Treating Comm ents Source Name Type Date Date Clinician NO KNOWN Drug Active Univers ALLERGIE Class ity of S [facility] Social History Social Habit Start Date Stop Date Quantity Comments Source History of Current smoker University of tobacco use [facility] Exposure to 2022-06-24 2022-07-04 Not sure University SARS-CoV-2 00:00:00 19:15:00 [facility] (event) Branch Alcohol intake 2022-07-04 2022-07-04 Current University of 00:00:00 00:00:00 non-drinker of [facility] alcohol (finding) Branch Tobacco use and 2013-03-24 2013-03-24 Smokeless tobacco Un iversity of exposure 00:00:00 00:00:00 non-user [facility] Tobacco Comment 2013-03-24 2013-03-24 states she only Univ ersity of 00:00:00 00:00:00 smoked once a [place] [facility] week ago and has Branch stopped. states only time she smoked Sex Assigned At [birth year] Universit y of 00:00:00 00:00:00 [facility] Smoking Status Start Date Stop Date Source Ex-smoker 2013-03-24 00:00:00 2013-03-24 00:00:[facility] Medical Branch Medications Ordered Filled Start Stop Current Ordering Indication Dosage Frequency Signature Comments Components Source Medication Medication Date Date Medication? Clinician (SIG) Name Name predniSONE 2022- No 60mg 60 mg, Univ ers (DELTASONE) [id number] Oral, ity of tablet 60 00:45: 00:47 ONCE, 1 [place] mg 00 :00 dose, On Sun07/04/22 Branch at 1945, MICHELLE valACYclovi 2022- Yes [id number] 1g Take 1 Univers r 1 gram 07-04 tablet by ity o f tablet 00:00: 04:59 mouth in [place] 00 :00 the Medical morning Branch and 1 tablet at noon and 1 tablet in the evening. Do all this for 7 days. predniSONE 2022- Yes [id number] 40mg Take 2 Univers 20 mg 07-04- tablets by ity of tablet 00:00: 04:59 mouth in [place] 00 :00 the Medical morning Branch for 4 days. terbinafine 2022-0 Yes [id number] Apply to Univers HCL 1 % 3-02 area(s) 2 ity of cream 00:00: (two) [place] 00 times Medical daily. Branch terbinafine 2022-0 Yes [id number] 250mg Take 1 Univers HCL 250 mg 3-02 tablet by ity of tablet 00:00: mouth in [place] 00 the Medical morning. Branch terbinafine 2022-0 Yes [id number] Apply to Univers HCL 1 % 3-02 area(s) 2 ity of cream 00:00: (two) [place] 00 times Medical daily. Branch terbinafine 2022-0 Yes [id number] 250mg Take 1 Univers HCL 250 mg 3-02 tablet by ity of tablet 00:00: mouth in [place] 00 the Medical morning. Branch terbinafine 2022-0 Yes [id number] Apply to Univers HCL 1 % 3-02 area(s) 2 ity of cream 00:00: (two) [place] 00 times Medical daily. Branch terbinafine 2022-0 Yes [id number] 250mg Take 1 Univers HCL 250 mg 3-02 tablet by ity of tablet 00:00: mouth in [place] 00 the Medical morning. Branch terbinafine Yes [id number] Apply to Univers HCL 1 % 3-02 area(s) 2 ity of cream 00:00: (two) [place] 00 times Medical daily. Branch terbinafine Yes [id number] 250mg Take 1 Univers HCL 250 mg 3-02 tablet by ity of tablet 00:00: mouth in [place] 00 the Medical morning. Branch amoxicillin 2020- No 500mg Take 500 Univers (TRIMOX) 8 08-05 mg by ity of 500 mg 02:18: 00:00 mouth 3 [place] capsule 27 :00 (three) Medical times Branch daily. ALPRAZolam 2020- No .5mg Take 0.5 Un deangelo (XANAX) 0.5 11-05 08-05 mg by ity of mg tablet 02:18: 00:00 mouth 2 [place] 21 :00 (two) Medical times Branch daily. acetaminoph No 650mg Take 650 Univers en 11-05 08-05 mg by ity of (TYLENOL) 02:18: 00:00 mouth [place] 325 mg 18 :00 every 6 Medical tablet (six) Branch hours as needed. ketorolac No 30mg 30 mg, Unive rs (TORADOL) 04-22 Slow IV ity of injection 18:00: 17:59 Push, Q6H, [place] 30 mg 00 :00 4 doses, Medical First dose Branch on Basia 04/22/20 at 1200, Last dose on Sun04/23/20 at 0600, Routine cefTRIAXone No 2000mg 2,000 mg, Univers (ROCEPHIN) 04-22 IV ity of 2,000 mg in 17:15: 16:56 Piggyback, [place] NaCl 0.9% 00 :00 ONCE, 1 Medical (NS) 100 mL dose, [facility] MINI-BAG 04/22/20 at 1115, 100 mL
Reas [...] 04/22/20 at Branch 0830, Routine ondansetron Yes [id number] 4mg Take 1 Univers 4 mg -21 tablet by ity of disintegrat 00:00: mouth [place] ing tablet 00 every 8 Medica l (eight) Branch hours as needed for Nausea and Vomiting (N/V). ondansetron Yes [id number] 4mg Take 1 Univers 4 mg -21 tablet by ity of disintegrat 00:00: mouth [place] ing tablet 00 every 8 Medica l (eight) Branch hours as needed for Nausea and Vomiting (N/V). ondansetron Yes [id number] 4mg Take 1 Univers 4 mg -21 tablet by ity of disintegrat 00:00: mouth [place] ing tablet 00 every 8 Medica l (eight) Branch hours as needed for Nausea and Vomiting (N/V). ondansetron 2020- No [id number] 4mg Take 1 Univers 4 mg 04-22 08-05 tablet by ity of disintegrat 00:00: 00:00 [place] tablet 00 :00 every 8 Medica l (eight) Branch hours as needed for Nausea and Vomiting (N/V). sulfamethox 2020- No [id number] 1{tbl} Take 1 Univers azole-trime - 02-05 [...] ity of mg tablet 16:14: mouth 2 [place] 46 (two) Medical times Branch daily. ALPRAZolam 2012-04 Yes .5mg Take 0.5 Uni vers (XANAX) 0.5 2-23 mg by ity of mg tablet 16:14: mouth 2 [place] 46 (two) Medical times Branch daily. ALPRAZolam 2012-04 Yes .5mg Take 0.5 Uni vers (XANAX) 0.5 2-23 mg by ity of mg tablet 16:14: mouth 2 [place] 46 (two) Medical times Branch daily. ALPRAZolam 2012-04 Yes .5mg Take 0.5 Uni vers (XANAX) 0.5 2-23 mg by ity of mg tablet 16:14: mouth 2 [place] 46 (two) Medical times Branch daily. ALPRAZolam 2012-04 Yes .5mg Take 0.5 Uni vers (XANAX) 0.5 2-23 mg by ity of mg tablet 16:14: mouth 2 [place] 46 (two) Medical times Branch daily. amoxicillin [...] (three) Medical times Branch daily. 2012-04 Yes [id number] 1{tbl} Take 1 Tab Univers multivitami 2-23 by mouth ity of n ( 00:00[place]. [place] VITAMIN[place] 00 Medical tablet Branch 2012-04 Yes [id number] 1{tbl} Take 1 Tab Univers multivitami 2-23 by mouth ity of n ( 00:00: daily. [place] VITAMIN) 00 Medical tablet Branch 2012-04 Yes [id number] 1{tbl} Take 1 Tab Univers multivitami 2-23 by mouth ity of n ( 00:00: daily. [place] VITAMIN[place] 00 Medical tablet Branch 2012-04 Yes [id number] 1{tbl} Take 1 Tab Univers multivitami 2-23 by mouth ity of n ( 00:00: daily. [place] VITAMIN) 00 Medical tablet Branch 2012-04 Yes [id number] 1{tbl} Take 1 Tab Univers multivitami 2-23 by mouth ity of n ( 00:00: daily. [place] VITAMIN[place] 00 Medical tablet Branch 2012-04- No [id number] 1{tbl} Take 1 Tab Univers multivitami 2-23 08-05 by mouth ity of n ( 00:00: 00:00 daily. Bill as VITAMIN) 00 :00 Medical tablet Branch Immunizations Ordered Filled Immunization Date Status Comments [facility] e Immunization Name Name Rubella 2011-03-11 Completed [facility] 00:00:00 [facility] Varicella 2011-03-11 Completed [facility] (varivax)(chicken 00:00:00 [place] M edical pox) Branch Rubella 2011-03-11 Completed University of 00:00:00 [facility] Varicella 2011-03-11 Completed University of (varivax)(chicken 00:00:00 [place] M edical pox) Branch Rubella 2011-03-11 Completed University of 00:00:00 [facility] Varicella 2011-03-11 Completed University of (varivax)(chicken 00:00:00 [place] M edical pox) Branch Rubella 2011-03-11 Completed University of 00:00:00 [facility] Varicella 2011-03-11 Completed University of (varivax)(chicken 00:00:00 [place] M edical pox) Branch Rubella 2011-03-11 Completed University of 00:00:00 [facility] Varicella 2011-03-11 Completed University of (varivax)(chicken 00:00:00 [place] M edical pox) Branch Rubella 2011-03-11 Completed University of 00:00:00 [facility] Varicella 2011-03-11 Completed University of (varivax)(chicken 00:00:00 [place] M edical pox) Branch Rubella 2011-03-11 Completed University of 00:00:00 [facility] Varicella 2011-03-11 Completed University of (varivax)(chicken 00:00:00 [place] M edical pox) Branch Rubella 2011-03-11 Completed University of 00:00:00 [facility] Varicella 2011-03-11 Completed University of (varivax)(chicken 00:00:00 [place] M edical pox) Branch Rubella 2011-03-11 Completed University of 00:00:00 [facility] Varicella 2011-03-11 Completed University of (varivax)(chicken 00:00:00 [place] M edical pox) Branch Rubella 2011-03-11 Completed University of 00:00:00 [facility] Varicella 2011-03-11 Completed University of (varivax)(chicken 00:00:00 [place] M edical pox) Branch TDAP 2011-01-22 Completed University of 00:00:00 [facility] TDAP 2011-01-22 Completed University of 00:00:00 [facility] TDAP 2011-01-22 Completed University of 00:00:00 [facility] TDAP 2011-01-22 Completed University of 00:00:00 [facility] TDAP 2011-01-22 Completed University of 00:00:00 [place] [facility] TDAP 2011-01-22 Completed University of 00:00:00 [place] [facility] TDAP 2011-01-22 Completed University of 00:00:00 [place] [facility] TDAP 2011-01-22 Completed University of 00:00:00 [place] [facility] TDAP 2011-01-22 Completed University of 00:00:00 [place] [facility] TDAP 2011-01-22 Completed University of 00:00:00 [facility] Vital Signs Vital Name Observation Time Observation Value Comments Source Systolic blood 2022-07-05 00:15:00 122 mm[Hg] Univer sity of pressure [facility] Diastolic blood 2022-07-05 00:15:00 76 mm[Hg] Unive rsity of pressure [facility] Heart rate 2022-07-05 00:15:00 91 /min Universi ty of [facility] Body temperature 2022-07-05 00:15:00 37 [facility]aja [facility] 2022-07-05 00:15:00 16 /min Univ ersity [facility] Body height 2022-07-05 00:15:00 162.6 cm Universi ty of [facility] Body weight 2022-07-05 00:15:00 95.255 kg Universi ty of [facility] BMI 2022-07-05 00:15:00 36.05 kg/m2 Universi ty [facility] Oxygen saturation in 2022-07-05 00:15:00 100 /min [facility] Arterial blood by [facility] Pulse oximetry Branch Systolic blood 2022-06-24 01:08:13 171 mm[Hg] Univer sity of pressure [facility] Diastolic blood 2022-06-24 01:08:13 100 mm[Hg] Unive rsity of pressure [facility] Heart rate 2022-06-24 01:06:00 103 /min Universi ty of [facility] Body temperature 2022-06-24 01:06:[address] [facility] Respiratory rate 2022-06-24 01:06:00 18 /min Univ ersity of [facility] Body height 2022-06-24 01:06:00 162.6 cm Universi ty of [facility] Body weight 2022-06-24 01:06:00 96.616 kg Universi ty of [place] [facility] BMI 2022-06-24 01:06:00 36.56 kg/m2 Universi ty of [place] [facility] Oxygen saturation in 2022-06-24 01:06:00 99 /min University of Arterial blood by [place] [facility]i emily Pulse oximetry Branch Systolic blood 2022-06-02 00:27:00 141 mm[Hg] Univer sity of pressure [place] [facility] Diastolic blood 2022-06-02 00:27:00 60 mm[Hg] Unive rsity of pressure [place] [facility] Heart rate 2022-06-02 00:27:00 105 /min Universi ty of [place] [facility] Body temperature 2022-06-02 00:27:00 37 Daja Univ ersity of [place] [facility] Respiratory rate 2022-06-02 00:27:00 18 /min Univ ersity of [place] [facility] Body weight 2022-06-02 00:27:00 85.276 kg Universi ty of [place] [facility] BMI 2022-06-02 00:27:00 32.27 kg/m2 Universi ty of [place] [facility] Oxygen saturation in 2022-06-02 00:27:00 99 /min University of Arterial blood by [facility] emily Pulse oximetry Branch Systolic blood 2020-11-05 05:50:00 136 mm[Hg] Univer sity of pressure [place] [facility] Diastolic blood 2020-11-05 05:50:00 88 mm[Hg] Unive rsity of pressure [place] [facility] Heart rate 2020-11-05 05:50:00 85 /min Universi ty of [place] [facility] Respiratory rate 2020-11-05 05:50:00 20 /min Univ ersity of [place] [facility] Oxygen saturation in 2020-11-05 05:50:00 100 /min University of Arterial blood by [place] Medi emily Pulse oximetry Branch Body temperature 2020-11-05 02:15:00 37.39 Daja Univ ersity of [place] [facility] Body height 2020-11-05 02:15:00 162.6 cm Universi ty of [place] [facility] Body weight 2020-11-05 02:15:00 85.276 kg Universi ty of [place] [facility] BMI 2020-11-05 02:15:00 32.27 kg/m2 Universi ty of [place] [facility] Systolic blood 2020-11-03 20:53:00 134 [...] 99 /min University of Arterial blood by [facility] emily Pulse oximetry Branch Systolic blood 2020-04-22 17:00:00 [...] 97 /min University of Arterial blood by [facility] Pulse oximetry Branch Body temperature 2020-04-22 15:03:42 [...] 17:00:00 97 /min University Arterial blood by [facility] Pulse oximetry Branch Body temperature 2020-04-22 15:03:42 37.06 Daja [facility] Body weight 2020-04-22 14:06:00 90.719 kg [facility] BMI 2020-04-22 14:06:00 34.33 kg/m2 [facility] Procedures Procedure Date / Time Performed Performing Clinician Sour e CONSENT/REFUSAL FOR 2022-07-05 00:13:23 Doctor Unassigned, No Un iversity of [place] DIAGNOSIS AND Name Medical Branch TREATMENT CONSENT/REFUSAL FOR 2022-06-24 01:03:56 Doctor Unassigned, No Un iversity of [place] DIAGNOSIS AND Name Medical Branch TREATMENT NOTICE OF PRIVACY 2022-06-07 04:06:27 [facility], [facility] CONSENT/REFUSAL FOR 2022-06-07 04:06:00 Doctor Unassigned, No Un iversity of [place] DIAGNOSIS AND Name Medical Branch TREATMENT CONSENT/REFUSAL FOR 2022-06-02 00:14:50 Doctor Unassigned, No Un iversity of [place] DIAGNOSIS AND Name Medical Branch TREATMENT COMP. METABOLIC PANEL 2020-11-05 03:28:00 Lashawn Sun [facility] ([id number]) Medical Branch CBC WITH DIFF 2020-11-05 03:28:00 Lashawn Sun [facility] URINALYSIS 2020-11-05 03:28:00 Lashawn Sun [facility] NOTICE OF PRIVACY 2020-11-05 02:00:38 Doctor Unassigned, No Univ ersity of [facility] Name Medical Branch CONSENT/REFUSAL FOR 2020-11-05 02:00:15 Doctor Unassigned, No Un iversity of [place] DIAGNOSIS AND Name Medical Branch TREATMENT NOTICE OF PRIVACY 2020-11-03 20:36:23 Doctor Unassigned, No Univ ersity [facility] Name Medical Branch CONSENT/REFUSAL FOR 2020-11-03 20:35:15 Doctor Unassigned, No Un iversity of [place] DIAGNOSIS AND Name Medical Branch TREATMENT CT ABDOMEN PELVIS WO 2020-04-22 14:46:00 Abbe Obregon ity [facility] POCT TEST 2020-04-22 14:25:[address] [facility] COMP. METABOLIC PANEL 2020-04-22 14:24:00 Abbe Obregon [facility] ([id number]) [facility] CBC WITH DIFF 2020-04-22 14:24:00 [place], [facility] URINALYSIS 2020-04-22 14:24:00 Singer [facility] NOTICE OF PRIVACY 2020-04-22 13:57:03 Doctor Unassigned, No Univ [facility] PRACTICES Name [facility] Branch CONSENT/REFUSAL FOR 2020-04-22 13:56:47 Doctor Unassigned, No [facility] DIAGNOSIS AND Name [facility] TREATMENT Encounters Start End Encounter Admission Attending Care Care Encounter Source Date/Time Date/Time Type Type Clinicians Facility Department ID 2022-07-04 2022-07-04 [id number] Univers 19:18:00 19:53:[address] [facility] 2022-07-04 2022-07-04 [facility] [id number] Univers 19:18:00 19:53:00 Trang [place] [id number] ity [facility] [id number] [facility] [id number] [address] 2022-06-23 2022-06-23 Emergency X [facility] ERT [id number] Univers 20:11:00 20:32:[address] [facility] 2022-06-23 2022-06-23 Emergency [facility] [id number] Univers 20:11:00 20:32:00 Abbe [place] [id number] i ty [facility] [id number] [facility] [id number] [address] 2022-06-06 2022-06-06 Emergency [facility] [id number] Univers 22:16:00 22:30:[address] [facility] 2022-06-06 2022-06-06 Emergency [facility] [id number] Univers 22:16:00 22:30:00 Doug [place] [id number] i ty of [place] [id number] [facility] [id number] [address] 2022-06-01 2022-06-01 Emergency [facility] [id number] Univers 18:29:00 18:46:[address] [facility] 2022-06-01 2022-06-01 Emergency [facility] [id number] Univers 18:29:00 18:46:00 Мария [place] [id number] ity of [place] [id number] [facility] [id number] [address] 2020-11-04 2020-11-05 Emergency Harika [place] [facility] [id number] Univers 21:22:00 00:55:00 Keyonna [place] [id number] i ty of [place] 4.2.7.2.686 [facility] [id number] [address] 2020-11-04 2020-11-04 Emergency X EMI, K [facility] ERT [id number] Univers 21:22:00 21:22:[address] [facility] 2020-11-03 2020-11-03 [facility] [id number] Univers 15:54:00 17:59:00 Alejandro [id number] i ty of [place] 4.2.7.2.686 [facility] [id number] [address] 2020-11-03 2020-11-03 Emergency X [facility] ERT [id number] Univers 15:35:00 15:35:[address] [facility] 2020-11-03 2020-11-03 Orders Doctor [place] [id number] Univers 00:00:00 00:00:00 Only Unassigned, CHANEL [id number] ity of [place] [facility] 4.2.7.2.686 Bill as [id number] [address] 2020-04-22 2020-04-22 Emergency [place], [facility] [id number] 08:09:00 11:33:00 Abbe [place] [id number] [place] 4.2.7.2.686 [place] [id number] [facility] 2020-04-22 2020-04-22 Emergency [place], [facility] [id number] [facility] 08:09:00 11:33:00 Abbe [place] [id number] i ty of [place] 4.2.7.2.686 [facility] [id number] [address] 2020-04-22 2020-04-22 Emergency X [facility] ERT [id number] Univers 07:58:00 07:58:00 ity of [facility] 2020-04-22 2020-04-22 Orders Doctor [place] [id number] 00:00:00 00:00:00 Only Unassigned, CHANEL [id number] [place] [facility] 4.2.7.2.686 [id number] 2020-04-22 2020-04-22 Orders Doctor [place] [id number] Univers 00:00:00 00:00:00 Only Unassigned, CHANEL [id number] ity of [place] [facility] 4.2.7.2.686 Bill as [id number] [address] 2019-12-15 2019-12-15 Letter Doctor [place] [id number] 00:00:00 00:00:00 (Out) Unassigned, CHANEL [id number] [place] [facility] [id number] [id number] 2019-12-15 2019-12-15 Letter Doctor [place] Mcmanus.[id number] Univers 00:00:00 00:00:00 (Out) Unassigned, CHANEL [id number] ity of [place] [facility] [id number] Bill as [id number] [address] Results Test Description Test Time Test Comments Results Result Comments Source URINALYSIS 2020-11-05 04:15:11 Test Item Value Reference Range Interpretation Comme nts APPEARANCE (test code = Hazy Clear A 8003145038) COLOR (test code = 1042335524) Anai Yellow A PH (test code = 2560955032) 4.8-8.0 SP GRAVITY (test code = 1.003-1.030 7391543887) GLU U QUAL (test code = Normal Normal 1322550695) BLOOD (test code = 7778036726) Negative Negative KETONES (test code = 9181579264) 5 mg/dL Negative A PROTEIN (test code = 2887-8) 30 mg/dL Negative A UROBILIN (test code = Normal Normal 6967130237) BILIRUBIN (test code = Negative Negative 8600936057) NITRITE (test code = 2909244228) Negative Negative LEUK VERNA (test code = Negative Negative 3204147038) RBC/HPF (test code = 5173511338) See_Comment [Automated message] The system which ge nerated this result transmit nessa reference range: 0 - 3 HP F. The reference range was not used to interpret th is result as normal/abnormal . WBC/HPF (test code = 7043803909) See_Comment [Automated message] The system which ge nerated this result transmit nessa reference range: 0 - 5 HP F. The reference range was not used to interpret th is result as normal/abnormal . BACTERIA (test code = Moderate Negative A 9096023442) MUCOUS (test code = 9871841636) Marked Negative LPF A SQ EPITH (test code = HPF 9509505413) HYAL CAST (test code = See_Comment H [Aut omated message] The 1224943901) system which ge nerated this result transmit nessa reference range: <=2 LPF. The reference range was not u sed to interpret this result as normal/abnormal . TRANS EPI (test code = <1 See_Comment [Aut omated message] The 3582233097) system which ge nerated this result transmit nessa reference range: <=1 HPF. The reference range was not u sed to interpret this result as normal/abnormal . Lab Interpretation (test code = Abnormal 30449-8) [facility]. METABOLIC PANEL (49506)2020-11-05 04:11:13 Test Item Value Reference Range Interpretation Comments NA (test code = 138 mmol/L 135-145 7633639722) K (test code = 3.6 mmol/L 3.5-5.0 6649482281) CL (test code = 102 mmol/L 98-108 3845460839) CO2 TOTAL (test code = 27 mmol/L 23-31 8955308259) AGAP (test code = 2-16 6296043669) BUN (test code = 16 mg/dL 7-23 7184588531) GLUCOSE (test code = 75 mg/dL 70-110 8079107405) CREATININE (test code = 1.11 mg/dL 0.50-1.04 H 7166942769) TOTAL BILI (test code = 0.3 mg/dL 0.1-1.0 3205008542) CALCIUM (test code = 9.5 mg/dL 8.6-10.6 5464870679) T PROTEIN (test code = 7.2 g/dL 6.3-8.2 5580663309) ALBUMIN (test code = 4.2 g/dL 3.5-5.0 4181914719) ALK PHOS (test code = 62 U/L 34-122 6274434984) ALTv (test code = 17 U/L 5-35 1742-6) AST(SGOT) (test code = 29 U/L 13-40 5145412469) eGFR (test code = mL/min/1.73m2 9149523479) EDGAR (test code = EDGAR) Association of [...] tests). Lab Interpretation Abnormal (test code = 00970-8) [facility] WITH [id number] 03:40:30 Test Item Value Reference Range Interpretation Comments WBC (test code = See_Comment [Automated 9087-2) message] The sy stem which generated this result transmitted reference range : 4.30 - 11.10 10*3/?L. The reference range was not used to interpret this result as normal/abnormal . RBC (test code = See_Comment [Automated 956-8) message] The sy stem which generated this [...] RDW-SD (test code = 42.9 fL 39.0-49.9 11573-9) RDW-CV (test code = 12.9 % 12.0-15.5 788-0) PLT (test code = See_Comment [Automated 617-3) message] The sy stem which generated this result transmitted reference range : 166 - 358 10*3/ ?L. The reference r larry was not used to interpret this result as normal/abnormal . MPV (test code = 9.4 fL 9.5-12.9 L 15973-3) NRBC/100 WBC (test See_Comment [Automat ed code = 8254390039) message] The system which generated this result transmitted reference range : 0.0 - 10.0 /100 WBCs. The refer ence range was not u sed to interpret th is result as normal/abnormal . NRBC x10^3 (test code <0.01 See_Comment [Auto mated = 9579130314) message] The s ystem which generated this result transmitted reference range : 10*3/?L. The reference range was not used to interpret this result as normal/abnormal . GRAN MAT (NEUT) % 56.1 % (test code = 770-8) IMM GRAN % (test code 0.20 % = 7819208967) LYMPH % (test code = 32.7 % 736-9) MONO % (test code = 9.0 % 5905-5) EOS % (test code = 1.6 % 713-8) BASO % (test code = 0.4 % 706-2) GRAN MAT x10^3(ANC) 5.02 10*3/uL 1.88-7.09 (test code = 1318741628) IMM GRAN x10^3 (test <0.03 0.00-0.06 code = 7829087608) LYMPH x10^3 (test code 2.93 10*3/uL 1.32-3.29 = 731-0) MONO x10^3 (test code 0.81 10*3/uL 0.33-0.92 = 742-7) EOS x10^3 (test code = 0.14 10*3/uL 0.03-0.39 711-2) BASO x10^3 (test code 0.04 10*3/uL 0.01-0.07 = 704-7) Lab Interpretation Abnormal (test code = 41182-9) [facility] WITH [id number] 15:23:00 Test Item Value Reference Range Interpretation [...] RDW-SD (test code = 41.8 fL 39-49.9 79007-7) RDW-CV (test code = 12.3 % 12-15.5 788-0) PLT (test code = See_Comment [Automated 777-3) message] The sy stem which generated this result transmitted reference range : 166 - 358 10*3/ ?L. The reference r larry was not used to interpret this result as normal/abnormal . MPV (test code = 9.5 fL 9.5-12.9 82160-5) NRBC/100 WBC (test See_Comment [Automat ed code = 2274916884) message] The system which generated this result transmitted reference range : 0.0 - 10.0 /100 WBCs. The refer ence range was not u sed to interpret th is result as normal/abnormal . NRBC x10^3 (test code <0.01 See_Comment [Auto mated = 5838444962) message] The s ystem which generated this result transmitted reference range : 10*3/?L. The reference range was not used to interpret this result as normal/abnormal . GRAN MAT (NEUT) % 74.1 % (test code = 770-8) IMM GRAN % (test code 0.40 % = 1544537438) LYMPH % (test code = 13.0 % 736-9) MONO % (test code = 11.5 % 5905-5) EOS % (test code = 0.8 % 713-8) BASO % (test code = 0.2 % 706-2) GRAN MAT x10^3(ANC) 9.93 10*3/uL 1.88-7.09 H (test code = 2053475611) IMM GRAN x10^3 (test 0.06 10*3/uL 0-0.06 code = 0142909617) LYMPH x10^3 (test code 1.74 10*3/uL 1.32-3.29 = 731-0) MONO x10^3 (test code 1.55 10*3/uL 0.33-0.92 H = 742-7) EOS x10^3 (test code = 0.11 10*3/uL 0.03-0.39 711-2) BASO x10^3 (test code 0.03 10*3/uL 0.01-0.07 = 704-7) Lab Interpretation Abnormal (test code = 73214-8) [id number] 15:12:23CT Abdomen and Pelvis without contrast. CLINICAL [...] and urinalysisas well as blood test results. [facility], Radiant Results Inft User - 04/22/2020 9:13 AM CSTCT Abdomen and Pelvis without contrast.CLINICAL HISTORY: FLANK PAIN WITH HEMATURIA. R/O RENAL STONES.TECHNIQUE: Multidetector helical CT acquisition was obtained from the lungbases to the greater trochanters without oral and IVcontrast. The imageswere reviewed in lung, bone, and soft tissue windows.FINDINGS: Absence of intravenous contrast limits evaluation of the solidorgans. Evaluation of the bowel is also limited by lack of oral contrast. Lower lungs: Clear.Liver, Gallbladder and Spleen: Unremarkable.Peritoneum: No free air or free fluid. No lymphadenopathy.Pancreas and Adrenals: Unremarkable pancreas and adrenal glands. Kidneys and Ureters: Mild increased attenuation of the renal pyramids notedon both sides which couldbe signs of systemic dehydration and/or very mildform of tubular ectasia. No kidney stones are seen.Congestion notedsurrounding the inferior pole of right kidney [...] history and urinalysisas well as blood test results.[facility]. METABOLIC PANEL (71569)2020-04-22 15:01:00 Test Item Value Reference Range Interpretation Comments NA (test code = 135 mmol/L 135-145 8030357848) K (test code = 3.6 mmol/L 3.5-5 9728278169) CL (test code = 103 mmol/L 98-108 4121074497) CO2 TOTAL (test code = 24 mmol/L 23-31 6271181789) AGAP (test code = 2-16 7262499775) BUN (test code = 9 mg/dL 7-23 6946377398) GLUCOSE (test code = 108 mg/dL 70-110 3702235300) CREATININE (test code 0.82 mg/dL 0.5-1.04 = 2430531565) TOTAL BILI (test code 0.5 mg/dL 0.1-1.1 = 2066333508) CALCIUM (test code = 9.1 mg/dL 8.6-10.6 7516539087) T PROTEIN (test code = 7.6 g/dL 6.3-8.2 0206307753) ALBUMIN (test code = 4.3 g/dL 3.5-5 0375490159) ALK PHOS (test code = 79 U/L 34-122 5560480746) ALTv (test code = 18 U/L 5-35 1742-6) AST(SGOT) (test code = 24 U/L 13-40 4084738048) eGFR Calculation mL/min/1.73m2 (Non-) (test code = 2756608376) eGFR Calculation mL/min/1.73m2 () (test code = 2390641752) EDGAR (test code = EDGAR) Association of [...] or urine or abnormalities in imaging tests). [facility] Test Item Value Reference Range Interpretation Comments APPEARANCE (test code = Hazy Clear A 5620011974) COLOR (test code = Yellow Yellow 8729502803) PH (test code = 4.8-8.0 8663598842) SP GRAVITY (test code = 1.003-1.030 9460275223) GLU U QUAL (test code = Normal Normal 3530123690) BLOOD (test code = 1+ Negative A 4625410461) KETONES (test code = 5 mg/dL Negative A 2214716968) PROTEIN (test code = Negative Negative 2887-8) UROBILIN (test code = Normal Normal 0145611436) BILIRUBIN (test code = Negative Negative 1326263497) NITRITE (test code = Positive Negative A 5000097180) LEUK VERNA (test code = 25/uL Negative A 0217143285) RBC/HPF (test code = See_Comment [Autom ated message] 6700030758) The system [employer] generated this result transmitted ref erence range: 0 - 3 HP F. The reference range was not used to int erpret this result as normal/abnormal . WBC/HPF (test code = See_Comment H [Autom ated message] 4262223828) The system [employer] generated this result transmitted ref erence range: 0 - 5 HP F. The reference range was not used to int erpret this result as normal/abnormal . BACTERIA (test code = Moderate Negative A 5689971162) MUCOUS (test code = Moderate Negative LPF A 6705996610) SQ EPITH (test code = HPF 0793102690) Lab Interpretation (test Abnormal code = 40290-0) [id number] 14:25[facility]00 Test Item Value Reference Range Interpretation Comments POCT PREG (test code = 1605) negative On board controls acceptable with present C Line (test code = 3574) POCT PREG LOT # (test code = 3575) [id number] POCT PREG TEST DATE (test 2021-11-30 code = 3576) Lab Interpretation (test code = Normal 30753-0) [facility]"
[2022-08-20] MEDS ORDERED: HYDROCODONE/APAP 5/325 MG TAB ONE (12:03)
--- NOTE | 2022-08-20 12:19 | RAD REPORT ---
EXAM DESCRIPTION: RAD - Hand Left 3 View - 08/20/2022 12:10 pm CLINICAL HISTORY: pain, swelling COMPARISON: <Comparisons> FINDINGS: No fracture or dislocation seen. Small radiopaque foreign bodies are seen soft tissues of the thenar region.
[2022-08-20] MEDS ORDERED: LIDOCAINE 1% 20 ML MDV ONE (12:30)
--- NOTE | 2022-08-20 13:21 | EDPHYS ---
Physician Documentation [facility] Name: Sharon Bee Age: 31 yrs Sex: Female : 1990 Arrival Date: 08/20/2022 Time: 11:27 Bed 5 Private MD: ED Physician Ferny Padron Historical: - Allergies: 08/20 11:48 No Known Allergies; iw - Home Meds: 11:48 None [Active]; iw - PMHx: 11:48 Heart Murmur; Kidney Infections; iw - PSHx: 11:48 None; iw - Immunization history:: Adult Immunizations Last tetanus immunization: < 5 years ago. - Social history:: Smoking status: Reported history of juuling and/or vaping. Vital Signs: 11:47 BP 129 / 99; Pulse 87; Resp 16; Temp 98.3; Pulse Ox 100% ; Weight 99.79 kg; Height 5 iw ft. 4 in. ; Pain 8/10; 11:47 Body Mass Index 37.76 (99.79 kg, 162.56 cm) iw 11:47 Pain Scale: Adult iw MDM: 11:50 Patient medically screened. [facility] 08/20 11:51 Order name: Hand Left 3 View XRAY; Complete Time: 12:20 [facility] 08/20 13:18 Order name: Wound Care: wet to dry; Complete Time: 14:07 [facility] Administered Medications: 11:57 Drug: HYDROcodone-acetaminophen PO 5 mg-325 mg 1 tabs Route: PO; iw 12:26 Follow up: Response: No adverse reaction hb 13:15 Drug: Lidocaine Infiltration (1 %) 20 ml {Note: administered by Clint CAMPOS} Volume: 20 hb ml; Route: Infiltration; 14:08 Follow up: Response: No adverse reaction hb 14:07 Drug: Doxycycline PO 100 mg Route: PO; hb 14:07 Follow up: Response: Medication administered at discharge. hb Disposition Summary: 08/20/22 13:20 Discharge Ordered Location: Home [facility] Condition: Stable [facility] Diagnosis - Laceration of the Hand, Left, initial visit [facility] Followup: [facility] - With: Francis Ochoa MD - When: 2 - 3 days - Reason: Recheck today's complaints, Continuance of care, Re-evaluation by your physician Discharge Instructions: - Discharge Summary Sheet [facility] - Nonsutured Laceration Care [facility] Forms: - Medication Reconciliation Form malcom - Thank You Letter maggie - Antibiotic Education malcom - Prescription Opioid Use [facility] Prescriptions: - Doxycycline Hyclate 100 mg Oral Tablet - take 1 tablet by ORAL route every 12 hours; 20 tablet; Refills: 0, Product [facility] Selection Permitted - Tramadol 50 mg Oral Tablet - take 1 tablet by ORAL route every 8 hours as needed; 12 tablet; Refills: 0, [facility] Product Selection Permitted Signatures: Dispatcher [employer] EDClint Fernandez PA PA jmm Williams, Irene, RN RN Enma Andrews RN RN
--- NOTE | 2022-08-20 13:21 | ER ---
Nurse's Notes [facility] Name: Sharon Bee Age: 31 yrs Sex: Female : 1990 Arrival Date: 08/20/2022 Time: 11:27 Bed 5 Private MD: Diagnosis: Laceration of the Hand, Left, initial visit Presentation: 08/20 11:47 Chief complaint: Patient states: [place] , iw laceration to her left palm. Coronavirus screen: At this time, the client does not indicate any symptoms associated with coronavirus-19. Ebola Screen: Patient negative for fever greater than or equal to 101.5 degrees Fahrenheit, and additional compatible Ebola Virus Disease symptoms Patient denies exposure to infectious person. Patient denies travel to an Ebola-affected area in the 21 days before illness onset. No symptoms or risks identified at this time. Initial Sepsis Screen: Does the patient meet any 2 criteria? No. Patient's initial sepsis screen is negative. Does the patient have a suspected source of infection? No. Patient's initial sepsis screen is negative. Risk Assessment: Do you want to hurt yourself or someone else? Patient reports no desire to harm self or others. Onset of symptoms was August 19, 2022. 11:47 Method Of Arrival: Ambulatory iw 11:47 Acuity: MARZENA 3 iw Historical: - Allergies: 11:48 No Known Allergies; iw - Home Meds: 11:48 None [Active]; iw - PMHx: 11:48 Heart Murmur; Kidney Infections; iw - PSHx: 11:48 None; iw - Immunization history:: Adult Immunizations Last tetanus immunization: < 5 years ago. - Social history:: Smoking status: Reported history of juuling and/or vaping. Screenin:04 [facility] ED Fall Risk Assessment (Adult) Score/Fall Risk Level 0 - 2 = Low Risk hb Oriented to surroundings, Maintained a safe environment. Abuse screen: Denies threats or abuse. Denies injuries from another. Nutritional screening: No deficits noted. Tuberculosis screening: No symptoms or risk factors identified. Assessment: 12:04 General: Appears in no apparent distress. Behavior is calm, cooperative. Pain: Pain hb currently is 8 out of 10 on a pain scale. Neuro: Level of Consciousness is awake, alert, obeys commands, Oriented to person, place, time, situation. Cardiovascular: Patient's skin is warm and dry. Respiratory: Respiratory effort is even, unlabored, Respiratory pattern is regular, symmetrical. 14:00 Reassessment: Patient appears in no apparent distress at this time. Patient and/or hb family updated on plan of care and expected duration. Pain level reassessed. Patient is alert, oriented x 3, equal unlabored respirations, skin warm/dry/pink. Vital Signs: 11:47 BP 129 / 99; Pulse 87; Resp 16; Temp 98.3; Pulse Ox 100% ; Weight 99.79 kg; Height 5 iw ft. 4 in. ; Pain 8/10; 11:47 Body Mass Index 37.76 (99.79 kg, 162.56 cm) iw 11:47 Pain Scale: Adult iw ED Course: 11:29 Patient arrived in ED. ts1 11:36 Clint Rabago PA is PHCP. jmm 11:36 Ferny Padron MD is Attending Physician. jm 11:48 Triage completed. iw 11:48 Arm band placed on. iw 12:02 Enma Pritchard, RN is Primary Nurse. hb 12:04 Patient has correct armband on for positive identification. hb 12:12 Hand Left 3 View XRAY In Process Unspecified. EDMS 13:20 Francis Ochoa MD is Referral Physician. [facility] 14:00 No provider procedures requiring assistance completed. Patient did not have IV access hb during this emergency room visit. Administered Medications: 11:57 Drug: HYDROcodone-acetaminophen PO 5 mg-325 mg 1 tabs Route: PO; iw 12:26 Follow up: Response: No adverse reaction hb 13:15 Drug: Lidocaine Infiltration (1 %) 20 ml {Note: administered by Clint WILSON.} Volume: 20 hb ml; Route: Infiltration; 14:08 Follow up: Response: No adverse reaction hb 14:07 Drug: Doxycycline PO 100 mg Route: PO; hb 14:07 Follow up: Response: Medication administered at discharge. hb Medication: 14:00 VIS not applicable for this client. hb Outcome: 13:20 Discharge ordered by . jmm 14:08 Discharged to home ambulatory. hb 14:08 Condition: stable 14:08 Discharge instructions given to patient, Instructed on discharge instructions, follow up and referral plans. medication usage, wound care, Demonstrated understanding of instructions, follow-up care, medications, wound care, Prescriptions given X 2. 14:09 Patient left the ED. hb Signatures: Dispatcher [employer] EDClint Fernandez PA PA jmm Williams, Irene, RN RN iw Baxter, Heather, RN RN hb Simpson, Tanya, PAS PAS ts1
[2022-08-20] MEDS ORDERED: DOXYCYCLINE 100 MG CAP PO ONE (13:47)
[2022-08-20 14:14] VITALS: BP 129/99; TEMP 98.3; O2SAT 100
== END 2022-08-20 14:09 | disposition home or self-care (01) ==
LOC: ER 11:27
DX: S61.412A Laceration without foreign body of left hand, initial encounter (principal)
CPT/HCPCS: J2001

== ENCOUNTER 2024-11-15 19:15 | Emergency (ER) | payer SELFPAY ==
--- OUTSIDE RECORDS SUMMARY | 2024-11-15 19:20 | XMS REPORT | Continuity of Care Document ---
Author Name Unknown Address [address] [facility] [address] [place] [address] Organization [facility] [place] Address [address] 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 Name Role Phone Pcp, Patient Does Not Have A Primary Care Physic allegra TRANG MUNOZ Attending Clinician Unavaila Trang Brower Attending Clinician [phone]- [phone] ABBE OBREGON Attending Clinician Unavailable Abbe Obregon DO Attending Clinician [phone] DOUG DEE Attending Clinician Unavailable Doug Dee MD Attending Clinician [phone] МАРИЯ BEE Attending Clinician Unavailable Мария Bee MD Attending Clinician [phone] Harika Iqbal Attending Clinician [phone] Harika MIDDLETON Attending Clinician Unavailable Doctor Unassigned, [place] Attending Clinician U navailable Payers Payer Name Policy Type Policy Number Effective Date Expirati on Date Source [facility] [id number] 2013 00:00:00 Problems Condition Name Condition Details Condition Category Status Onset Date Resolution Date Last Treatment Date Treating Clinician Comments Source Uterine size-date discrepanc y, antepartum Uterine size-date discrepanc y, antepartum Disease Active 04-14 00:00: 00 Mel vu [facility] Nausea without vomiting Nausea without vomiting Disease Active 2014-0 1-13 00:00: 00 Overview: Formattin g of this note might be different from the original. 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 Marijuana . Positive drug screen in 2010 for THC [facility] Hepatitis C carrier Hepatitis C carrier Disease Active 2012-04 00:00: 00 [facility] Generalize d anxiety disorder Generalize d anxiety disorder Disease Active 2012-04 00:00: 00 [facility] High-risk High-risk Disease Active 2012-04 00:00: 00 Overview: Formattin g of this note might be different from the original. 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 [facility] Allergies, Adverse Reactions, Alerts Allergy Name Allergy Type Status Severity Reaction(s) Onset Date Inactive Date Treating Clinician Comments Source NO KNOWN ALLERGIE S Drug Class Active [facility] Social History Social Habit Start Date Stop Date Quantity Comments Source History of tobacco use Current smoker [facility] Exposure to SARS-CoV-2 (event) 2022-06-24 00:00:00 2022-07-04 19:15:00 Not sure [facility] Alcohol intake 2022-07-04 00:00:00 2022-07-04 00:00:00 Current non-drinker of alcohol (finding) [facility] Tobacco use and exposure 2013-03-24 00:00:00 2013-03-24 00:00:00 Smokeless tobacco non-user [facility] Tobacco Comment 2013-03-24 00:00:00 2013-03-24 00:00:00 states she only smoked once a week ago and has stopped. states only time she smoked [facility] Sex Assigned At 1990 00:00:00 1990 00:00:00 [facility] Smoking Status Start Date Stop Date Source Ex-smoker 2013-03-24 00:00:00 2013-03-24 00:00:00 U [facility] Medications Ordered Medication Name Filled Medication Name Start Date Stop Date Current Medication? Ordering Clinician Indication Dosage Frequency Signature (SIG) Comments Components Source predniSONE (DELTASONE) tablet 60 mg 07-05 00:45: 00 07-05 00:47 :00 No 60mg 60 mg, Oral, ONCE, 1 dose, On Sun07/04/22 at 1945, MIHCELLE [facility] valACYclovi r 1 gram tablet 07-04 00:00: 00 07-12 04:59 :00 No [id number] 1g Take 1 tablet by mouth in the morning and 1 tablet at noon and 1 tablet in the evening. Do all this for 7 days. [facility] predniSONE 20 mg tablet 07-04 00:00: 00 07-09 04:59 :00 No [id number] 40mg Take 2 tablets by mouth in the morning for 4 days. [facility] terbinafine HCL 1 % cream 06-01 00:00: 00 Yes [id number] Apply to area(s) 2 (two) times daily. [facility] terbinafine HCL 250 mg tablet 06-01 00:00: 00 Yes [id number] 250mg Take 1 tablet by mouth in the morning. [facility] amoxicillin (TRIMOX) 500 mg capsule 11-05 02:18: 27 11-04 00:00 :00 No 500mg Take 500 mg by mouth 3 (three) times daily. [facility] ALPRAZolam (XANAX) 0.5 mg tablet 11-05 02:18: 21 11-04 00:00 :00 No .5mg Take 0.5 mg by mouth 2 (two) times daily. [facility] acetaminoph en (TYLENOL) 325 mg tablet 11-05 02:18: 18 11-04 00:00 :00 No 650mg Take 650 mg by mouth every 6 (six) hours as needed. [facility] ketorolac (TORADOL) injection 30 mg 04-22 18:00: 00 04-23 17:59 :00 No 30mg 30 mg, Slow IV Push, Q6H, 4 doses, First dose on Sun04/22/20 at 1200, Last dose on Sun04/23/20 at 0600, Routine [facility] cefTRIAXone (ROCEPHIN) 2,000 mg in NaCl 0.9% (NS) 100 mL MINI-BAG 04-22 17:15: 00 04-22 16:56 :00 No 2000mg 2,000 mg, IV Piggyback, ONCE, 1 dose, Basia 04/22/20 at 1115, 100 mL
Reas on for Anti-Infec tive: Empiric Therapy for Suspected Infection< br>Empiric Therapy Site: Urine
D uration of therapy: 72 hours [facility] NaCl 0.9% (NS) bolus infusion 1,000 mL 04-22 15:30: 00 04-22 16:00 :00 No 1000mL at 999 mL/hr, 1,000 mL, IV Piggyback, ONCE, 1 dose, Basia 04/22/20 at 0930, STAT [facility] ondansetron (ZOFRAN (PF)) injection 4 mg 04-22 14:30: 00 04-22 14:25 :00 No 4mg 4 mg, Slow IV Push, ONCE, 1 dose, [facility] 04/22/20 at 0830, Routine [facility] ondansetron 4 mg disintegrat ing tablet 04-22 00:00: 00 11-04 00:00 :00 No [id number] 4mg Take 1 tablet by mouth every 8 (eight) hours as needed for Nausea and Vomiting (N/V). [facility] sulfamethox azole-trime thoprim 800-160 mg per tablet 04-22 00:00: 00 05-07 05:59 :00 No [id number] 1{tbl} Take 1 tablet by mouth 2 (two) times daily for 14 days. [facility] acetaminoph en (TYLENOL) 325 mg tablet 04-17 19:13: 48 Yes 650mg Take 650 mg by mouth every 6 (six) hours as needed. [facility] ALPRAZolam (XANAX) 0.5 mg tablet 2012-04 16:14: 46 Yes .5mg Take 0.5 mg by mouth 2 (two) times daily. [facility] amoxicillin (TRIMOX) 500 mg capsule 2012-04 16:13: 24 Yes 500mg Take 500 mg by mouth 3 (three) times daily. [facility] multivitami n ( VITAMIN) tablet 2012-04 00:00: 00 11-04 00:00 :00 No [id number] 1{tbl} Take 1 Tab by mouth daily. [facility] Vital Signs Vital Name Observation Time Observation Value Comments S ource Systolic blood pressure 2022-07-05 00:15:00 122 mm[Hg] [facility] Diastolic blood pressure 2022-07-05 00:15:00 76 mm[Hg] [facility] Heart rate 2022-07-05 00:15:00 91 /min [facility] Body temperature 2022-07-05 00:15:00 37 [place] [facility] Respiratory rate 2022-07-05 00:15:00 16 /min [facility] Body height 2022-07-05 00:15:00 162.6 cm [facility] Body weight 2022-07-05 00:15:00 95.255 kg [facility] BMI 2022-07-05 00:15:00 36.05 kg/m2 [facility] Oxygen saturation in Arterial blood by Pulse oximetry 2022-07-05 00:15:00 100 /min [facility] Systolic blood pressure 2022-06-24 01:08:13 171 mm[Hg] [facility] Diastolic blood pressure 2022-06-24 01:08:13 100 mm[Hg] [facility] Heart rate 2022-06-24 01:06:00 103 /min [facility] Body temperature 2022-06-24 01:06:00 37.11 [place] [facility] Respiratory rate 2022-06-24 01:06:00 18 /min [facility] Body height 2022-06-24 01:06:00 162.6 cm [facility] Body weight 2022-06-24 01:06:00 96.616 kg [facility] BMI 2022-06-24 01:06:00 36.56 kg/m2 [facility] Oxygen saturation in Arterial blood by Pulse oximetry 2022-06-24 01:06:00 99 /min [facility] Systolic blood pressure 2022-06-02 00:27:00 141 mm[Hg] [facility] Diastolic blood pressure 2022-06-02 00:27:00 60 mm[Hg] [facility] Heart rate 2022-06-02 00:27:00 105 /min [facility] Body temperature 2022-06-02 00:27:00 37 [place] [facility] Respiratory rate 2022-06-02 00:27:00 18 /min [facility] Body weight 2022-06-02 00:27:00 85.276 kg [facility] BMI 2022-06-02 00:27:00 32.27 kg/m2 [facility] Oxygen saturation in Arterial blood by Pulse oximetry 2022-06-02 00:27:00 99 /min [facility] Systolic blood pressure 2020-11-05 05:50:00 136 mm[Hg] [facility] Diastolic blood pressure 2020-11-05 05:50:00 88 mm[Hg] [facility] Heart rate 2020-11-05 05:50:00 85 /min [facility] Respiratory rate 2020-11-05 05:50:00 20 /min [facility] Oxygen saturation in Arterial blood by Pulse oximetry 2020-11-05 05:50:00 100 /min [facility] Body temperature 2020-11-05 02:15:00 37.39 [place] [facility] Body height 2020-11-05 02:15:00 162.6 cm [facility] Body weight 2020-11-05 02:15:00 85.276 kg [facility] BMI 2020-11-05 02:15:00 32.27 kg/m2 [facility] Systolic blood pressure 2020-11-03 20:53:00 134 mm[Hg] [facility] Diastolic blood pressure 2020-11-03 20:53:00 70 mm[Hg] [facility] Heart rate 2020-11-03 20:53:00 91 /min [facility] Body temperature 2020-11-03 20:53:00 37.22 [place] [facility] Respiratory rate 2020-11-03 20:53:00 14 /min [facility] Body weight 2020-11-03 20:53:00 90.719 kg [facility] BMI 2020-11-03 20:53:00 34.33 kg/m2 [facility] Oxygen saturation in Arterial blood by Pulse oximetry 2020-11-03 20:53:00 99 /min [facility] Systolic blood pressure 2020-04-22 17:00:00 115 mm[Hg] [facility] Diastolic blood pressure 2020-04-22 17:00:00 78 mm[Hg] [facility] Heart rate 2020-04-22 17:00:00 79 /min [facility] Respiratory rate 2020-04-22 17:00:00 18 /min [facility] Oxygen saturation in Arterial blood by Pulse oximetry 2020-04-22 17:00:00 97 /min [facility] Body temperature 2020-04-22 15:03:42 37.06 [place] [facility] Body weight 2020-04-22 14:06:00 90.719 kg [facility] BMI 2020-04-22 14:06:00 34.33 kg/m2 [facility] Systolic blood pressure 2020-04-22 17:00:00 115 mm[Hg] [facility] Diastolic blood pressure 2020-04-22 17:00:00 78 mm[Hg] [facility] Heart rate 2020-04-22 17:00:00 79 /min [facility] Respiratory rate 2020-04-22 17:00:00 18 /min [facility] Oxygen saturation in Arterial blood by Pulse oximetry 2020-04-22 17:00:00 97 /min [place] [facility] Body temperature 2020-04-22 15:03:42 37.06 [place] [facility] Body weight 2020-04-22 14:06:00 90.719 kg [facility] BMI 2020-04-22 14:06:00 34.33 kg/m2 [facility] Procedures Procedure Date / Time Performed Performing Clinicia n Source CONSENT/REFUSAL FOR DIAGNOSIS AND TREATMENT 2022-07-05 00:13:23 Doctor Unassigned, [place] [facility] CONSENT/REFUSAL FOR DIAGNOSIS AND TREATMENT 2022-06-24 01:03:56 Doctor Unassigned, [place] [facility] NOTICE OF PRIVACY PRACTICES 2022-06-07 04:06:27 Doctor Unassigned, [place] [facility] CONSENT/REFUSAL FOR DIAGNOSIS AND TREATMENT 2022-06-07 04:06:00 Doctor Unassigned, [place] [facility] CONSENT/REFUSAL FOR DIAGNOSIS AND TREATMENT 2022-06-02 00:14:50 Doctor Unassigned, [place] [facility] COMP. METABOLIC PANEL ([id number]) 2020-11-05 03:28:00 Lashawn Sun [facility] CBC WITH DIFF 2020-11-05 03:28:00 Lashawn Sun [facility] URINALYSIS 2020-11-05 03:28:00 Lashawn Sun [facility] NOTICE OF PRIVACY PRACTICES 2020-11-05 02:00:38 Doctor Unassigned, [place] [facility] CONSENT/REFUSAL FOR DIAGNOSIS AND TREATMENT 2020-11-05 02:00:15 Doctor Unassigned, [place] [facility] NOTICE OF PRIVACY PRACTICES 2020-11-03 20:36:23 Doctor Unassigned, [place] [facility] CONSENT/REFUSAL FOR DIAGNOSIS AND TREATMENT 2020-11-03 20:35:15 Doctor Unassigned, [place] [facility] CT ABDOMEN PELVIS WO CONTRAST 2020-04-22 14:46:00 Abbe Obregon [facility] POCT TEST 2020-04-22 14:25:00 Sandra Obregon [facility] COMP. METABOLIC PANEL ([id number]) 2020-04-22 14:24:00 Abbe Obregon [facility] CBC WITH DIFF 2020-04-22 14:24:00 Abbe Obregon [facility] URINALYSIS 2020-04-22 14:24:[address] [facility] NOTICE OF PRIVACY PRACTICES 2020-04-22 13:57:03 Doctor Unassigned, [place] [facility] CONSENT/REFUSAL FOR DIAGNOSIS AND TREATMENT 2020-04-22 13:56:47 Doctor Unassigned, [place] [facility] Encounters Start Date/Time End Date/Time Encounter Type Admission Type Attending [facility] Facility Care Department Encounter ID Source 2022-07-04 19:18:00 2022-07-04 19:53:00 Emergency X TRANG MUNOZ [facility] ERT [id number] [facility] 2022-07-04 19:18:00 2022-07-04 19:53:00 Emergency Trang Munoz [facility] 1.2.840.114 350.1.13.10 4.2.7.2.686 [id number] [facility] 2022-06-23 20:11:00 2022-06-23 20:32:00 Emergency X OBREGONABBE HOANG [facility] ERT [id number] [facility] 2022-06-23 20:11:00 2022-06-23 20:32:00 Emergency Abbe Obregon [facility] 1.2.840.114 350.1.13.10 4.2.7.2.686 [id number] [facility] 2022-06-06 22:16:00 2022-06-06 22:30:00 Emergency X DOUG DEE [facility] ERT [id number] [facility] 2022-06-06 22:16:00 2022-06-06 22:30:00 Emergency Doug Dee [facility] 1.2.840.114 350.1.13.10 4.2.7.2.686 [id number] [facility] 2022-06-01 18:29:00 2022-06-01 18:46:00 Emergency X RUDDY МАРИЯ [facility] ERT [id number] [facility] 2022-06-01 18:29:00 2022-06-01 18:46:00 Emergency Ruddy Мария Ryder [facility] 1.2.840.114 350.1.13.10 4.2.7.2.686 [id number] [facility] 2020-11-04 21:22:00 2020-11-05 00:55:00 Emergency ElaHarika Keyonna [facility] 1.2.840.114 350.1.13.10 4.2.7.2.686 [id number] [facility] 2020-11-04 21:22:00 2020-11-04 21:22:00 Emergency X Harika MIDDLETON [facility] ERT [id number] [facility] 2020-11-03 15:54:00 2020-11-03 17:59:00 Emergency [facility] 1.2.840.114 350.1.13.10 4.2.7.2.686 [id number] [facility] 2020-11-03 15:35:00 2020-11-03 15:35:00 Emergency X [facility] ERT [id number] [facility] 2020-11-03 00:00:00 2020-11-03 00:00:00 Orders Only Doctor Unassigned, [place] [facility] 1.2.840.114 350.1.13.10 4.2.7.2.686 [id number] [facility] 2020-04-22 08:09:00 2020-04-22 11:33:00 Emergency Abbe Obregon [facility] 1.2.840.114 350.1.13.10 4.2.7.2.686 [id number] 2020-04-22 08:09:00 2020-04-22 11:33:00 Emergency Abbe Obregon [facility] 1.2.840.114 350.1.13.10 4.2.7.2.686 [id number] [facility] 2020-04-22 07:58:00 2020-04-22 07:58:00 Emergency X [facility] ERT [id number] [facility] 2020-04-22 00:00:00 2020-04-22 00:00:00 Orders Only Doctor Unassigned, [place] [facility] 1.2.840.114 350.1.13.10 4.2.7.2.686 [id number] 2020-04-22 00:00:00 2020-04-22 00:00:00 Orders Only Doctor Unassigned, [place] [facility] 1.2.840.114 350.1.13.10 4.2.7.2.686 [id number] [facility] 2019-12-15 00:00:00 2019-12-15 00:00:00 Letter (Out) Doctor Unassigned, [place] [facility] 1.2.840.114 350.1.13.10 4.2.7.2.686 [id number] 2019-12-15 00:00:00 2019-12-15 00:00:00 Letter (Out) Doctor Unassigned, [place] [facility] 1.2.840.114 350.1.13.10 4.2.7.2.686 [id number] [facility] Results Test Description Test Time Test Comments Results Result Co mments [facility][id number][facility]2020-11-05 04:11:13* Test Item Value Reference Range Interpretation Comme nts NA (test code = 5932288363) 138 mmol/L 135-145 K (test code = 8952545479) 3.6 mmol/L 3.5-5.0 CL (test code = 6217004592) 102 mmol/L 98-108 CO2 TOTAL (test code = 7495734351) 27 mmol/L 23-31 AGAP (test code = 6872284455) 2-16 BUN (test code = 1202526927) 16 mg/dL 7-23 GLUCOSE (test code = 6767374869) 75 mg/dL 70-110 CREATININE (test code = 5599616037) 1.11 mg/dL 0.50-1.04 H TOTAL BILI (test code = 4356054721) 0.3 mg/dL 0.1-1.1 CALCIUM (test code = 2481461786) 9.5 mg/dL 8.6-10.6 T PROTEIN (test code = 9085453381) 7.2 g/dL 6.3-8.2 ALBUMIN (test code = 5372172568) 4.2 g/dL 3.5-5.0 ALK PHOS (test code = 0407161438) 62 U/L 34-122 ALTv (test code = 1742-6) 17 U/L 5-35 AST(SGOT) (test code = 2611333043) 29 U/L 13-40 eGFR (test code = 2917982105) mL/min/1.73m2 EDGAR (test code = EDGAR) Association of [...] or abnormalities in imaging tests). Lab Interpretation (test code = 66810-9) Abnormal [facility] WITH [id number] 03:40:30* Test Item Value Reference Range Interpretation Comme nts WBC (test code = 6690-2) See_Comment [Angie's List] The system which generated this result transmitted reference range: 4.30 - 11.10 10*3/?L. The reference range was not used to interpret this result as normal/abnormal. RBC (test code = 789-8) See_Comment [Angie's List] The system which generated this result transmitted reference range: 3.93 - 5.25 10*6/?L. The reference range was not used to interpret this result as normal/abnormal. HGB (test code = 718-7) 12.3 g/dL 11.6-15.0 HCT (test code = 4544-3) 37.0 % 35.7-45.2 MCV (test code = 787-2) 91.4 fL 80.6-95.5 MCH (test code = 785-6) 30.4 pg 25.9-32.8 MCHC (test code = 786-4) 33.2 g/dL 31.6-35.1 RDW-SD (test code = 21261-2) 42.9 fL 39.0-49.9 RDW-CV (test code = 788-0) 12.9 % 12.0-15.5 PLT (test code = 777-3) See_Comment [Automated messa ge] The system which generated this result transmitted reference range: 166 - 358 10*3/?L. The reference range was not used to interpret this result as normal/abnormal. MPV (test code = 99247-5) 9.4 fL 9.5-12.9 L NRBC/100 WBC (test code = 1777950197) See_Comment [Automated [employer] ssage] The system which generated this result transmitted reference range: 0.0 - 10.0 /100 WBCs. The reference range was not used to interpret this result as normal/abnormal. NRBC x10^3 (test code = 7627697185) <0.01 See_Comment [Automated messa ge] The system which generated this result transmitted reference range: 10*3/?L. The reference range was not used to interpret this result as normal/abnormal. GRAN MAT (NEUT) % (test code = 770-8) 56.1 % IMM GRAN % (test code = 9310210306) 0.20 % LYMPH % (test code = 736-9) 32.7 % MONO % (test code = 5905-5) 9.0 % EOS % (test code = 713-8) 1.6 % BASO % (test code = 706-2) 0.4 % GRAN MAT x10^3(ANC) (test code = 4737372448) 5.02 10*3/uL 1.88-7.09 IMM GRAN x10^3 (test code = 1889195588) <0.03 0.00-0.06 LYMPH x10^3 (test code = 731-0) 2.93 10*3/uL 1.32-3.29 MONO x10^3 (test code = 742-7) 0.81 10*3/uL 0.33-0.92 EOS x10^3 (test code = 711-2) 0.14 10*3/uL 0.03-0.39 BASO x10^3 (test code = 704-7) 0.04 10*3/uL 0.01-0.07 Lab Interpretation (test code = 47457-5) Abnormal [facility] WITH [id number] 15:23:00* Test Item Value Reference Range Interpretation Comme nts WBC (test code = 6690-2) See_Comment H [Automated messa ge] The system which generated this result transmitted reference range: 4.30 - 11.10 10*3/?L. The reference range was not used to interpret this result as normal/abnormal. RBC (test code = 789-8) See_Comment [Automated messa ge] The system which generated this result transmitted reference range: 3.93 - 5.25 10*6/?L. The reference range was not used to interpret this result as normal/abnormal. HGB (test code = 718-7) 12.9 g/dL 11.6-15 HCT (test code = 4544-3) 38.8 % 35.7-45.2 MCV (test code = 787-2) 92.6 fL 80.6-95.5 MCH (test code = 785-6) 30.8 pg 25.9-32.8 MCHC (test code = 786-4) 33.2 g/dL 31.6-35.1 RDW-SD (test code = 95864-6) 41.8 fL 39-49.9 RDW-CV (test code = 788-0) 12.3 % 12-15.5 PLT (test code = 777-3) See_Comment [Automated messa ge] The system which generated this result transmitted reference range: 166 - 358 10*3/?L. The reference range was not used to interpret this result as normal/abnormal. MPV (test code = 16633-0) 9.5 fL 9.5-12.9 NRBC/100 WBC (test code = 7406316648) See_Comment [Automated [employer] ssage] The system which generated this result transmitted reference range: 0.0 - 10.0 /100 WBCs. The reference range was not used to interpret this result as normal/abnormal. NRBC x10^3 (test code = 8333126656) <0.01 See_Comment [Automated messa ge] The system which generated this result transmitted reference range: 10*3/?L. The reference range was not used to interpret this result as normal/abnormal. GRAN MAT (NEUT) % (test code = 770-8) 74.1 % IMM GRAN % (test code = 7237658944) 0.40 % LYMPH % (test code = 736-9) 13.0 % MONO % (test code = 5905-5) 11.5 % EOS % (test code = 713-8) 0.8 % BASO % (test code = 706-2) 0.2 % GRAN MAT x10^3(ANC) (test code = 6013376484) 9.93 10*3/uL 1.88-7.09 H IMM GRAN x10^3 (test code = 8089175835) 0.06 10*3/uL 0-0.06 LYMPH x10^3 (test code = 731-0) 1.74 10*3/uL 1.32-3.29 MONO x10^3 (test code = 742-7) 1.55 10*3/uL 0.33-0.92 H EOS x10^3 (test code = 711-2) 0.11 10*3/uL 0.03-0.39 BASO x10^3 (test code = 704-7) 0.03 10*3/uL 0.01-0.07 Lab Interpretation (test code = 73201-9) [facility] [id number] 15:12:23CT Abdomen and Pelvis without contrast. CLINICAL [...] calcifications are seen in the pelvis, most likelyp hleboliths.. ? Vessels: Normal. Retroperitoneum: No abnormal fluid [...] dehydration and/or mild form of tubularectasia.2. Congestion offocal fat and thickened fascia along the inferior pole ofthe right kidney could be sign of recentlypassed kidney stone. The otherpossibility is pyelonephritis. Please correlate with history and urinalysisas well as blood test results. [facility], Radiant Results Inft User - 04/22/2020 9:13 AM CSTCT Abdomen and Pelvis without contrast.CLINICAL HISTORY: FLANK PAIN WITH HEMATURIA. R/O RENAL STONES.TECHNIQUE: Multidetector helical CT acquisition was obtained from the lungbases to the greater trochanterswithout oral and IV contrast. The imageswere reviewed in lung, bone, and soft tissue windows.FINDINGS: Absence of intravenous contrast limits evaluation of the solidorgans. Evaluation of the bowel isalso limited by lack of oral contrast. Lower [...] Reproductive Organs: Urinary bladder is collapsed. No grosspathologyin the uterus or adnexa. Bones: Exaggerated lumbar lordosis, probably partially sacralized L5, withbilateral L5 spondylolysis and very minimal spondylolisthesis.Soft tissues: Unremarkable.CONCLUSION:1. No kidney stones or hydronephrosis. Increased attenuation of the renalpyramids could be signs of s ystemic dehydration and/or mild form of tubularectasia.2. Congestion of focal fat and thickened fascia along the inferior pole ofthe right kidney could be sign of recently passed kidney stone. The otherpossibility is pyelonephritis. Please correlate with history and urinalysisas well as blood test results. [facility] ([id number])2020-04-22 15:01:00* Test Item Value Reference Range Interpretation Comme nts NA (test code = 1006125732) 135 mmol/L 135-145 K (test code = 5429416741) 3.6 mmol/L 3.5-5 CL (test code = 8484849719) 103 mmol/L 98-108 CO2 TOTAL (test code = 8038690194) 24 mmol/L 23-31 AGAP (test code = 0304860737) 2-16 BUN (test code = 5502261771) 9 mg/dL 7-23 GLUCOSE (test code = 6440855729) 108 mg/dL 70-110 CREATININE (test code = 1011410360) 0.82 mg/dL 0.5-1.04 TOTAL BILI (test code = 1794916147) 0.5 mg/dL 0.1-1.1 CALCIUM (test code = 9174761929) 9.1 mg/dL 8.6-10.6 T PROTEIN (test code = 7889201527) 7.6 g/dL 6.3-8.2 ALBUMIN (test code = 7282100864) 4.3 g/dL 3.5-5 ALK PHOS (test code = 5190285320) 79 U/L 34-122 ALTv (test code = 1742-6) 18 U/L 5-35 AST(SGOT) (test code = 4019022710) 24 U/L 13-40 eGFR Calculation (Non-) (test code = 5281779413) mL/min/1.73m2 eGFR Calculation () (test code = 9960660476) mL/min/1.73m2 EDGAR (test code = EDGAR) Association of [...] or urine or abnormalities in imaging tests). [facility]2021[facility] 14:59:00* Test Item Value Reference Range Interpretation Comme nts APPEARANCE (test code = 2040270727) Hazy Clear A COLOR (test code = 3567458892) Yellow Yellow PH (test code = 6025679538) 4.8-8.0 SP GRAVITY (test code = 5088882885) 1.003-1.030 GLU U QUAL (test code = 0876832262) Normal Normal BLOOD (test code = 1230223790) 1+ Negative A KETONES (test code = 2095002958) 5 mg/dL Negative A PROTEIN (test code = 2887-8) Negative Negative UROBILIN (test code = 9183161101) Normal Normal BILIRUBIN (test code = 0163847760) Negative Negative NITRITE (test code = 4149188467) Positive Negative A LEUK VERNA (test code = 0525067728) 25/uL Negative A RBC/HPF (test code = 1304333151) See_Comment [Automated [employer]] The system which generated this result transmitted reference range: 0 - 3 HPF. The reference range was not used to interpret this result as normal/abnormal. WBC/HPF (test code = 0857295522) See_Comment H [Automated messa ge] The system which generated this result transmitted reference range: 0 - 5 HPF. The reference range was not used to interpret this result as normal/abnormal. BACTERIA (test code = 4016732505) Moderate Negative A MUCOUS (test code = 7519211476) Moderate Negative LPF A SQ EPITH (test code = 4425038365) HPF Lab Interpretation (test code = 10460-0) Abnormal [facility] ClinicPO[facility] [id number] 14:25:00* Test Item Value Reference Range Interpretation Comme nts POCT PREG (test code = 1605) negative On board controls acceptable with C Line (test code = 3574) present POCT PREG LOT # (test code = 3575) [id number] POCT PREG TEST DATE ( test code = 3576) 2021-11-30 Lab Interpretation (test cod e = 17701-9) Normal [facility]"
[2024-11-15] MEDS ORDERED: KETOROLAC 30 MG/ML INJ ONE (19:42)
[2024-11-15] MEDS ORDERED: LIDOCAINE 4% PATCH ONE (19:47)
--- NOTE | 2024-11-15 20:20 | ER ---
Nurse's Notes [facility] Name: Sharon Bee Age: 34 yrs Sex: Female : 1990 Arrival Date: 11/15/2024 Time: 19:15 Bed 13 Private MD: Diagnosis: Low back pain Presentation: 11/15 19:27 Chief complaint: Patient states: LOWER RT BACK PAIN X 2 DAYS, FEELS BURNING PAIN AND dd2 'LOCKING UP'. PT REPORTS HX OF A PINCHED NERVE. Coronavirus screen: At this time, the client does not indicate any symptoms associated with coronavirus-19. Ebola Screen: No symptoms or risks identified at this time. Initial Sepsis Screen: Does the patient meet any 2 criteria? No. Patient's initial sepsis screen is negative. Does the patient have a suspected source of infection? No. Patient's initial sepsis screen is negative. Risk Assessment: Do you want to hurt yourself or someone else? Patient reports no desire to harm self or others. Onset of symptoms was November 14, 2024. 19:27 Method Of Arrival: Ambulatory dd2 19:27 Acuity: MARZENA 4 dd2 Triage Assessment: 19:30 General: Appears in no apparent distress. uncomfortable, Behavior is calm, cooperative, dd2 appropriate for age. Pain: Complains of pain in right low back Pain currently is 6 out of 10 on a pain scale. at worst was 10 out of 10 on a pain scale. Musculoskeletal: Circulation, motion, and sensation intact. Range of motion: intact in all extremities, Reports pain in right low back. 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 - Infectious Disease History:: Denies. - Social history:: Smoking status: Patient denies any tobacco usage or history of. Screenin:35 [facility] ED Fall Risk Assessment (Adult) History of falling in the last 3 months, 5 including since admission No falls in past 3 months (0 pts) Confusion or Disorientation No (0 pts) Intoxicated or Sedated No (0 pts) Impaired Gait Yes (1 pt) Mobility Assist Device Used No (0 pt) Altered Elimination No (0 pt) Score/Fall Risk Level 0 - 2 = Low Risk. Abuse screen: Denies threats or abuse. Denies injuries from another. Nutritional screening: No deficits noted. Tuberculosis screening: No symptoms or risk factors identified. Assessment: 19:53 Pain: Complains of pain in right low back Pain radiates to right leg Quality of pain is hm5 described as sharp. Neuro: No deficits noted. Cardiovascular: No deficits noted. Reports None. Respiratory: No deficits noted. GI: No deficits noted. No signs and/or symptoms were reported involving the gastrointestinal system. : No deficits noted. No signs and/or symptoms were reported regarding the genitourinary system. EENT: No deficits noted. No signs and/or symptoms were reported regarding the EENT system. Derm: No deficits noted. No signs and/or symptoms reported regarding the dermatologic system. Musculoskeletal: Reports pain in right low back patient reports pain in right lower back radiating down right leg. sts hx of "pinched nerve" and same pain in the past. 19:55 General: patient reports no chance of .. 5 Vital Signs: 19:27 BP 127 / 79; Pulse 84; Resp 16; Temp 98.2; Pulse Ox 100% on R/A; Pain 6/10; dd2 20:20 BP 133 / 87; Pulse 78; Resp 17; Pulse Ox 99% on R/A; hm5 19:27 Pain Scale: Adult dd2 ED Course: 19:18 Patient arrived in ED. jj6 19:19 Doug Mendoza PA is PHCP. cp 19:19 Javi Madrid DO is Attending Physician. cp 19:26 Enma Ernst, KELLEY is Primary Nurse. 5 19:30 Triage completed. dd2 19:30 Arm band placed on right wrist. dd2 19:36 Patient has correct armband on for positive identification. Bed in low position. Call [facility] light in reach. Side rails up X 1. Provided Education on: plan of care. 19:36 No provider procedures requiring assistance completed. 5 20:35 Patient did not have IV access during this emergency room visit. 5 Administered Medications: 19:52 Drug: Lidoderm Topical Patch 5 % (700 mg/patch) 1 patches Topical once; leave on for 12 hm5 hours; cover most painful area; may cut into smaller pieces {Note: right lower back.} Route: Topical; Site: affected area; 20:20 Follow up: Response: Pain is decreased hm5 19:52 Drug: Methocarbamol PO 750 mg PO once Route: PO; hm5 20:20 Follow up: Response: Pain is decreased hm5 19:53 Drug: Ketorolac IM 30 mg IM once Route: IM; Site: right ventrogluteal; hm5 20:21 Follow up: Response: Pain is decreased hm5 19:53 Drug: Dexamethasone IM 10 mg IM once Route: IM; Site: right ventrogluteal; hm5 20:21 Follow up: Response: Pain is decreased hm5 Medication: 19:36 VIS not applicable for this client. 5 Outcome: 20:20 Discharge ordered by . jose 20:35 Discharged to home ambulatory, with friend, 5 20:35 Condition: stable 20:35 Discharge instructions given to patient, Instructed on discharge instructions, follow up and referral plans. no drinking with medication, no driving heavy equipment, medication usage, Demonstrated understanding of instructions, follow-up care, medications, Prescriptions given X 3, 20:36 Patient left the ED. 5 Signatures: Doug Mendoza PA-C PALianet Ca cp jj6 BASILIO PORTILLO RN RN dd2 Enma Ernst RN RN hm5
--- NOTE | 2024-11-15 20:20 | EDPHYS ---
Physician Documentation [facility] Name: Sharon Bee Age: 34 yrs Sex: Female : 1990 Arrival Date: 11/15/2024 Time: 19:15 Bed 13 Private MD: ED Physician Javi Madrid HPI: 11/15 19:40 This 34 yrs old Female presents to ER via Ambulatory with complaints of Back cp Pain. 19:40 The patient presents with pain that is acute, with no known mechanism of injury. The cp symptoms are located in the right low back. 19:40 Onset: The symptoms/episode began/occurred 2 day(s) ago. cp 19:40 The pain does not radiate. Associated signs and symptoms: Pertinent negatives: dysuria, cp fever, hematuria, incontinence, numbness, weakness, radiating pain down leg. Severity of symptoms: in the emergency department the symptoms are unchanged, despite home interventions. LOGISTICIAN: 19:55 unknown hm5 Historical: - Allergies: 19:30 No Known Allergies; dd2 - PMHx: 19:30 Heart Murmur; Kidney Infections; dd2 - PSHx: 19:30 None; dd2 - Immunization history:: Adult Immunizations up to date. - Infectious Disease History:: Denies. - Social history:: Smoking status: Patient denies any tobacco usage or history of. ROS: 19:40 Back: Positive for pain at rest, pain with movement, of the right low back, cp 19:40 Eyes: Negative for injury, pain, redness, and discharge, cp 19:40 Constitutional: Negative for body aches, chills, fever, poor PO intake, 19:40 Neck: Negative for pain with movement, pain at rest, stiffness, 19:40 Cardiovascular: Negative for chest pain, palpitations, 19:40 Respiratory: Negative for cough, shortness of breath, wheezing, 19:40 Abdomen/GI: Negative for abdominal pain, vomiting, diarrhea, constipation, bowel incontinence, 19:40 : Negative for urinary symptoms, difficulty urinating, bladder incontinence, 19:40 Neuro: Negative for altered mental status, headache, numbness, weakness, 19:40 All other systems are negative, Exam: 19:45 Constitutional: The patient appears in no acute distress, alert, awake, non-toxic, well cp developed, well nourished, uncomfortable, overweight 19:45 Head/Face: Normocephalic, atraumatic. cp 19:45 Eyes: Periorbital structures: appear normal, Conjunctiva: normal, no exudate, no injection, Sclera: no appreciated abnormality, Lids and lashes: appear normal, bilaterally, 19:45 ENT: External ear(s): are unremarkable, Nose: is normal, Mouth: Lips: moist, Oral mucosa: moist, Posterior pharynx: Airway: no evidence of obstruction, patent, 19:45 Chest/axilla: Inspection: normal, 19:45 Cardiovascular: Rate: normal, Rhythm: regular, 19:45 Respiratory: the patient does not display signs of respiratory distress, Respirations: normal, no use of accessory muscles, no retractions, Breath sounds: are clear throughout, no decreased breath sounds, no stridor, no wheezing, 19:45 Abdomen/GI: Inspection: abdomen appears normal, Palpation: abdomen is soft and non-tender, in all quadrants, 19:45 Back: pain, that is moderate, of the right low back, ROM is painful, with all movement, 19:45 Neuro: Orientation: to person, place \T\ time. Mentation: is normal, Motor: moves all fours, strength is normal, Sensation: is normal, Gait: is steady, at a normal pace, without difficulty, Deep tendon reflexes are 2+ (normal) in the right patellar, right Achilles, left patellar and left Achilles, Vital Signs: 19:27 BP 127 / 79; Pulse 84; Resp 16; Temp 98.2; Pulse Ox 100% on R/A; Pain 6/10; dd2 20:20 BP 133 / 87; Pulse 78; Resp 17; Pulse Ox 99% on R/A; hm5 19:27 Pain Scale: Adult dd2 MDM: 20:00 Differential diagnosis: Pyelonephritis Ureterolithiasis uti, sciatica, acute low back cp pain. 20:20 Medical Screening Exam initiated cp 20:20 Data reviewed: vital signs, nurses notes. 20:20 I considered the following discharge prescriptions or medication management in the cp emergency department Medications were administered in the Emergency Department. See MAR. 20:20 Counseling: I had a detailed discussion with the patient and/or guardian regarding the cp historical points, exam findings, and any diagnostic results supporting the discharge/admit diagnosis, to return to the emergency department if symptoms worsen or persist or if there are any questions or concerns that arise at home. Response to treatment: the patient's symptoms have mildly improved after treatment, and as a result, I will discharge patient. Administered Medications: 19:52 Drug: Lidoderm Topical Patch 5 % (700 mg/patch) 1 patches Topical once; leave on for 12 hm5 hours; cover most painful area; may cut into smaller pieces {Note: right lower back.} Route: Topical; Site: affected area; 20:20 Follow up: Response: Pain is decreased hm5 19:52 Drug: Methocarbamol PO 750 mg PO once Route: PO; hm5 20:20 Follow up: Response: Pain is decreased hm5 19:53 Drug: Ketorolac IM 30 mg IM once Route: IM; Site: right ventrogluteal; hm5 20:21 Follow up: Response: Pain is decreased hm5 19:53 Drug: Dexamethasone IM 10 mg IM once Route: IM; Site: right ventrogluteal; hm5 20:21 Follow up: Response: Pain is decreased hm5 Disposition: 11/16 00:15 I was immediately available on-site in the Emergency Department for consultation in the ms3 care of the patient. Disposition Summary: 11/15/24 20:20 Discharge Ordered Notes: Location: Home cp Problem: new cp Symptoms: have improved cp Condition: Stable cp Diagnosis - Low back pain cp Followup: cp - With: Private Physician - When: 2 - 3 days - Reason: Worsening of condition Discharge Instructions: - Discharge Summary Sheet cp - Acute Back Pain, Adult cp - Heat Therapy cp - Back Exercises cp - Form - Late to Work or School cp Forms: - Medication Reconciliation Form cp - Antibiotic Education cp - Prescription Opioid Use cp - Patient Portal Instructions cp - Leadership Thank You Letter cp Prescriptions: - Lidoderm 5 % Topical adhesive patch, medicated - apply 1 package TOPICAL route per package directions As needed leave on most cp painful area for up to 12 hrs; 10 patch; Refills: 0, Product Selection Permitted - Medrol (Juancarlos) 4 mg Oral Tablets, Dose Pack - take 1 tablet ORAL route as directed - follow package instructions; 1 packet; cp Refills: 0, Product Selection Permitted - methocarbamol 750 mg Oral tablet - take 1 tablet ORAL route 3 times per day; 30 tablet; Refills: 0, Product cp Selection Permitted Signatures: Page, Doug, BELTRAN PAMary cp Javi Madrid DO DO ms3 BASILIO PORTILLO, RN RN dd2 Enma Ernst, RN RN hm5
[2024-11-16 03:48] VITALS: TEMP 98.2
[2024-11-16 03:50] VITALS: BP 133/87; O2SAT 99
== END 2024-11-15 20:36 | disposition home or self-care (01) ==
LOC: ER 19:15
DX: M54.50 Low back pain, unspecified (principal)
CPT/HCPCS: 96372; 99284; J1100; J2003

== ENCOUNTER 2024-11-25 16:14 | Emergency (ER) | payer SELFPAY ==
--- OUTSIDE RECORDS SUMMARY | 2024-11-25 16:18 | XMS REPORT | Continuity of Care Document ---
Author Name Unknown Address [address] [facility] [address] [place] [address] Organization [facility] Address [address] [facility] [address] [facility] 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 Role Phone Pcp, Patient Does Not Have A Primary Care Physic allegra TRANG ADAMS Attending Clinician Unavaila Trang Brower Attending Clinician [phone] ABBE OBREGON Attending Clinician Unavailable Abbe Obregon DO Attending Clinician [phone] DOUG DEE Attending Clinician Unavailable Doug Dee MD Attending Clinician [phone] МАРИЯ BEE Attending Clinician Unavailable Мария Bee MD Attending Clinician [phone] Harika Iqbal Attending Clinician [phone] Harika MIDDLETON Attending Clinician Unavailable Doctor Unassigned, [address] Attending Clinician U navailable Payers Payer Name Policy Type Policy Number Effective Date Expirati on Date Source [facility] [place] [facility] [place] [id number] 2013 00:00:00 Problems Condition Name Condition Details Condition Category Status Onset Date Resolution Date Last Treatment Date Treating Clinician Comments Source Uterine size-date discrepanc y, antepartum Uterine size-date discrepanc y, antepartum Disease [facility] N[facility]a without vomiting Nausea without vomiting Disease Active 04-14 00:00: 00 Overview: Formattin g of this note might be different from the original. ICD10 Diagnosis Term Wet Roller Utility [facility] Rubella immune Rubella immune Disease Active 2012-04 00:00: 00 [facility] Immune to varicella Immune to varicella Disease Active 2012-04 00:00: 00 [facility] H/O drug abuse H/O drug abuse Disease Active 2012-04 00:00: 00 Overview: Formattin g of this note might be different from the original. Marijuana . Positive drug screen in 2010 for THC [facility] Hepatitis C carrier Hepatitis C carrier Disease Active 2012-04 00:00: 00 [facility] Generalize d anxiety disorder Generalize d anxiety disorder Disease Active 2012-04 00:00: 00 [facility] High-risk High-risk Disease Active 2012-04 00:00: 00 Overview: Formattin g of this note might be different from the original. ICD10 Diagnosis Term Wet Roller Utility [facility] Allergies, Adverse Reactions, Alerts Allergy Name Allergy Type Status Severity Reaction(s) Onset Date Inactive Date Treating Clinician Comments Source NO KNOWN ALLERGIE S Drug Class Active [facility] Social History Social Habit Start Date Stop Date Quantity Comments Source History of tobacco use Current smoker [facility] Exposure to SARS-CoV-2 (event) 2022-06-24 00:00:00 2022-07-04 19:15:00 Not sure [facility] Alcohol intake 2022-07-04 00:00:00 2022-07-04 00:00:00 Current non-drinker of alcohol (finding) [facility] Tobacco use and exposure 2013-03-24 00:00:00 2013-03-24 00:00:00 Smokeless tobacco non-user [facility] Tobacco Comment 2013-03-24 00:00:00 2013-03-24 00:00:00 states she only smoked once a week ago and has stopped. states only time she smoked [facility] Sex Assigned At 1990 00:00:00 1990 00:00:00 [facility] Smoking Status Start Date Stop Date Source Ex-smoker 2013-03-24 00:00:00 2013-03-24 00:00:00 U [facility] Medications Ordered Medication Name Filled Medication Name Start Date Stop Date Current Medication? Ordering Clinician Indication Dosage Frequency Signature (SIG) Comments Components Source predniSONE (DELTASONE) tablet 60 mg 07-05 00:45: 00 07-05 00:47 :00 No 60mg 60 mg, Oral, ONCE, 1 dose, On Sun07/04/22 at 1945, MICHELLE [facility] valACYclovi r 1 gram tablet 07-04 00:00: 00 07-12 04:59 :00 No [id number] 1g Take 1 tablet by mouth in the morning and 1 tablet at noon and 1 tablet in the evening. Do all this for 7 days. [facility] predniSONE 20 mg tablet 07-04 00:00: 00 07-09 04:59 :00 No [id number] 40mg Take 2 tablets by mouth in the morning for 4 days. [facility] terbinafine HCL 1 % cream 06-01 00:00: 00 Yes [id number] Apply to area(s) 2 (two) times daily. [facility] terbinafine HCL 250 mg tablet 06-01 00:00: 00 Yes [id number] 250mg Take 1 tablet by mouth in the morning. [facility] amoxicillin (TRIMOX) 500 mg capsule 11-05 02:18: 27 11-04 00:00 :00 No 500mg Take 500 mg by mouth 3 (three) times daily. [facility] ALPRAZolam (XANAX) 0.5 mg tablet 11-05 02:18: 21 11-04 00:00 :00 No .5mg Take 0.5 mg by mouth 2 (two) times daily. [facility] acetaminoph en (TYLENOL) 325 mg tablet 11-05 02:18: 18 11-04 00:00 :00 No 650mg Take 650 mg by mouth every 6 (six) hours as needed. [facility] ketorolac (TORADOL) injection 30 mg 04-22 18:00: 00 04-23 17:59 :00 No 30mg 30 mg, Slow IV Push, Q6H, 4 doses, First dose on Basia 04/22/20 at 1200, Last dose on Sun04/23/20 at 0600, Routine [facility] cefTRIAXone (ROCEPHIN) 2,000 mg in NaCl 0.9% (NS) 100 mL MINI-BAG 04-22 17:15: 00 04-22 16:56 :00 No 2000mg 2,000 mg, IV Piggyback, ONCE, 1 dose, Basia 04/22/20 at 1115, 100 mL
Reas on for Anti-Infec tive: Empiric Therapy for Suspected Infection< br>Empiric Therapy Site: Urine
D uration of therapy: 72 hours [facility] NaCl 0.9% (NS) bolus infusion 1,000 mL 04-22 15:30: 00 04-22 16:00 :00 No 1000mL at 999 mL/hr, 1,000 mL, IV Piggyback, ONCE, 1 dose, Basia 04/22/20 at 0930, STAT [facility] ondansetron (ZOFRAN (PF)) injection 4 mg 04-22 14:30: 00 04-22 14:25 :00 No 4mg 4 mg, Slow IV Push, ONCE, 1 dose, Basia 04/22/20 at 0830, Routine [facility] ondansetron 4 mg disintegrat ing tablet 04-22 00:00: 00 11-04 00:00 :00 No [id number] 4mg Take 1 tablet by mouth every 8 (eight) hours as needed for Nausea and Vomiting (N/V). [facility] sulfamethox azole-trime thoprim 800-160 mg per tablet 04-22 00:00: 00 05-07 05:59 :00 No [id number] 1{tbl} Take 1 tablet by mouth 2 (two) times daily for 14 days. [facility] acetaminoph en (TYLENOL) 325 mg tablet 04-17 19:13: 48 Yes 650mg Take 650 mg by mouth every 6 (six) hours as needed. [facility] ALPRAZolam (XANAX) 0.5 mg tablet 2012-04 16:14: 46 Yes .5mg Take 0.5 mg by mouth 2 (two) times daily. [facility] amoxicillin (TRIMOX) 500 mg capsule 2012-04 16:13: 24 Yes 500mg Take 500 mg by mouth 3 (three) times daily. [facility] multivitami n ( VITAMIN) tablet 2012-04 00:00: 00 11-04 00:00 :00 No [id number] 1{tbl} Take 1 Tab by mouth daily. [facility] Vital Signs Vital Name Observation Time Observation Value Comments S ource Systolic blood pressure 2022-07-05 00:15:00 122 mm[Hg] [facility] Diastolic blood pressure 2022-07-05 00:15:00 76 mm[Hg] [facility] Heart rate 2022-07-05 00:15:00 91 /min [facility] Body temperature 2022-07-05 00:15:00 37 Daja [facility] Respiratory rate 2022-07-05 00:15:00 16 /min [facility] Body height 2022-07-05 00:15:00 162.6 cm [facility] Body weight 2022-07-05 00:15:00 95.255 kg [facility] BMI 2022-07-05 00:15:00 36.05 kg/m2 [facility] Oxygen saturation in Arterial blood by Pulse oximetry 2022-07-05 00:15:00 100 /min [facility] Systolic blood pressure 2022-06-24 01:08:13 171 mm[Hg] [facility] Diastolic blood pressure 2022-06-24 01:08:13 100 mm[Hg] [facility] Heart rate 2022-06-24 01:06:00 103 /min [facility] Body temperature 2022-06-24 01:06:00 37.11 Daja [facility] Respiratory rate 2022-06-24 01:06:00 18 /min [facility] Body height 2022-06-24 01:06:00 162.6 cm [facility] Body weight 2022-06-24 01:06:00 96.616 kg [facility] BMI 2022-06-24 01:06:00 36.56 kg/m2 [facility] Oxygen saturation in Arterial blood by Pulse oximetry 2022-06-24 01:06:00 99 /min [facility] Systolic blood pressure 2022-06-02 00:27:00 141 mm[Hg] [facility] Diastolic blood pressure 2022-06-02 00:27:00 60 mm[Hg] [facility] Heart rate 2022-06-02 00:27:00 105 /min [facility] Body temperature 2022-06-02 00:27:00 37 Daja [facility] Respiratory rate 2022-06-02 00:27:00 18 /min [facility] Body weight 2022-06-02 00:27:00 85.276 kg [facility] BMI 2022-06-02 00:27:00 32.27 kg/m2 [facility] Oxygen saturation in Arterial blood by Pulse oximetry 2022-06-02 00:27:00 99 /min [facility] Systolic blood pressure 2020-11-05 05:50:00 136 mm[Hg] [facility] Diastolic blood pressure 2020-11-05 05:50:00 88 mm[Hg] [facility] Heart rate 2020-11-05 05:50:00 85 /min [facility] Respiratory rate 2020-11-05 05:50:00 20 /min [facility] Oxygen saturation in Arterial blood by Pulse oximetry 2020-11-05 05:50:00 100 /min [facility] Body temperature 2020-11-05 02:15:00 37.39 Daja [facility] Body height 2020-11-05 02:15:00 162.6 cm [facility] Body weight 2020-11-05 02:15:00 85.276 kg [facility] BMI 2020-11-05 02:15:00 32.27 kg/m2 [facility] Systolic blood pressure 2020-11-03 20:53:00 134 mm[Hg] [facility] Diastolic blood pressure 2020-11-03 20:53:00 70 mm[Hg] [facility] Heart rate 2020-11-03 20:53:00 91 /min [facility] Body temperature 2020-11-03 20:53:00 37.22 Daja [facility] Respiratory rate 2020-11-03 20:53:00 14 /min [facility] Body weight 2020-11-03 20:53:00 90.719 kg [facility] BMI 2020-11-03 20:53:00 34.33 kg/m2 [facility] Oxygen saturation in Arterial blood by Pulse oximetry 2020-11-03 20:53:00 99 /min [facility] Systolic blood pressure 2020-04-22 17:00:00 115 mm[Hg] [facility] Diastolic blood pressure 2020-04-22 17:00:00 78 mm[Hg] [facility] Heart rate 2020-04-22 17:00:00 79 /min [facility] Respiratory rate 2020-04-22 17:00:00 18 /min [facility] Oxygen saturation in Arterial blood by Pulse oximetry 2020-04-22 17:00:00 97 /min [facility] Body temperature 2020-04-22 15:03:42 37.06 Daja [facility] Body weight 2020-04-22 14:06:00 90.719 kg [facility] BMI 2020-04-22 14:06:00 34.33 kg/m2 [facility] Systolic blood pressure 2020-04-22 17:00:00 115 mm[Hg] [facility] Diastolic blood pressure 2020-04-22 17:00:00 78 mm[Hg] [facility] Heart rate 2020-04-22 17:00:00 79 /min [facility] Respiratory rate 2020-04-22 17:00:00 18 /min [facility] Oxygen saturation in Arterial blood by Pulse oximetry 2020-04-22 17:00:00 97 /min [facility] Body temperature 2020-04-22 15:03:42 37.06 Daja [facility] Body weight 2020-04-22 14:06:00 90.719 kg [facility] BMI 2020-04-22 14:06:00 34.33 kg/m2 [facility] Procedures Procedure Date / Time Performed Performing Clinicia n Source CONSENT/REFUSAL FOR DIAGNOSIS AND TREATMENT 2022-07-05 00:13:23 Doctor Unassigned, [address] [facility] CONSENT/REFUSAL FOR DIAGNOSIS AND TREATMENT 2022-06-24 01:03:56 Doctor Unassigned, [address] [facility] NOTICE OF PRIVACY PRACTICES 2022-06-07 04:06:27 Doctor Unassigned, [address] [facility] CONSENT/REFUSAL FOR DIAGNOSIS AND TREATMENT 2022-06-07 04:06:00 Doctor Unassigned, [address] [facility] CONSENT/REFUSAL FOR DIAGNOSIS AND TREATMENT 2022-06-02 00:14:50 Doctor Unassigned, [address] [facility] COMP. METABOLIC PANEL ([id number]) 2020-11-05 03:28:00 Lashawn Sun [facility] CBC WITH DIFF 2020-11-05 03:28:00 Lashawn Sun [facility] URINALYSIS 2020-11-05 03:28:00 Lashawn Sun [facility] NOTICE OF PRIVACY PRACTICES 2020-11-05 02:00:38 Doctor Unassigned, [address] [facility] CONSENT/REFUSAL FOR DIAGNOSIS AND TREATMENT 2020-11-05 02:00:15 Doctor Unassigned, [address] [facility] NOTICE OF PRIVACY PRACTICES 2020-11-03 20:36:23 Doctor Unassigned, [address] [facility] CONSENT/REFUSAL FOR DIAGNOSIS AND TREATMENT 2020-11-03 20:35:15 Doctor Unassigned, [address] [facility] CT ABDOMEN PELVIS WO CONTRAST 2020-04-22 14:46:00 Abbe Obregon [facility] POCT TEST 2020-04-22 14:25:00 Sandra Obregon [facility] COMP. METABOLIC PANEL ([id number]) 2020-04-22 14:24:00 Abbe Obregon [facility] CBC WITH DIFF 2020-04-22 14:24:00 Abbe Obregon [facility] UR[facility]YSIS 2020-04-22 [facility]:24[facility] 2020-04-22 13:57:03 Doctor Unassigned, [address] [facility] CONSENT/REFUSAL FOR DIAGNOSIS AND TREATMENT 2020-04-22 13:56:47 Doctor Unassigned, [address] [facility] Encounters Start Date/Time End Date/Time Encounter Type Admission Type Attending [facility] Care Facility Care Department Encounter ID Source 2022-07-04 19:18:00 2022-07-04 19:53:00 Emergency X ARLYNSTACITRANG [facility] ERT [id number] [facility] 2022-07-04 19:18:00 2022-07-04 19:53:00 Emergency Tammy Danielpiyush [facility] 1.2.840.114 350.1.13.10 4.2.7.2.686 [id number] [facility] 2022-06-23 20:11:00 2022-06-23 20:32:00 Emergency X ABBE OBREGON [facility] ERT [id number] [facility] 2022-06-23 20:11:00 2022-06-23 20:32:00 Emergency Abbe Obregon [facility] 1.2.840.114 350.1.13.10 4.2.7.2.686 [id number] [facility] 2022-06-06 22:16:00 2022-06-06 22:30:00 Emergency X DOUG DEE [facility] ERT [id number] [facility] 2022-06-06 22:16:00 2022-06-06 22:30:00 Emergency Karieaurea Doug Jones [facility] 1.2.840.114 350.1.13.10 4.2.7.2.686 [id number] [facility] 2022-06-01 18:29:00 2022-06-01 18:46:00 Emergency X МАРИЯ BEE [facility] ERT [id number] [facility] 2022-06-01 18:29:00 2022-06-01 18:46:00 Emergency Мария Bee [facility] 1.2.840.114 350.1.13.10 4.2.7.2.686 [id number] [facility] 2020-11-04 21:22:00 2020-11-05 00:55:00 Emergency Harika Middleton [facility] 1.2.840.114 350.1.13.10 4.2.7.2.686 [id number] [facility] 2020-11-04 21:22:00 2020-11-04 21:22:00 Emergency X Harika MIDDLETON [facility] ERT [id number] [facility] 2020-11-03 15:54:00 2020-11-03 17:59:00 Emergency [facility] 1.2.840.114 350.1.13.10 4.2.7.2.686 [id number] [facility] 2020-11-03 15:35:00 2020-11-03 15:35:00 Emergency X [facility] ERT [id number] [facility] 2020-11-03 00:00:00 2020-11-03 00:00:00 Orders Only Doctor Unassigned, [address] [facility] 1.2.840.114 350.1.13.10 4.2.7.2.686 [id number] [facility] 2020-04-22 08:09:00 2020-04-22 11:33:00 [facility].114 350.1.13.10 4.2.7.2.686 [id number] 2020-04-22 08:09:00 2020-04-22 11:33:00 Emergency Singer [facility] 1.2.840.114 350.1.13.10 4.2.7.2.686 [id number] [facility] 2020-04-22 07:58:00 2020-04-22 07:58:00 Emergency X [facility] ERT [id number] [facility] 2020-04-22 00:00:00 2020-04-22 00:00:00 Orders Only Doctor Unassigned, [address] [facility] 1.2.840.114 350.1.13.10 4.2.7.2.686 [id number] 2020-04-22 00:00:00 2020-04-22 00:00:00 Orders Only Doctor Unassigned, [address] [facility] 1.2.840.114 350.1.13.10 4.2.7.2.686 [id number] [facility] 2019-12-15 00:00:00 2019-12-15 00:00:00 Letter (Out) Doctor Unassigned, [address] [facility] 1.2.840.114 350.1.13.10 4.2.7.2.686 [id number] 2019-12-15 00:00:00 2019-12-15 00:00:00 Letter (Out) Doctor Unassigned, [address] [facility] 1.2.840.114 350.1.13.10 4.2.7.2.686 [id number] [facility] Results Test Description Test Time Test Comments Results Result Co mments Source [facility]. METABOLIC PANEL ([id number])2020-11-05 04:11:13* Test Item Value Reference Range Interpretation Comme nts NA (test code = 2637291237) 138 mmol/L 135-145 K (test code = 9440157315) 3.6 mmol/L 3.5-5.0 CL (test code = 3220153037) 102 mmol/L 98-108 CO2 TOTAL (test code = 7928476272) 27 mmol/L 23-31 AGAP (test code = 9157199993) 2-16 BUN (test code = 2699292790) 16 mg/dL 7-23 GLUCOSE (test code = 7460161504) 75 mg/dL 70-110 CREATININE (test code = 8956616702) 1.11 mg/dL 0.50-1.04 H TOTAL BILI (test code = 9703944390) 0.3 mg/dL 0.1-1.1 CALCIUM (test code = 9596634199) 9.5 mg/dL 8.6-10.6 T PROTEIN (test code = 4746564202) 7.2 g/dL 6.3-8.2 ALBUMIN (test code = 3244345742) 4.2 g/dL 3.5-5.0 ALK PHOS (test code = 2415059337) 62 U/L 34-122 ALTv (test code = 1742-6) 17 U/L 5-35 AST(SGOT) (test code = 7733698885) 29 U/L 13-40 eGFR (test code = 2767132054) mL/min/1.73m2 EDGAR (test code = EDGAR) Association [...] imaging tests). Lab Interpretation (test code = 63145-3) Abnormal [facility] WITH [id number] 03:40:30* Test Item Value Reference Range Interpretation Comme nts WBC (test code = 6690-2) See_Comment [[employer]] The system which generated this result transmitted reference range: 4.30 - 11.10 10*3/?L. The reference range was not used to interpret this result as normal/abnormal. RBC (test code = 789-8) See_Comment [[employer]] The system which generated this result transmitted [...] 33.2 g/dL 31.6-35.1 RDW-SD (test code = 48844-5) 42.9 fL 39.0-49.9 RDW-CV (test code = 788-0) 12.9 % 12.0-15.5 PLT (test code = 777-3) See_Comment [Automated messa ge] The system which generated this result transmitted reference range: 166 - 358 10*3/?L. The reference range was not used to interpret this result as normal/abnormal. MPV (test code = 25055-9) 9.4 fL 9.5-12.9 L NRBC/100 WBC (test code = 0619060230) See_Comment [Automated [employer]ug[employer] ssage] The system which generated this result transmitted reference range: 0.0 - 10.0 /100 WBCs. The reference range was not used to interpret this result as normal/abnormal. NRBC x10^3 (test code = 4866356519) <0.01 See_Comment [Automated messa ge] The system which generated this result transmitted reference range: 10*3/?L. The reference range was not used to interpret this result as normal/abnormal. GRAN MAT (NEUT) % (test code = 770-8) 56.1 % IMM GRAN % (test code = 0443408370) 0.20 % LYMPH % (test code = 736-9) 32.7 % MONO % (test code = 5905-5) 9.0 % EOS % (test code = 713-8) 1.6 % BASO % (test code = 706-2) 0.4 % GRAN MAT x10^3(ANC) (test code = 3798466600) 5.02 10*3/uL 1.88-7.09 IMM GRAN x10^3 (test code = 8452834643) <0.03 0.00-0.06 LYMPH x10^3 (test code = 731-0) 2.93 10*3/uL 1.32-3.29 MONO x10^3 (test code = 742-7) 0.81 10*3/uL 0.33-0.92 EOS x10^3 (test code = 711-2) 0.14 10*3/uL 0.03-0.39 BASO x10^3 (test code = 704-7) 0.04 10*3/uL 0.01-0.07 Lab Interpretation (test code = 33027-6) Abnormal [facility] WITH [id number] 15:23:00* Test Item Value Reference Range Interpretation [...] 33.2 g/dL 31.6-35.1 RDW-SD (test code = 43912-1) 41.8 fL 39-49.9 RDW-CV (test code = 788-0) 12.3 % 12-15.5 PLT (test code = 777-3) See_Comment [Automated messa ge] The system which generated this result transmitted reference range: 166 - 358 10*3/?L. The reference range was not used to interpret this result as normal/abnormal. MPV (test code = 65605-9) 9.5 fL 9.5-12.9 NRBC/100 WBC (test code = 8735637688) See_Comment [Automated Jugo ssage] The system which generated this result transmitted reference range: 0.0 - 10.0 /100 WBCs. The reference range was not used to interpret this result as normal/abnormal. NRBC x10^3 (test code = 8137098426) <0.01 See_Comment [Automated messa ge] The system which generated this result transmitted reference range: 10*3/?L. The reference range was not used to interpret this result as normal/abnormal. GRAN MAT (NEUT) % (test code = 770-8) 74.1 % IMM GRAN % (test code = 7983852822) 0.40 % LYMPH % (test code = 736-9) 13.0 % MONO % (test code = 5905-5) 11.5 % EOS % (test code = 713-8) 0.8 % BASO % (test code = 706-2) 0.2 % GRAN MAT x10^3(ANC) (test code = 6049820044) 9.93 10*3/uL 1.88-7.09 H IMM GRAN x10^3 (test code = 7700669927) 0.06 10*3/uL 0-0.06 LYMPH x10^3 (test code = 731-0) 1.74 10*3/uL 1.32-3.29 MONO x10^3 (test code = 742-7) 1.55 10*3/uL 0.33-0.92 H EOS x10^3 (test code = 711-2) 0.11 10*3/uL 0.03-0.39 BASO x10^3 (test code = 704-7) 0.03 10*3/uL 0.01-0.07 Lab Interpretation (test code = 50583-1) [facility] [id number] 15:12:23CT Abdomen and Pelvis without contrast. CLINICAL [...] urinalysisas well as blood test results. [facility], Radiant Results Inft User - 04/22/2020 9:13 [...] and urinalysisas well as blood test results. [facility]. METABOLIC PANEL ([id number])2020-04-22 15:01:00* Test Item Value Reference Range Interpretation Comme nts NA (test code = 6422569800) 135 mmol/L 135-145 K (test code = 3504958233) 3.6 mmol/L 3.5-5 CL (test code = 8644116040) 103 mmol/L 98-108 CO2 TOTAL (test code = 5101570090) 24 mmol/L 23-31 AGAP (test code = 5497504447) 2-16 BUN (test code = 3670706826) 9 mg/dL 7-23 GLUCOSE (test code = 2576654184) 108 mg/dL 70-110 CREATININE (test code = 9137831751) 0.82 mg/dL 0.5-1.04 TOTAL BILI (test code = 0923355126) 0.5 mg/dL 0.1-1.1 CALCIUM (test code = 1227284808) 9.1 mg/dL 8.6-10.6 T PROTEIN (test code = 0354988416) 7.6 g/dL 6.3-8.2 ALBUMIN (test code = 6715153215) 4.3 g/dL 3.5-5 ALK PHOS (test code = 9727408661) 79 U/L 34-122 ALTv (test code = 1742-6) 18 U/L 5-35 AST(SGOT) (test code = 5016725545) 24 U/L 13-40 eGFR Calculation (Non-) (test code = 3925901188) mL/min/1.73m2 eGFR Calculation () (test code = 9738852426) mL/min/1.73m2 EDGAR (test code = EDGAR) Association [...] or urine or abnormalities in imaging tests). [facility]* Test Item Value Reference Range Interpretation Comme nts APPEARANCE (test code = 9241628162) Hazy Clear A COLOR (test code = 9918868094) Yellow Yellow PH (test code = 0169129006) 4.8-8.0 SP GRAVITY (test code = 6669085598) 1.003-1.030 GLU U QUAL (test code = 8577606056) Normal Normal BLOOD (test code = 2260365751) 1+ Negative A KETONES (test code = 3761310041) 5 mg/dL Negative A PROTEIN (test code = 2887-8) Negative Negative UROBILIN (test code = 0764459574) Normal Normal BILIRUBIN (test code = 7809717590) Negative Negative NITRITE (test code = 7584109842) Positive Negative A LEUK VERNA (test code = 1294977824) 25/uL Negative A RBC/HPF (test code = 2999696735) See_Comment [[employer]] The system which generated this result transmitted reference range: 0 - 3 HPF. The reference range was not used to interpret this result as normal/abnormal. WBC/HPF (test code = 0370591574) See_Comment H [Automated messa ge] The system which generated this result transmitted reference range: 0 - 5 HPF. The reference range was not used to interpret this result as normal/abnormal. BACTERIA (test code = 1098407931) Moderate Negative A MUCOUS (test code = 3806335431) Moderate Negative LPF A SQ EPITH (test code = 2301272796) HPF Lab Interpretation (test code = 95408-3) [id number]:00* Test Item Value Reference Range Interpretation Comme nts POCT PREG (test code = 1605) negative On board controls acceptable with C Line (test code = 3574) present POCT PREG LOT # (test code = 3575) [id number] POCT PREG TEST DATE ( test code = 3576) 2021-11-30 Lab Interpretation (test cod e = 25853-7) Normal [facility]"
[2024-11-25] MEDS ORDERED: DIAZEPAM 5 MG TABLET ONE (17:15)
--- NOTE | 2024-11-25 18:20 | EDPHYS ---
Physician Documentation [facility] Name: Sharon Bee Age: 34 yrs Sex: Female : 1990 Arrival Date: 11/25/2024 Time: 16:14 Bed 3 Private MD: ED Physician Manolo Bravo HPI: 11/25 17:04 This 34 yrs old Female presents to ER via Ambulatory with complaints of rn Anxiety. 17:04 Patient reports having anxiety attack. Found out her was cheating on her and no rn longer has prescription anxiety medication. Came in for medication. When waiting in lobby she was notified that a family member making her symptoms worse. Denies fever or chills. States this feels exactly like an anxiety attack to her. Denies . Used to take Xanax. Historical: - Allergies: 16:57 No Known Allergies; jl7 - PMHx: 16:57 Heart Murmur; Kidney Infections; jl7 - Immunization history:: Adult Immunizations unknown. - Infectious Disease History:: Denies. - Social history:: Smoking status: Reported history of juuling and/or vaping. - Family history:: not pertinent. - Hospitalizations: : No recent hospitalization is reported. ROS: 17:04 Constitutional: Negative for fever, chills, and weight loss, Cardiovascular: Positive rn for heart racing Respiratory: Positive for shortness of breath Abdomen/GI: Negative for abdominal pain, nausea, vomiting, diarrhea, and constipation, MS/Extremity: Negative for injury and deformity, Skin: Negative for injury, rash, and discoloration, Neuro: Negative for headache, weakness, numbness, tingling, and seizure, Exam: 17:05 Constitutional: This is a well developed, well nourished patient who is awake, alert, rn tearful Cardiovascular: Regular rate and rhythm. No pulse deficits. Respiratory: Mild hyperventilation noted, can slow down breaths with coaching Vital Signs: 16:56 BP 161 / 108; Pulse 89; Resp 17; Temp 97; Pulse Ox 98% ; Weight 97.52 kg; Height 5 ft. jl7 4 in. ; Pain 0/10; 16:56 Body Mass Index 36.90 (97.52 kg, 162.56 cm) jl7 16:56 Pain Scale: Adult jl7 MDM: 16:17 Medical Screening Exam initiated rn 18:16 Differential Diagnosis Anxiety. Data reviewed: vital signs, nurses notes, and as a rn result, I will discharge patient. Care significantly affected by the following chronic conditions: Anxiety. Counseling: I had a detailed discussion with the patient and/or guardian regarding the historical points, exam findings, and any diagnostic results supporting the discharge/admit diagnosis, the need for outpatient follow up, to return to the emergency department if symptoms worsen or persist or if there are any questions or concerns that arise at home. Response to treatment: the patient's symptoms have markedly improved after treatment, and as a result, I will discharge patient. Special discussion: I discussed with the patient/guardian in detail that at this point there is no indication for admission to the hospital. It is understood, however, that if the symptoms persist or worsen the patient needs to return immediately for re-evaluation. Based on the history and exam findings, there is no indication for further emergent testing or inpatient evaluation. I discussed with the patient/guardian the need to see the psychiatrist for further evaluation of the symptoms. ED course: Patient feels much better, resting comfortably, has a ride home. Will discharge home with referral to psychiatry.. Administered Medications: 17:10 Drug: Diazepam PO 5 mg PO once Route: PO; bp Disposition Summary: 11/25/24 18:19 Discharge Ordered Notes: Location: Home rn Problem: chronic rn Symptoms: have improved rn Condition: Stable rn Diagnosis - Anxiety disorder, unspecified rn - Acute stress reaction rn Followup: rn - With: Private Physician - When: As needed - Reason: Recheck today's complaints, Re-evaluation by your physician Discharge Instructions: - Discharge Summary Sheet rn - Stress, Adult rn - Generalized Anxiety Disorder, Adult rn - Managing Anxiety, Adult rn Forms: - Medication Reconciliation Form rn - Antibiotic boot turner - Prescription Opioid Use rn - Patient Portal Instructions rn - Leadership Thank You Letter rn - Work release form jl7 Signatures: Manolo Bravo MD MD rn Leal, Jahala, RN RN jl7 Cresencio Graham RN RN bp
--- NOTE | 2024-11-25 18:20 | ER ---
Nurse's Notes [facility] Name: Sharon Bee Age: 34 yrs Sex: Female : 1990 Arrival Date: 11/25/2024 Time: 16:14 Bed 3 Private MD: Diagnosis: Anxiety disorder, unspecified;Acute stress reaction Presentation: 11/25 16:56 Chief complaint: Patient states: Reports anxiety, dealing with a lot of personal stuff jl7 with spouse, just got notified that aunt was killed in MVC in [place]. Coronavirus screen: At this time, the client does not indicate any symptoms associated with coronavirus-19. Ebola Screen: No symptoms or risks identified at this time. Initial Sepsis Screen: Does the patient meet any 2 criteria? No. Patient's initial sepsis screen is negative. Does the patient have a suspected source of infection? No. Patient's initial sepsis screen is negative. Risk Assessment: Do you want to hurt yourself or someone else? Patient reports no desire to harm self or others. Onset of symptoms was November 25, 2024. 16:56 Method Of Arrival: Ambulatory [facility] 16:56 Acuity: MARZENA 4 jl7 Triage Assessment: 16:57 General: Appears in no apparent distress. uncomfortable, Behavior is cooperative, jl7 anxious, crying. Pain: Denies pain. Historical: - Allergies: 16:57 No Known Allergies; jl7 - PMHx: 16:57 Heart Murmur; Kidney Infections; jl7 - Immunization history:: Adult Immunizations unknown. - Infectious Disease History:: Denies. - Social history:: Smoking status: Reported history of juuling and/or vaping. - Family history:: not pertinent. - Hospitalizations: : No recent hospitalization is reported. Vital Signs: 16:56 BP 161 / 108; Pulse 89; Resp 17; Temp 97; Pulse Ox 98% ; Weight 97.52 kg; Height 5 ft. jl7 4 in. ; Pain 0/10; 16:56 Body Mass Index 36.90 (97.52 kg, 162.56 cm) jl7 16:56 Pain Scale: Adult jl7 ED Course: 16:15 Patient arrived in ED. cj3 16:16 Manolo Bravo MD is Attending Physician. rn 16:57 Triage completed. jl7 16:57 Arm band placed on right wrist. jl7 17:01 Cresencio Graham, RN is Primary Nurse. bp Administered Medications: 17:10 Drug: Diazepam PO 5 mg PO once Route: PO; bp Outcome: 18:19 Discharge ordered by . rn 18:43 Patient left the ED. bp Signatures: Manolo Bravo MD MD rn Joanne Jesus RN RN jl7 Cresencio Graham, RN RN bp Cha Romo 3
[2024-11-25 21:29] VITALS: BP 161/108; TEMP 97; O2SAT 98
== END 2024-11-25 18:43 | disposition home or self-care (01) ==
LOC: ER 16:14
DX: F41.9 Anxiety disorder, unspecified (principal); F43.0 Acute stress reaction

== ENCOUNTER 2024-12-18 16:43 | Emergency (ER) | payer SELFPAY ==
--- OUTSIDE RECORDS SUMMARY | 2024-12-18 16:47 | XMS REPORT | Continuity of Care Document ---
Author Name Unknown Address [address] [address] [place] [address] [facility] Address [address] [place] [address] Care Team Providers Care Client Engagement Specialist Name Role Phone Pcp, Patient Does Not Have A Primary Care Physic allegra TRANG ADAMS Attending Clinician Unavaila Trang Brower Attending Clinician [phone]- [phone] ABBE OBREGON Attending Clinician Unavailable Abbe Obregon DO Attending Clinician [phone] DOUG DEE Attending Clinician Unavailable Doug Dee MD Attending Clinician [phone] МАРИЯ BEE Attending Clinician Unavailable Мария Bee MD Attending Clinician [phone] Harika Iqbal Attending Clinician [phone] Harika MIDDLETON Attending Clinician Unavailable Doctor Unassigned, [place] Attending Clinician U navailable Payers Payer Name Policy Type Policy Number Effective Date Expirati on Date Source [facility] - OUT OF STATE [id number] 2013 00:00:00 Problems Condition Name Condition Details Condition Category Status Onset Date Resolution Date Last Treatment Date Treating Clinician Comments Source Uterine size-date discrepanc y, antepartum Uterine size-date discrepanc y, antepartum Disease [facility] 04[facility]14 [facility]00[facility] Nausea without vomiting Nausea without vomiting Disease Active 04-14 00:00: 00 Overview: Formattin g of this note might be different from the original. ICD10 Diagnosis Term Assistant Manager Pt Utility [facility] Rubella immune Rubella immune Disease Active 2012-04 00:00: 00 [facility] Immune to varicella Immune to varicella Disease Active 2012-04 00:00: 00 [facility] H/O drug abuse H/O drug abuse Disease Active 2012-04 00:00: 00 Overview: Formattin g of this note might be different from the original. Marijuana . Positive drug screen in 2010 for THC [facility] Hepatitis C carrier Hepatitis C carrier Disease Active 2012-04 00:00: 00 [facility] Generalize d anxiety disorder Generalize d anxiety disorder Disease Active 2012-04 00:00: 00 [facility] High-risk High-risk Disease Active 2012-04 00:00: 00 Overview: Formattin g of this note might be different from the original. ICD10 Diagnosis Term Assistant Manager Pt Utility [facility] Allergies, Adverse Reactions, Alerts Allergy Name Allergy Type Status Severity Reaction(s) Onset Date Inactive Date Treating Clinician Comments Source NO KNOWN ALLERGIE S Drug Class Active [facility] Social History Social Habit Start Date Stop Date Quantity Comments Source History of tobacco use Current smoker [facility] Exposure to SARS-CoV-2 (event) 2022-06-24 00:00:00 2022-07-04 19:15:00 Not sure [facility] Alcohol intake 2022-07-04 00:00:00 2022-07-04 00:00:00 Current non-drinker of alcohol (finding) [facility] Tobacco use and exposure 2013-03-24 00:00:00 2013-03-24 00:00:00 Smokeless tobacco non-user [facility] Tobacco Comment 2013-03-24 00:00:00 2013-03-24 00:00:00 states she only smoked once a week ago and has stopped. states only time she smoked [facility] Sex Assigned At 1990 00:00:00 1990 00:00:00 [facility] Smoking Status Start Date Stop Date Source Ex-smoker 2013-03-24 00:00:00 2013-03-24 00:00:00 [facility] Medications Ordered Medication Name Filled Medication Name Start Date Stop Date Current Medication? Ordering Clinician Indication Dosage Frequency Signature (SIG) Comments Components Source predniSONE (DELTASONE) tablet 60 mg 07-05 00:45: 00 07-05 00:47 :00 No 60mg 60 mg, Oral, ONCE, 1 dose, On Sun07/04/22 at 1945, MICHELLE [facility] valACYclovi r 1 gram tablet 07-04 00:00: 00 07-12 04:59 :00 No [id number] 1g Take 1 tablet by mouth in the morning and 1 tablet at noon and 1 tablet in the evening. Do all this for 7 days. [facility] predniSONE 20 mg tablet 07-04 00:00: 00 07-09 04:59 :00 No [id number] 40mg Take 2 tablets by mouth in the morning for 4 days. [facility] terbinafine HCL 1 % cream 06-01 00:00: 00 Yes [id number] Apply to area(s) 2 (two) times daily. [facility] terbinafine HCL 250 mg tablet 06-01 00:00: 00 Yes [id number] 250mg Take 1 tablet by mouth in the morning. [facility] amoxicillin (TRIMOX) 500 mg capsule 11-05 02:18: 27 11-04 00:00 :00 No 500mg Take 500 mg by mouth 3 (three) times daily. [facility] ALPRAZolam (XANAX) 0.5 mg tablet 11-05 02:18: 21 11-04 00:00 :00 No .5mg Take 0.5 mg by mouth 2 (two) times daily. [facility] acetaminoph en (TYLENOL) 325 mg tablet 11-05 02:18: 18 11-04 00:00 :00 No 650mg Take 650 mg by mouth every 6 (six) hours as needed. [facility] ketorolac (TORADOL) injection 30 mg 04-22 18:00: 00 04-23 17:59 :00 No 30mg 30 mg, Slow IV Push, Q6H, 4 doses, First dose on Basia 04/22/20 at 1200, Last dose on Sun04/23/20 at 0600, Routine [facility] cefTRIAXone (ROCEPHIN) 2,000 mg in NaCl 0.9% (NS) 100 mL MINI-BAG 04-22 17:15: 00 04-22 16:56 :00 No 2000mg 2,000 mg, IV Piggyback, ONCE, 1 dose, Basia 04/22/20 at 1115, 100 mL
Reas on for Anti-Infec tive: Empiric Therapy for Suspected Infection< br>Empiric Therapy Site: Urine
D uration of therapy: 72 hours [facility] NaCl 0.9% (NS) bolus infusion 1,000 mL 04-22 15:30: 00 04-22 16:00 :00 No 1000mL at 999 mL/hr, 1,000 mL, IV Piggyback, ONCE, 1 dose, Basia 04/22/20 at 0930, STAT [facility] ondansetron (ZOFRAN (PF)) injection 4 mg 04-22 14:30: 00 04-22 14:25 :00 No 4mg 4 mg, Slow IV Push, ONCE, 1 dose, Basia 04/22/20 at 0830, Routine [facility] ondansetron 4 mg disintegrat ing tablet 04-22 00:00: 00 11-04 00:00 :00 No [id number] 4mg Take 1 tablet by mouth every 8 (eight) hours as needed for Nausea and Vomiting (N/V). [facility] sulfamethox azole-trime thoprim 800-160 mg per tablet 04-22 00:00: 00 05-07 05:59 :00 No [id number] 1{tbl} Take 1 tablet by mouth 2 (two) times daily for 14 days. [facility] acetaminoph en (TYLENOL) 325 mg tablet 04-17 19:13: 48 Yes 650mg Take 650 mg by mouth every 6 (six) hours as needed. [facility] ALPRAZolam (XANAX) 0.5 mg tablet 2012-04 16:14: 46 Yes .5mg Take 0.5 mg by mouth 2 (two) times daily. [facility] amoxicillin (TRIMOX) 500 mg capsule 2012-04 16:13: 24 Yes 500mg Take 500 mg by mouth 3 (three) times daily. [facility] multivitami n ( VITAMIN) tablet 2012-04 00:00: 00 11-04 00:00 :00 No [id number] 1{tbl} Take 1 Tab by mouth daily. [facility] Vital Signs Vital Name Observation Time Observation Value Comments S ource Systolic blood pressure 2022-07-05 00:15:00 122 mm[Hg] [facility] Diastolic blood pressure 2022-07-05 00:15:00 76 mm[Hg] [facility] Heart rate 2022-07-05 00:15:00 91 /min [facility] Body temperature 2022-07-05 00:15:00 37 Daja [facility] Respiratory rate 2022-07-05 00:15:00 16 /min [facility] Body height 2022-07-05 00:15:00 162.6 cm [facility] Body weight 2022-07-05 00:15:00 95.255 kg [facility] BMI 2022-07-05 00:15:00 36.05 kg/m2 [facility] Oxygen saturation in Arterial blood by Pulse oximetry 2022-07-05 00:15:00 100 /min [facility] Systolic blood pressure 2022-06-24 01:08:13 171 mm[Hg] [facility] Diastolic blood pressure 2022-06-24 01:08:13 100 mm[Hg] [facility] Heart rate 2022-06-24 01:06:00 103 /min [facility] Body temperature 2022-06-24 01:06:00 37.11 Daja [facility] Respiratory rate 2022-06-24 01:06:00 18 /min [facility] Body height 2022-06-24 01:06:00 162.6 cm [facility] Body weight 2022-06-24 01:06:00 96.616 kg [facility] BMI 2022-06-24 01:06:00 36.56 kg/m2 [facility] Oxygen saturation in Arterial blood by Pulse oximetry 2022-06-24 01:06:00 99 /min [facility] Systolic blood pressure 2022-06-02 00:27:00 141 mm[Hg] [facility] Diastolic blood pressure 2022-06-02 00:27:00 60 mm[Hg] [facility] Heart rate 2022-06-02 00:27:00 105 /min [facility] Body temperature 2022-06-02 00:27:00 37 Daja [facility] Respiratory rate 2022-06-02 00:27:00 18 /min [facility] Body weight 2022-06-02 00:27:00 85.276 kg [facility] BMI 2022-06-02 00:27:00 32.27 kg/m2 [facility] Oxygen saturation in Arterial blood by Pulse oximetry 2022-06-02 00:27:00 99 /min [facility] Systolic blood pressure 2020-11-05 05:50:00 136 mm[Hg] [facility] Diastolic blood pressure 2020-11-05 05:50:00 88 mm[Hg] [facility] Heart rate 2020-11-05 05:50:00 85 /min [facility] Respiratory rate 2020-11-05 05:50:00 20 /min [facility] Oxygen saturation in Arterial blood by Pulse oximetry 2020-11-05 05:50:00 100 /min [facility] Body temperature 2020-11-05 02:15:00 37.39 Daja [facility] Body height 2020-11-05 02:15:00 162.6 cm [facility] Body weight 2020-11-05 02:15:00 85.276 kg [facility] BMI 2020-11-05 02:15:00 32.27 kg/m2 [facility] Systolic blood pressure 2020-11-03 20:53:00 134 mm[Hg] [facility] Diastolic blood pressure 2020-11-03 20:53:00 70 mm[Hg] [facility] Heart rate 2020-11-03 20:53:00 91 /min [facility] Body temperature 2020-11-03 20:53:00 37.22 Daja [facility] Respiratory rate 2020-11-03 20:53:00 14 /min [facility] Body weight 2020-11-03 20:53:00 90.719 kg [facility] BMI 2020-11-03 20:53:00 34.33 kg/m2 [facility] Oxygen saturation in Arterial blood by Pulse oximetry 2020-11-03 20:53:00 99 /min [facility] Systolic blood pressure 2020-04-22 17:00:00 115 mm[Hg] [facility] Diastolic blood pressure 2020-04-22 17:00:00 78 mm[Hg] [facility] Heart rate 2020-04-22 17:00:00 79 /min [facility] Respiratory rate 2020-04-22 17:00:00 18 /min [facility] Oxygen saturation in Arterial blood by Pulse oximetry 2020-04-22 17:00:00 97 /min [facility] Body temperature 2020-04-22 15:03:42 37.06 Daja [facility] Body weight 2020-04-22 14:06:00 90.719 kg [facility] BMI 2020-04-22 14:06:00 34.33 kg/m2 [facility] Systolic blood pressure 2020-04-22 17:00:00 115 mm[Hg] [facility] Diastolic blood pressure 2020-04-22 17:00:00 78 mm[Hg] [facility] Heart rate 2020-04-22 17:00:00 79 /min [facility] Respiratory rate 2020-04-22 17:00:00 18 /min [facility] Oxygen saturation in Arterial blood by Pulse oximetry 2020-04-22 17:00:00 97 /min [facility] Body temperature 2020-04-22 15:03:42 37.06 Daja [facility] Body weight 2020-04-22 14:06:00 90.719 kg [facility] BMI 2020-04-22 14:06:00 34.33 kg/m2 [facility] Procedures Procedure Date / Time Performed Performing Clinicia n Source CONSENT/REFUSAL FOR DIAGNOSIS AND TREATMENT 2022-07-05 00:13:23 Doctor Unassigned, [place] [facility] CONSENT/REFUSAL FOR DIAGNOSIS AND TREATMENT 2022-06-24 01:03:56 Doctor Unassigned, [place] [facility] NOTICE OF PRIVACY PRACTICES 2022-06-07 04:06:27 Doctor Unassigned, [place] [facility] CONSENT/REFUSAL FOR DIAGNOSIS AND TREATMENT 2022-06-07 04:06:00 Doctor Unassigned, [place] [facility] CONSENT/REFUSAL FOR DIAGNOSIS AND TREATMENT 2022-06-02 00:14:50 Doctor Unassigned, [place] [facility] COMP. METABOLIC PANEL ([id number]) 2020-11-05 03:28:00 Lashawn Sun [facility] CBC WITH DIFF 2020-11-05 03:28:00 Lashawn Sun [facility] URINALYSIS 2020-11-05 03:28:00 Lashawn Sun [facility] NOTICE OF PRIVACY PRACTICES 2020-11-05 02:00:38 Doctor Unassigned, [place] [facility] CONSENT/REFUSAL FOR DIAGNOSIS AND TREATMENT 2020-11-05 02:00:15 Doctor Unassigned, [place] [facility] NOTICE OF PRIVACY PRACTICES 2020-11-03 20:36:23 Doctor Unassigned, [place] [facility] CONSENT/REFUSAL FOR DIAGNOSIS AND TREATMENT 2020-11-03 20:35:15 Doctor Unassigned, [place] [facility] CT ABDOMEN PELVIS WO CONTRAST 2020-04-22 14:46:00 Abbe Obregon [facility] POCT TEST 2020-04-22 14:25:00 Sandra Obregon [facility] COMP. METABOLIC PANEL ([id number]) 2020-04-22 14:24:00 Abbe Obregon [facility] CBC WITH DIFF 2020-04-22 14:24:00 Abbe Obregon [facility] UR[facility]YSIS 2020-04-22 [facility]:24[facility]ACT[facility] 2020-04-22 13:57:03 Doctor Unassigned, [place] [facility] CONSENT/REFUSAL FOR DIAGNOSIS AND TREATMENT 2020-04-22 13:56:47 Doctor Unassigned, [place] [facility] Encounters Start Date/Time End Date/Time Encounter Type Admission Type Attending [facility] Care Facility Care Department Encounter ID Source 2022-07-04 19:18:00 2022-07-04 19:53:00 Emergency X ARLYNSTACITRANG [facility] ERT [id number] [facility] 2022-07-04 19:18:00 2022-07-04 19:53:00 Emergency Tammy Danielpiyush [facility] 1.2.840.114 350.1.13.10 4.2.7.2.686 [id number] [facility] 2022-06-23 20:11:00 2022-06-23 20:32:00 Emergency X ABBE OBREGON [facility] ERT [id number] [facility] 2022-06-23 20:11:00 2022-06-23 20:32:00 Emergency Abbe Obregon [facility] 1.2.840.114 350.1.13.10 4.2.7.2.686 [id number] [facility] 2022-06-06 22:16:00 2022-06-06 22:30:00 Emergency X DOUG DEE [facility] ERT [id number] [facility] 2022-06-06 22:16:00 2022-06-06 22:30:00 Emergency Karieaurea Doug Jones [facility] 1.2.840.114 350.1.13.10 4.2.7.2.686 [id number] [facility] 2022-06-01 18:29:00 2022-06-01 18:46:00 Emergency X МАРИЯ BEE [facility] ERT [id number] [facility] 2022-06-01 18:29:00 2022-06-01 18:46:00 Emergency Мария Bee [facility] 1.2.840.114 350.1.13.10 4.2.7.2.686 [id number] [facility] 2020-11-04 21:22:00 2020-11-05 00:55:00 Emergency Harika Middleton [facility] 1.2.840.114 350.1.13.10 4.2.7.2.686 [id number] [facility] 2020-11-04 21:22:00 2020-11-04 21:22:00 Emergency X Harika MIDDLETON [facility] ERT [id number] [facility] 2020-11-03 15:54:00 2020-11-03 17:59:00 Emergency [facility] 1.2.840.114 350.1.13.10 4.2.7.2.686 [id number] [facility] 2020-11-03 15:35:00 2020-11-03 15:35:00 Emergency X [facility] ERT [id number] [facility] 2020-11-03 00:00:00 2020-11-03 00:00:00 Orders Only Doctor Unassigned, [place] [facility] 1.2.840.114 350.1.13.10 4.2.7.2.686 [id number] [facility] 2020-04-22 08:09:00 2020-04-22 11:33:00 [facility] 1.2.840.114 350.1.13.10 4.2.7.2.686 [id number] [id number] 2020-04-22 08:09:00 2020-04-22 11:33:00 Emergency [facility] 1.2.840.114 350.1.13.10 4.2.7.2.686 [id number] [facility] 2020-04-22 07:58:00 2020-04-22 07:58:00 Emergency X [facility] ERT [id number] [facility] 2020-04-22 00:00:00 2020-04-22 00:00:00 Orders Only Doctor Unassigned, [place] [facility] 1.2.840.114 350.1.13.10 4.2.7.2.686 [id number] 2020-04-22 00:00:00 2020-04-22 00:00:00 Orders Only Doctor Unassigned, [place] [facility] 1.2.840.114 350.1.13.10 4.2.7.2.686 [id number] [facility] 2019-12-15 00:00:00 2019-12-15 00:00:00 Letter (Out) Doctor Unassigned, [place] [facility] 1.2.840.114 350.1.13.10 4.2.7.2.686 [id number] 2019-12-15 00:00:00 2019-12-15 00:00:00 Letter (Out) Doctor Unassigned, [place] [facility] 1.2.840.114 350.1.13.10 4.2.7.2.686 [id number] [facility] Results Test Description Test Time Test Comments Results Result Co mments Source [facility]. METABOLIC PANEL ([id number])2020-11-05 04:11:13* Test Item Value Reference Range Interpretation Comme nts NA (test code = 3221022414) 138 mmol/L 135-145 K (test code = 4819716616) 3.6 mmol/L 3.5-5.0 CL (test code = 0802698444) 102 mmol/L 98-108 CO2 TOTAL (test code = 9600957136) 27 mmol/L 23-31 AGAP (test code = 8946372735) 2-16 BUN (test code = 7284218790) 16 mg/dL 7-23 GLUCOSE (test code = 0866309109) 75 mg/dL 70-110 CREATININE (test code = 9375696018) 1.11 mg/dL 0.50-1.04 H TOTAL BILI (test code = 3159215796) 0.3 mg/dL 0.1-1.1 CALCIUM (test code = 7610463044) 9.5 mg/dL 8.6-10.6 T PROTEIN (test code = 4201377182) 7.2 g/dL 6.3-8.2 ALBUMIN (test code = 2642000533) 4.2 g/dL 3.5-5.0 ALK PHOS (test code = 4131653176) 62 U/L 34-122 ALTv (test code = 1742-6) 17 U/L 5-35 AST(SGOT) (test code = 6693425162) 29 U/L 13-40 eGFR (test code = 0051936470) mL/min/1.73m2 EDGAR (test code = EDGAR) Association [...] imaging tests). Lab Interpretation (test code = 10748-2) Abnormal [facility] WITH [id number] 03:40:30* Test Item Value Reference Range Interpretation Comme nts WBC (test code = 6690-2) See_Comment [[employer]] The system which generated this result transmitted reference range: 4.30 - 11.10 10*3/?L. The reference range was not used to interpret this result as normal/abnormal. RBC (test code = 789-8) See_Comment [[employer]] The system which generated this result transmitted [...] 33.2 g/dL 31.6-35.1 RDW-SD (test code = 76739-8) 42.9 fL 39.0-49.9 RDW-CV (test code = 788-0) 12.9 % 12.0-15.5 PLT (test code = 777-3) See_Comment [Automated messa ge] The system which generated this result transmitted reference range: 166 - 358 10*3/?L. The reference range was not used to interpret this result as normal/abnormal. MPV (test code = 02753-6) 9.4 fL 9.5-12.9 L NRBC/100 WBC (test code = 9505162761) See_Comment [Automated [employer] ssage] The system which generated this result transmitted reference range: 0.0 - 10.0 /100 WBCs. The reference range was not used to interpret this result as normal/abnormal. NRBC x10^3 (test code = 6742669467) <0.01 See_Comment [Automated messa ge] The system which generated this result transmitted reference range: 10*3/?L. The reference range was not used to interpret this result as normal/abnormal. GRAN MAT (NEUT) % (test code = 770-8) 56.1 % IMM GRAN % (test code = 4704732702) 0.20 % LYMPH % (test code = 736-9) 32.7 % MONO % (test code = 5905-5) 9.0 % EOS % (test code = 713-8) 1.6 % BASO % (test code = 706-2) 0.4 % GRAN MAT x10^3(ANC) (test code = 2291471916) 5.02 10*3/uL 1.88-7.09 IMM GRAN x10^3 (test code = 2633226671) <0.03 0.00-0.06 LYMPH x10^3 (test code = 731-0) 2.93 10*3/uL 1.32-3.29 MONO x10^3 (test code = 742-7) 0.81 10*3/uL 0.33-0.92 EOS x10^3 (test code = 711-2) 0.14 10*3/uL 0.03-0.39 BASO x10^3 (test code = 704-7) 0.04 10*3/uL 0.01-0.07 Lab Interpretation (test code = 13448-7) Abnormal [facility] WITH [id number] 15:23:00* Test Item Value Reference Range Interpretation [...] 33.2 g/dL 31.6-35.1 RDW-SD (test code = 51828-8) 41.8 fL 39-49.9 RDW-CV (test code = 788-0) 12.3 % 12-15.5 PLT (test code = 777-3) See_Comment [Automated messa ge] The system which generated this result transmitted reference range: 166 - 358 10*3/?L. The reference range was not used to interpret this result as normal/abnormal. MPV (test code = 82205-3) 9.5 fL 9.5-12.9 NRBC/100 WBC (test code = 1084589310) See_Comment [Automated [employer] ssage] The system which generated this result transmitted reference range: 0.0 - 10.0 /100 WBCs. The reference range was not used to interpret this result as normal/abnormal. NRBC x10^3 (test code = 6642657214) <0.01 See_Comment [Automated messa ge] The system which generated this result transmitted reference range: 10*3/?L. The reference range was not used to interpret this result as normal/abnormal. GRAN MAT (NEUT) % (test code = 770-8) 74.1 % IMM GRAN % (test code = 0932672127) 0.40 % LYMPH % (test code = 736-9) 13.0 % MONO % (test code = 5905-5) 11.5 % EOS % (test code = 713-8) 0.8 % BASO % (test code = 706-2) 0.2 % GRAN MAT x10^3(ANC) (test code = 9802242848) 9.93 10*3/uL 1.88-7.09 H IMM GRAN x10^3 (test code = 3549041192) 0.06 10*3/uL 0-0.06 LYMPH x10^3 (test code = 731-0) 1.74 10*3/uL 1.32-3.29 MONO x10^3 (test code = 742-7) 1.55 10*3/uL 0.33-0.92 H EOS x10^3 (test code = 711-2) 0.11 10*3/uL 0.03-0.39 BASO x10^3 (test code = 704-7) 0.03 10*3/uL 0.01-0.07 Lab Interpretation (test code = 65388-9) [facility] [id number] 15:12:23CT Abdomen and Pelvis without contrast. CLINICAL [...] and urinalysisas well as blood test results. [facility], Radiant Results Inft User - 04/22/2020 [...] and urinalysisas well as blood test results. [facility]. METABOLIC PANEL (87135)2020-04-22 15:01:00* Test Item Value Reference Range Interpretation Comme nts NA (test code = 0190793560) 135 mmol/L 135-145 K (test code = 7258968073) 3.6 mmol/L 3.5-5 CL (test code = 8836932218) 103 mmol/L 98-108 CO2 TOTAL (test code = 7517961540) 24 mmol/L 23-31 AGAP (test code = 6559592077) 2-16 BUN (test code = 5558291900) 9 mg/dL 7-23 GLUCOSE (test code = 9952068803) 108 mg/dL 70-110 CREATININE (test code = 1067755102) 0.82 mg/dL 0.5-1.04 TOTAL BILI (test code = 9259925550) 0.5 mg/dL 0.1-1.1 CALCIUM (test code = 3227921459) 9.1 mg/dL 8.6-10.6 T PROTEIN (test code = 5524610659) 7.6 g/dL 6.3-8.2 ALBUMIN (test code = 8657101758) 4.3 g/dL 3.5-5 ALK PHOS (test code = 7882584489) 79 U/L 34-122 ALTv (test code = 1742-6) 18 U/L 5-35 AST(SGOT) (test code = 6109561717) 24 U/L 13-40 eGFR Calculation (Non-) (test code = 5066436641) mL/min/1.73m2 eGFR Calculation () (test code = 5701068501) mL/min/1.73m2 EDGAR (test code = EDGAR) Association [...] or urine or abnormalities in imaging tests). [facility]* Test Item Value Reference Range Interpretation Comme nts APPEARANCE (test code = 0192445611) Hazy Clear A COLOR (test code = 7972165903) Yellow Yellow PH (test code = 3787387463) 4.8-8.0 SP GRAVITY (test code = 8131737343) 1.003-1.030 GLU U QUAL (test code = 6350887919) Normal Normal BLOOD (test code = 4871321728) 1+ Negative A KETONES (test code = 5591721957) 5 mg/dL Negative A PROTEIN (test code = 2887-8) Negative Negative UROBILIN (test code = 5313168364) Normal Normal BILIRUBIN (test code = 7682021324) Negative Negative NITRITE (test code = 3233031030) Positive Negative A LEUK VERNA (test code = 1313472791) 25/uL Negative A RBC/HPF (test code = 4942447655) See_Comment [[employer]] The system which generated this result transmitted reference range: 0 - 3 HPF. The reference range was not used to interpret this result as normal/abnormal. WBC/HPF (test code = 0530882970) See_Comment H [Automated messa ge] The system which generated this result transmitted reference range: 0 - 5 HPF. The reference range was not used to interpret this result as normal/abnormal. BACTERIA (test code = 6901825150) Moderate Negative A MUCOUS (test code = 6787937958) Moderate Negative LPF A SQ EPITH (test code = 4345127050) HPF Lab Interpretation (test code = 12670-3) [id number]* Test Item Value Reference Range Interpretation Comme nts POCT PREG (test code = 1605) negative On board controls acceptable with C Line (test code = 3574) present POCT PREG LOT # (test code = 3575) [id number] POCT PREG TEST DATE ( test code = 3576) 2021-11-30 Lab Interpretation (test cod e = 62195-8) Normal [facility]"
[2024-12-18] MEDS ORDERED: IPRATROPIUM BROM 0.5MG/2.5ML ONE (18:27)
[2024-12-18] MEDS ORDERED: ALBUTEROL 2.5 MG/3 ML NEB SOL ONE (18:27)
[2024-12-18] MEDS ORDERED: ONDANSETRON 4 MG (ODT) TAB ONE (18:28)
[2024-12-18 19:00] LABS: Influenza A Ag Negative; Influenza B Ag Negative; SARS-CoV-2 Antigen Rapid Res Negative (Negative)
[2024-12-18 19:11] LABS: Sqamous Epithelial <5 /HPF (None Seen); Urine Crystals Unidentified Few /HPF (None Seen); Urine Culture Reflex Order NOT NEEDED; Urine Microscopic Reflex YN ORDER UMIC
--- NOTE | 2024-12-18 19:36 | RAD REPORT ---
EXAM: Chest Pa And Lat (2 Views) HISTORY: 34 years Female back pain;Cough;Chest pain COMPARISON: 09/06/2019 FINDINGS: LUNGS/PLEURA: The lungs are clear. No pleural effusions or pneumothorax. No pulmonary edema. CARDIAC/MEDIASTINUM: The cardiac silhouette is within normal limits. UPPER ABDOMEN: No significant abnormality. BONES: No acute abnormality. LINES/TUBES/OTHER: N/A IMPRESSION: No evidence of acute cardiopulmonary disease.
--- NOTE | 2024-12-18 20:22 | ER ---
Nurse's Notes [facility] Name: Sharon Bee Age: 34 yrs Sex: Female : 1990 Arrival Date: 12/18/2024 Time: 16:43 Bed 13 Private MD: Diagnosis: Cough;Acute pharyngitis, unspecified;Nausea Presentation: 12/18 17:03 Chief complaint: Patient states: SHE WAS HERE 2 DAYS AGO AND CONTINUES TO HAVE COUGH, dd2 WHEEZING, BACK PAIN, SORE THROAT, DIARRHEA AND FEELING WEAK. Coronavirus screen: congestion, cough unrelated to allergies, difficulty breathing, fatigue, fever, sore throat. Ebola Screen: No symptoms or risks identified at this time. Initial Sepsis Screen: Does the patient meet any 2 criteria? No. Patient's initial sepsis screen is negative. Does the patient have a suspected source of infection? No. Patient's initial sepsis screen is negative. Risk Assessment: Do you want to hurt yourself or someone else? Patient reports no desire to harm self or others. Onset of symptoms was December 15, 2024. 17:03 Method Of Arrival: Ambulatory dd2 17:03 Acuity: MARZENA 3 dd2 Triage Assessment: 17:05 General: Appears uncomfortable, Behavior is calm, cooperative, appropriate for age. dd2 Pain: Complains of pain in back and throat. EENT: Reports nasal congestion pain when swallowing. Respiratory: Reports cough that is pain with cough. GI: Reports diarrhea. 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 - Infectious Disease History:: Denies. - Social history:: Smoking status: Reported history of juuling and/or vaping. Screenin:52 [facility] ED Fall Risk Assessment (Adult) History of falling in the last 3 months, ar8 including since admission No falls in past 3 months (0 pts) Confusion or Disorientation No (0 pts) Intoxicated or Sedated No (0 pts) Impaired Gait No (0 pts) Mobility Assist Device Used No (0 pt) Altered Elimination No (0 pt) Score/Fall Risk Level 0 - 2 = Low Risk Oriented to surroundings, Maintained a safe environment. Abuse screen: Denies threats or abuse. Nutritional screening: No deficits noted. Tuberculosis screening: No symptoms or risk factors identified. Assessment: 17:52 General: Appears in no apparent distress. Behavior is calm, cooperative. Pain: ar8 Complains of pain in left lower back and right lower back. Neuro: Level of Consciousness is awake, alert, obeys commands, Oriented to person, place, time, situation. Cardiovascular: Patient's skin is warm and dry. Respiratory: Reports cough that is productive, Airway is patent Trachea midline Respiratory effort is even, unlabored, Respiratory pattern is regular, symmetrical, Breath sounds are clear bilaterally. GI: Reports diarrhea. : No signs and/or symptoms were reported regarding the genitourinary system. EENT: Reports nasal congestion nasal discharge. 19:00 Reassessment: Report received from KELLEY Richey. cc6 19:28 General: Appears in no apparent distress. comfortable, Behavior is calm, cooperative. cc6 Pain:. Neuro: Level of Consciousness is awake, alert, obeys commands. Cardiovascular: Patient's skin is warm and dry. Respiratory: Reports cough that is productive, Airway is patent Respiratory effort is even, unlabored, Respiratory pattern is regular, symmetrical, Breath sounds are coarse in left posterior lower lobe. GI: Reports diarrhea, nausea. : No signs and/or symptoms were reported regarding the genitourinary system. EENT: Reports nasal congestion nasal discharge. 20:28 Reassessment: No changes from previously documented assessment. Patient and/or family cc6 updated on plan of care and expected duration. Pain level reassessed. Patient is alert, oriented x 3, equal unlabored respirations, skin warm/dry/pink. Vital Signs: 17:03 BP 132 / 86; Pulse 84; Resp 17; Temp 99.3; Pulse Ox 98% ; Weight 99.79 kg; Height 5 ft. dd2 4 in. ; Pain 5/10; 17:52 BP 146 / 97; Pulse 85; Resp 20; Pulse Ox 99% on R/A; ar8 18:40 BP 151 / 96; Pulse 82; Resp 22; Pulse Ox 99% ; ar8 19:28 BP 134 / 81; Pulse 82; Resp 16; Pulse Ox 100% on R/A; cc6 20:54 BP 132 / 84; Pulse 95; Resp 16; Pulse Ox 100% on R/A; cc6 17:03 Body Mass Index 37.76 (99.79 kg, 162.56 cm) dd2 17:03 Pain Scale: Adult dd2 ED Course: 16:45 Patient arrived in ED. cj3 16:46 Doug Mendoza PA-C is PHCP. cp 16:46 Rosana Funes MD is Attending Physician. cp 17:05 Triage completed. dd2 17:05 Arm band placed on right wrist. dd2 17:51 Kaiden Craig, KELLEY is Primary Nurse. ar8 17:52 Bed in low position. Call light in reach. Side rails up X 1. Provided Education on: ar8 plan of care. 17:52 No provider procedures requiring assistance completed. ar8 18:40 Test, Urine Sent. ar8 18:40 UA Rfx David Cult if indicated Sent. ar8 19:03 Report given to KELLEY Kahn. ar8 19:29 XRAY Chest Pa And Lat (2 Views) In Process Unspecified. EDMS 20:55 Patient did not have IV access during this emergency room visit. cc6 Administered Medications: 19:22 Drug: Ondansetron PO 4 mg PO once Route: PO; cc6 19:53 Follow up: Response: No adverse reaction; Nausea is decreased cc6 19:22 Drug: Albuterol Inhalation 2.5 mg Inhalation once Route: Inhalation; cc6 19:22 Drug: Ipratropium Inhalation Aerosol 0.5 mg Inhalation once Route: Inhalation; cc6 19:22 Drug: Dexamethasone PO 10 mg PO once Route: PO; cc6 19:52 Follow up: Response: No adverse reaction cc6 19:24 Not Given (not in inventoryy): tussionex pennkinetic ersuspension 5 ml PO once cc6 Medication: 17:52 VIS not applicable for this client. ar8 Outcome: 20:22 Discharge ordered by . cp 20:55 Discharged to home ambulatory, cc6 20:55 Condition: stable 20:55 Discharge instructions given to patient, Instructed on discharge instructions, follow up and referral plans. medication usage, Demonstrated understanding of instructions, follow-up care, medications, Prescriptions given X 4, 20:56 Patient left the ED. cc6 Signatures: Dispatcher [employer] EDVT Page, BELTRAN Camacho PA-C, cp, Cassandra RN RN cc6 BASLIIO PORTILLO RN RN dd2 Cha Romo cj3 Kaiden Craig RN RN ar8 Corrections: (The following items were deleted from the chart) 19:39 19:28 Respiratory: Reports cough that is productive, Airway is patent Respiratory cc6 effort is even, unlabored, Respiratory pattern is regular, symmetrical, cc6 :39 19:28 GI: Reports nausea, cc6 cc6
--- NOTE | 2024-12-18 20:22 | EDPHYS ---
Physician Documentation [facility] Name: Sharon Bee Age: 34 yrs Sex: Female : 1990 Arrival Date: 12/18/2024 Time: 16:43 Bed 13 Private MD: ED Physician Rosana Funes HPI: 12/18 18:25 This 34 yrs old Female presents to ER via Ambulatory with complaints of cp Wheezing, Cough, Diarrhea, Dizziness, Lightheaded. 18:25 The patient or guardian reports cough, that is intermittent. Onset: The cp symptoms/episode began/occurred 3 day(s) ago. Associated signs and symptoms: Pertinent positives: nausea, diarrhea, dizziness and wheezing, Pertinent negatives: chest pain, fever, vomiting. Severity of symptoms: in the emergency department the symptoms are unchanged despite home interventions. 18:25 Patient reports she was seen 2 days ago and tested negative for Covid and Influenza and cp Strep. Patient reports she was diagnosed with laryngitis. 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 - Infectious Disease History:: Denies. - Social history:: Smoking status: Reported history of juuling and/or vaping. ROS: 18:30 Constitutional: Negative for fever, cp 18:30 Respiratory: Positive for cough, "sounds productive", wheezing, cp 18:30 Abdomen/GI: Positive for nausea, diarrhea, Negative for abdominal pain, cp 18:30 Eyes: Negative for injury, pain, redness, and discharge, cp 18:30 ENT: Positive for sore throat, 18:30 Cardiovascular: Negative for chest pain, 18:30 Back: Positive for pain at rest, pain with movement, of the left subscapular area, 18:30 Neuro: Negative for altered mental status, weakness, cp 18:30 All other systems are negative, Exam: 18:35 Head/Face: Normocephalic, atraumatic. cp 18:35 Constitutional: The patient appears in no acute distress, alert, awake, non-toxic, well developed, well nourished, overweight 18:35 Eyes: Periorbital structures: appear normal, Conjunctiva: normal, no exudate, no injection, Sclera: no appreciated abnormality, Lids and lashes: appear normal, bilaterally, 18:35 ENT: External ear(s): are unremarkable, Nose: is normal, Mouth: Lips: moist, Oral mucosa: moist, Posterior pharynx: Airway: no evidence of obstruction, patent, Tonsils: no enlargement, no exudate, erythema, that is mild, exudate, is not appreciated, Voice: is normal, 18:35 Neck: ROM/movement: limited range of motion, is not appreciated, Meningeal signs: are not present, 18:35 Chest/axilla: Inspection: normal, 18:35 Cardiovascular: Rate: normal, Rhythm: regular, 18:35 Respiratory: the patient does not display signs of respiratory distress, Respirations: normal, no use of accessory muscles, no retractions, labored breathing, is not present, Breath sounds: decreased breath sounds, are not appreciated, stridor, is not appreciated, 18:35 Abdomen/GI: Exam negative for discomfort, distension, guarding, Inspection: abdomen appears normal, 18:35 Back: pain, that is mild, of the left subscapular area, ROM is normal, 18:35 Neuro: Orientation: to person, place \\T\\ time. Mentation: is normal, Vital Signs: 17:03 BP 132 / 86; Pulse 84; Resp 17; Temp 99.3; Pulse Ox 98% ; Weight 99.79 kg; Height 5 ft. dd2 4 in. ; Pain 5/10; 17:52 BP 146 / 97; Pulse 85; Resp 20; Pulse Ox 99% on R/A; ar8 18:40 BP 151 / 96; Pulse 82; Resp 22; Pulse Ox 99% ; ar8 19:28 BP 134 / 81; Pulse 82; Resp 16; Pulse Ox 100% on R/A; cc6 20:54 BP 132 / 84; Pulse 95; Resp 16; Pulse Ox 100% on R/A; cc6 17:03 Body Mass Index 37.76 (99.79 kg, 162.56 cm) dd2 17:03 Pain Scale: Adult dd2 MDM: 17:00 Medical Screening Exam initiated cp 19:00 Differential diagnosis: bronchitis, flu, URI, pneumonia, otitis media. cp 20:21 Data reviewed: vital signs, nurses notes, lab test result(s), radiologic studies, plain cp films, and as a result, I will discharge patient. 20:22 I considered the following discharge prescriptions or medication management in the cp emergency department Medications were administered in the Emergency Department. See MAR. 20:22 Counseling: I had a detailed discussion with the patient and/or guardian regarding the cp historical points, exam findings, and any diagnostic results supporting the discharge/admit diagnosis, lab results, radiology results, to return to the emergency department if symptoms worsen or persist or if there are any questions or concerns that arise at home. Response to treatment: the patient's symptoms have mildly improved after treatment, and as a result, I will discharge patient. 12/18 18:23 Order name: UA Rfx David Cult if indicated; Complete Time: 19:15 12/18 19:15 Interpretation: Normal except: [facility] Turbid; UBLD 3+. 12/18 18:23 Order name: Test, Urine; Complete Time: 19:15 12/18 18:23 Order name: COVID-19 Ag + Flu A+B Ag; Complete Time: 19:15 12/18 19:15 Interpretation: Reviewed. 12/18 18:23 Order name: XRAY Chest Pa And Lat (2 Views); Complete Time: 19:50 12/18 19:50 Interpretation: Report reviewed. cp Administered Medications: 19:22 Drug: Ondansetron PO 4 mg PO once Route: PO; cc6 19:53 Follow up: Response: No adverse reaction; Nausea is decreased cc6 19:22 Drug: Albuterol Inhalation 2.5 mg Inhalation once Route: Inhalation; cc6 19:22 Drug: Ipratropium Inhalation Aerosol 0.5 mg Inhalation once Route: Inhalation; cc6 19:22 Drug: Dexamethasone PO 10 mg PO once Route: PO; cc6 19:52 Follow up: Response: No adverse reaction cc6 19:24 Not Given (not in inventoryy): tussionex pennkinetic ersuspension 5 ml PO once cc6 Disposition Summary: 12/18/24 20:22 Discharge Ordered Notes: Location: Home cp Problem: new cp Symptoms: have improved cp Condition: Stable cp Diagnosis - Cough cp - Acute pharyngitis, unspecified cp - Nausea cp Followup: cp - With: Private Physician - When: 2 - 3 days - Reason: Worsening of condition Discharge Instructions: - Discharge Summary Sheet cp - Nausea, Adult cp - Pharyngitis cp - Sore Throat cp - Cough, Adult cp Forms: - Medication Reconciliation Form cp - Antibiotic Education cp - Prescription Opioid Use cp - Patient Portal Instructions cp - Leadership Thank You Letter cp - Work release form cc6 Prescriptions: - Bromfed DM 2-30-10 mg/5 mL Oral syrup - administer 5 milliliter ORAL route every 4 to 6 hours as needed for cold cp symptoms; 240 milliliter; Refills: 0, Product Selection Permitted - albuterol sulfate 90 mcg/actuation Inhalation HFA Aerosol Inhaler - inhale 1 puff INHALATION route every 4 to 6 hours as needed for shortness of cp breath or wheezing; 1 unit; Refills: 0, Product Selection Permitted - Zithromax Z-Juancarlos 250 mg Oral Tablet - take 1 tablet ORAL route as directed for 5 days Day 1 - take two (2) tablets cp one time. Day 2, 3, 4 , 5 take one (1) tablet once daily.; 6 tablet; Refills: 0, Product Selection Permitted - Medrol (Juancarlos) 4 mg Oral Tablets, Dose Pack - take 1 tablet ORAL route as directed - follow package instructions; 1 packet; cp Refills: 0, Product Selection Permitted Signatures: Dispatcher [employer] EDMS Doug Mendoza PA-C PA-C cp Cardoza, Cassandra, RN RN cc6 BASILIO PORTILLO RN RN dd2 Kaiden Craig, RN RN ar8 Corrections: (The following items were deleted from the chart) 12/19 20:36 20:30 Constitutional: The patient appears in no acute distress, alert, awake, cp non-toxic, well developed, well nourished, overweight cp 20:36 20:30 Head/Face: Normocephalic, atraumatic. cp cp 20:36 20:30 Eyes: Periorbital structures: appear normal, Conjunctiva: normal, no exudate, no cp injection, Sclera: no appreciated abnormality, Lids and lashes: appear normal, bilaterally, cp 20:36 20:30 ENT: External ear(s): are unremarkable, Nose: is normal, Mouth: Lips: moist, Oral cp mucosa: moist, Posterior pharynx: Airway: no evidence of obstruction, patent, Tonsils: no enlargement, no exudate, erythema, that is mild, exudate, is not appreciated, Voice: is normal, cp 20:36 20:30 Neck: ROM/movement: limited range of motion, is not appreciated, Meningeal signs: cp are not present, cp 20:36 20:30 Chest/axilla: Inspection: normal, cp cp 20:36 20:30 Cardiovascular: Rate: normal, Rhythm: regular, cp cp 20:36 20:30 Respiratory: the patient does not display signs of respiratory distress, cp Respirations: normal, no use of accessory muscles, no retractions, labored breathing, is not present, Breath sounds: decreased breath sounds, are not appreciated, stridor, is not appreciated, cp 20:36 20:30 Abdomen/GI: Exam negative for discomfort, distension, guarding, Inspection: cp abdomen appears normal, cp 20:36 20:30 Back: pain, that is mild, of the left subscapular area, ROM is normal, cp cp 20:36 20:30 Neuro: Orientation: to person, place \\T\\ time. Mentation: is normal, cp cp
[2024-12-18 21:04] VITALS: TEMP 99.3
[2024-12-18 21:07] VITALS: O2SAT 100
[2024-12-18 21:09] VITALS: BP 132/84
== END 2024-12-18 20:56 | disposition home or self-care (01) ==
LOC: ER 16:43
DX: R05.9 Cough, unspecified (principal); J02.9 Acute pharyngitis, unspecified; R11.0 Nausea; Z11.52 Encounter for screening for COVID-19
CPT/HCPCS: 36415; 71046; 81001; 81025; 87428; 99284; J7613; J7644; J8540; Q0162